=== PATIENT | female | born 1935 | race Caucasian/White ===

== ENCOUNTER → 2016-11-29 | Outpatient (CLI) | payer MEDICARE, OTHER ==
[~2016-11-29] MED LIST: AMLO10TA4 PO; AMLO10TA82 PO; AMLO5TAB2 PO; APIX5TAB2 PO; ATEN-158 PO; CALC-9 PO; CYAN500L PO; DGX.125T PO; DICL75TA2 PO; FLEC50TA18 PO; FOLI0.4T2 PO; FURO20TA PO; FURO20TA4 PO; GLUC-113 PO; HYDR-3714 PO; HYDR-3720 PO; IRON150C6 PO; LEVO75TA57 PO; LOVA10TA PO; LOVA20TA2 PO; MULT-963 PO; OMEG1CAP51 PO
--- OUTSIDE RECORDS SUMMARY | 2016-11-29 13:13 | XMS REPORT | Continuity of Care Document ---
Author Author [facility] Organization [facility] Address Unknown Phone Unavailable Care Team Providers Care Government Property Inspector Name Role Phone No Pcp, Na PCP Unavailable Source Comments Some departments are not documenting in the electronic medical record. If you do not see the information that you expected, contact Release of Information in the Health Information Management department at [phone] for further assistance in locating additional records.[facility] Active Allergies and Adverse Reactions No Known Allergies Current Medications Prescription Sig. Disp. Refills Start End Date Status Date apixaban(+) (ELIQUIS) 5 Take 5 mg by mouth twice Active mg Tab tablet daily. atenolol (TENORMIN) 50 mg Take 50 mg by mouth Active tablet daily. amLODIPine (NORVASC) 10 Take 10 mg by mouth Active mg tablet daily. diclofenac sodium DR Take 75 mg by mouth twice Active (VOLTAREN) 75 mg tablet daily. flecainide (TAMBOCOR) 50 Take 50 mg by mouth every Active mg tablet 8 hours. levothyroxine (SYNTHROID) Take 75 mcg by mouth Active 75 mcg tablet daily. lovastatin(+) (MEVACOR) Take 10 mg by mouth Active 10 mg tablet daily. Calcium-Cholecalciferol Take 1 Cap by mouth Active (D3) (CALCIUM 600 + D(3)) daily. 600 mg calcium- 200 unit cap fish oil /omega-3 fatty Take 1 Cap by mouth Active acids (SEA-OMEGA) daily. 340/1000 mg capsule cyanocobalamin(+) Take 500 mcg by mouth Active (VITAMIN B-12) 500 mcg daily. tablet MULTIVITAMIN PO Take 1 Cap by mouth Active daily. folic acid 400 mcg tablet Take 400 mcg by mouth Active daily. digoxin (LANOXIN) 125 mcg Take 0.125 mg by mouth Active tablet daily. Active Problems Problem Noted Date Atrial fibrillation (HCC) 08/16/2013 Hypothyroidism 08/16/2013 HTN (hypertension) 08/16/2013 Social History Tobacco Use Types Packs/Day Years Used Date Never Smoker Smokeless Tobacco: Never Used Alcohol Use Drinks/Week oz/Week Comments No Last Filed Vital Signs Vital Sign Reading Time Taken Blood Pressure 128/74 08/26/2013 9:50 AM CDT Pulse 59 08/26/2013 9:50 AM CDT Temperature - - Respiratory Rate - - Height 1.651 m (5' 5") 08/26/2013 9:50 AM CDT Weight 62.959 kg (138 lb 12.8 08/26/2013 9:50 AM CDT oz) Body Mass Index 23.1 08/26/2013 9:50 AM CDT Oxygen Saturation - - Plan of Care Health Maintenance Due Date Last Done Comments Physical (Comprehensive) 1944 Exam Pertussis Vaccine 1948 Tetanus Vaccine 1954 Breast Cancer Screening 1977 Shingles Vaccine 1997 Osteoporosis Screening 2002 Prevnar/Pneumovax (#1) 2002 Influenza Vaccine 07/21/2015 Results from Last 3 Months Not on file
--- NOTE | 2016-11-30 14:47 | Diagnostic Imaging Report ---
Bilateral screening mammogram The current study was also evaluated with a Computer Aided Detection (CAD) system. INDICATION: Screening. No current complaints stated on the questionnaire. COMPARISON: 11/27/2015. FINDINGS: The breasts are composed of scattered fibroglandular densities. There are scattered benign-appearing calcifications and vascular calcification seen. Allowing for technique and positional differences, no suspicious change is seen. IMPRESSION: No significant change. ACR BI-RADS Category 2: Benign findings. Result letter will be mailed to the patient. Note: At least 10% of breast cancer is not imaged by mammography. Dictated by: Dictated on workstation # [id number]
== END ==
LOC: RAD 13:09
PROVIDERS: ATTEND Internal Medicine
DX: Z12.31 Encounter for screening mammogram for malignant neoplasm of breast (principal)

== ENCOUNTER → 2017-02-09 | Outpatient (CLI) | payer MEDICARE, OTHER ==
--- NOTE | 2017-02-09 10:38 | Diagnostic Imaging Report ---
INDICATION: Pneumonia and cough. PA and lateral views of the chest are obtained. Comparison is made to the study of 03/28/2016. FINDINGS: Heart size and pulmonary vascularity are within normal limits, and the lungs are clear, bilaterally. IMPRESSION: Unremarkable chest. Dictated by: Dictated on workstation # [id number]
== END ==
LOC: RAD 09:58
PROVIDERS: ATTEND Internal Medicine
DX: R05 Cough (principal)
CPT/HCPCS: 71020

== ENCOUNTER → 2017-02-27 | Outpatient (CLI) | payer MEDICARE, OTHER ==
--- NOTE | 2017-02-28 08:10 | ECHOCARDIOGRAPHY REPORT ---
PROCEDURE PHYSICIAN: THERON BELLA DATE OF PROCEDURE: 02/27/2017 TWO DIMENSIONAL ECHOCARDIOGRAM REPORT PRIMARY PHYSICIAN: OTHER PHYSICIAN: REFERRING PHYSICIAN: Dr. Cheyenne Sanders ORDERING PHYSICIAN: INDICATION FOR THE PROCEDURE: Atrial fibrillation. MEASUREMENTS DERIVED VALUES LV DIAMETER (LAX) NORMALS NORMALS Diastolic 3.5 (3.6-5.2) Eject. Fract. 60% (60%+/-6%) Systolic (2.3-3.9) Diastolic Vol. % Shortening (0.22-0.42) Systolic Vol. Aortic Root IVS THICKNESS Diastolic 1.1 (0.6-1.1) LVPW THICKNESS Diastolic 1.1 (0.6-1.1) LA DIAMETER Systolic 3.3 (2.1-3.7) FINDINGS: 1. Technical quality is good. 2. The left ventricle is normal in size with normal contractility. Systolic function appeared to be normal. Estimated ejection fraction 60%. Diastolic dysfunction is suggested by Doppler. 3. The left atrium is normal in size. No clot or thrombus were seen within the left atrium. 4. The right atrium and right ventricle are normal in size. No clot or thrombus were seen within the right side. 5. Mitral valve is normal in morphology with mild mitral regurgitation noted by color Doppler flow. No mitral valve prolapse. No mitral valve stenosis. 6. Aortic valve is trileaflet with normal opening and closing pattern. No significant aortic stenosis or regurgitation was seen. 7. Tricuspid valve is normal in morphology with mild tricuspid regurgitation noted by color Doppler flow. Doppler across tricuspid valve estimated pulmonary artery pressure of 18+ right atrial pressure. 8. Pulmonic valve is functioning normally. 9. No pericardial effusion. IN CONCLUSION: 1. Normal left ventricular size and systolic function. Estimated ejection fraction 60%. Diastolic dysfunction is suggested by Doppler. 2. Mild mitral and tricuspid regurgitation. 3. Estimated pulmonary artery pressure of 25 mmHg. Job ID: [id number] Dictated Date: 02/27/2017 18:14:12 Psychic Reader Date: 02/28/2017 08:05:23 / ian
== END ==
LOC: CARD 12:54
PROVIDERS: ATTEND Physician Assistant
DX: I48.0 Paroxysmal atrial fibrillation (principal); I10 Essential (primary) hypertension; E78.2 Mixed hyperlipidemia; Z82.49 Family history of ischemic heart disease and other diseases of the circulatory system
CPT/HCPCS: 93306

== ENCOUNTER → 2017-03-01 | Outpatient (CLI) | payer MEDICARE, OTHER ==
[~2017-03-01] MED LIST changes: +CATHETER FLUSH 10 ML SYR IV PRN; +REGADENOSON 0.4 MG/5 ML SYR (LEXISCAN) IV ONE
--- NOTE | 2017-03-02 08:54 | STRESS TEST ---
PROCEDURE PHYSICIAN: THERON BELLA DATE OF PROCEDURE: 03/01/2017 LEXISCAN MYOVIEW STRESS TEST REPORT: REFERRING PHYSICIAN: Dr. Cheyenne Sanders. INDICATION FOR THE PROCEDURE: Atrial fibrillation. BASELINE HEART RATE: 61 BASELINE BLOOD PRESSURE: 140/74 BASELINE EKG: Sinus rhythm with no ischemic changes. IN SUMMARY: The patient was injected with 10.97 mCi of technetium 99 Myoview and the resting images were obtained. Then the patient received 0.4 mg of Lexiscan followed by 31.6 mCi of technetium 99 Myoview. Throughout the test, there were no EKG changes. The resting and stress images were reviewed and compared in the short axis, horizontal long axis, and vertical long axis views. Review of the images showed breast attenuation with reversible ischemia involving the whole anterior wall, anteroapical lateral wall and anterior septum. SSS is 10, SDS 8, TID value 0.9. On the gated images, the left ventricle appeared to be normal size with normal contractility. Calculated ejection fraction 71%. IN CONCLUSION: 1. The patient tolerated Lexiscan well. 2. Breast attenuation with reversible ischemia involving the whole anterior wall, anterolateral wall and anterior septum. 3. Normal left ventricular size with normal contractility. Calculated ejection fraction 71%. Job ID: [id number] Dictated Date: 03/01/2017 17:01:00 Intermediate Project Manager Date: 03/02/2017 08:48:58 / ian
== END ==
LOC: CARD 06:53
PROVIDERS: ATTEND Physician Assistant
DX: I48.0 Paroxysmal atrial fibrillation (principal); I10 Essential (primary) hypertension; E78.2 Mixed hyperlipidemia; Z82.49 Family history of ischemic heart disease and other diseases of the circulatory system
CPT/HCPCS: 78452; 93017

== ENCOUNTER 2017-03-22 06:47 | Day surgery (SDC) | payer MEDICARE, OTHER ==
[2017-03-22] VITALS (10 sets, daily range): BP systolic 96–139; BP diastolic 53–77
[~2017-03-22] VITALS: Ht 160 cm; Wt 64.9 kg
[~2017-03-22 06:47] MED LIST changes: -CATHETER FLUSH 10 ML SYR IV PRN; -REGADENOSON 0.4 MG/5 ML SYR (LEXISCAN) IV ONE
[2017-03-22] MEDS ORDERED: LIDOCAINE 1% INJ 20 ML (XYLOCAINE) VIAL ONE (06:52)
[2017-03-22] MEDS ORDERED: NS IV 1000 ML 1,000 ML ONE (06:52)
[2017-03-22] MEDS ORDERED: HEParin (CATH LAB) 2,000 ML IV ONE (06:53)
[2017-03-22 07:21] LABS: MEAN PLATELET VOLUME 10.1 FL (7.4-10.4); RED BLOOD COUNT 4.13 10^6/uL (4.35-5.85); RED CELL DISTRIBUTION WIDTH 13.3 % (10.0-14.5); WHITE BLOOD COUNT 5.9 10^3/uL (4.3-11.0)
[2017-03-22 07:29] LABS: INR 1.1 (0.8-1.4); PROTHROMBIN TIME PATIENT 13.6 SEC (12.2-14.7)
[2017-03-22] MEDS ORDERED: NS IV 1000 ML 1,000 ML IV SCH ×2 (07:30→09:38)
[2017-03-22 07:42] LABS: ALANINE AMINOTRANSFERASE 40 U/L (0-55); ALBUMIN 4.7 G/DL (3.2-4.5); ANION GAP 13 MMOL/L (5-14); ASPARTATE AMINO TRANSFERASE 37 U/L (5-34); BILIRUBIN,TOTAL 0.9 MG/DL (0.1-1.0); BLOOD UREA NITROGEN 12 MG/DL (7-18); BUN/CREATININE RATIO 13; CALCIUM 9.8 MG/DL (8.5-10.1); CARBON DIOXIDE 24 MMOL/L (21-32); CHLORIDE 102 MMOL/L (98-107); CHOLESTEROL 195 MG/DL (< 200); CREATININE SERUM 0.89 MG/DL (0.60-1.30); DIRECT LDL 103 MG/DL (1-129); GFR ESTIMATED > 60; GLUCOSE 101 MG/DL (70-105); POTASSIUM 3.6 MMOL/L (3.6-5.0); SODIUM 139 MMOL/L (135-145); TOTAL PROTEIN 7.5 G/DL (6.4-8.2); TRIGLYCERIDES 71 MG/DL (<150); VLDL CHOLESTEROL 14 MG/DL (5-40)
--- NOTE | 2017-03-22 08:10 | Diagnostic Imaging Report ---
INDICATION: Preoperative evaluation prior to coronary angioplasty. Portable upright view of the chest is obtained with comparison made to study of 02/09/2017. FINDINGS: Heart size and pulmonary vascularity are within normal limits, and the lungs are clear, bilaterally. IMPRESSION: Unremarkable chest. Dictated by: Dictated on workstation # [id number]
[2017-03-22] MEDS ORDERED: MIDAZOLAM 5 MG/5 ML (VERSED) VIAL ONE (08:49)
[2017-03-22] MEDS ORDERED: fentaNYL INJECTION 100 MCG/2 ML AMP ONE (08:49)
--- NOTE | 2017-03-22 08:54 | Cardiac Procedure Note-CS/ASA ---
Pre-Procedure Note Pre-Op Procedure Note H&P Reviewed The H&P was reviewed, patient examined and no changes noted. Date H&P Reviewed: March 22, 2017 Time H&P Reviewed: 08:54 Conscious Sedation Pre-Proced Time Reviewed: 08:54 ASA Class: 3 Airway Mallampati Classification: (blackfeet appropriate class) I. II. III, IV Lungs Heart ASA score ASA 1: a normal healthy patient ASA 2: a patient with a mild systemic disease (mid diabetes, controlled hypertension, obesity x ASA 3: a patient with a severe systemic disease that limits activity (angina , COPD, prior Myocardial infarction) ASA 4: a patient with an incapacitating disease that is a constant threat to life (CHF, renal failure) ASA 5: a moribund patient not expected to survive 24 hrs. (ruptured aneurysm) ASA 6: a declared brain patient whose organs are being harvested. For emergent operations, add the letter E after the classification Grade 3 Sedation Plan: Analgesia, Amnesia, Plan communicated to team members, Discussed options with patient/fam, Discussed risks with patient/fam Note The patient is an appropriate candidate to undergo the planned procedure, sedation, and anesthesia. The patient immediately re-assessed prior to indication. THERON BELAL MD March 22, 2017 08:54
--- NOTE | 2017-03-22 09:40 | Discharge Inst-Post CATH ---
Discharge Inst-CATH Post Cardiac Cath D/C Inst Follow Up/Plan Appointment with Dr Mcfarland's office in 2-4 weeks CARDIAC CATH DISCHARGE INSTRUCTIONS *Hold Metformin for 48 hours post heart cath. ACTIVITY * Go Home directly and rest. * Limit activity of the leg (or wrist if it was used) for 7 days including aerobics, swimming, jogging, bicycling, etc. * Restrict stair-climbing for 7 days if possible, if not, climb up with your non -cath leg, then bring together on the same step. * Avoid lifting, pushing, pulling or excessive movement of the affected extremity for 7 days. * Customary sexual activity may be resumed after 2 days-use caution not to use a position that strains or causes pain to the affected extremity. * No driving for 24 hours. * NO SMOKING. * Avoid straining for bowel movements for 7 days. * Gentle walking on level ground is allowed. * Returning to work will depend on the type of procedure and the results. Your doctor will discuss this with you. CALL YOUR DOCTOR FOR ANY OF THE FOLLOWING: *If bleeding from the puncture site occurs- Apply gentle pressure to site with clean cloth and call your doctor or EMS. * If a knot or lump forms under the skin, increases in size, or causes pain. * If bruising appears to be worsening or moving further down your leg instead of disappearing. * Temperature above 101 F. CARE OF YOUR GROIN INCISION; * Bruising or purple discoloration of the skin near the puncture site is common. * You may shower only, no bathtub bathing for 5 days. Be careful to avoid slipping as your leg may feel stiff. * If a closure device was used on your femoral artery, please see the attached guide regarding care of the device and your leg. * REMOVE the dressing from your groin the next day after your procedure in the shower. CARE OF YOUR WRIST INCISION; * Bruising or purple discoloration of the skin near the puncture site is common. * You may shower. * DO NOT submerge wrist. * Remove dressing in 24 hours. THERON MCFARLAND MD March 22, 2017 09:40
[2017-03-22] MEDS ORDERED: PATIENT MAY USE OWN MEDS, ALL PO SCH (09:45)
--- NOTE | 2017-03-22 18:25 | CARDIAC CATHETERIZATION ---
DATE OF SERVICE: 03/22/2017 CARDIAC CATHETERIZATION REFERRING PHYSICIAN: Dr. Cheyenne Sanders. BRIEF HISTORY: The patient is a 81-year-old lady with history of sick sinus syndrome, paroxysmal atrial fibrillation. The patient had an abnormal stress test with anterior wall ischemia. She was scheduled for left heart catheterization, possible PTCA. PROCEDURE NOTE: After explaining the procedure to the patient, all pros and cons were explained. All questions were answered. The patient signed the consent and then she was placed on the cardiac catheterization laboratory. Right groin was prepped in a sterile fashion. Local anesthesia applied to the right groin. A 6-[place] sheath was placed in the right femoral artery. Combination of right and left Elizabeth catheter were used to access the right and left coronary system. Multiple views were obtained. Pigtail catheter advanced to the left ventricular cavity. Pressure was done. No left ventriculogram was done. Pullback LV to aorta was done. Aortic arch angiogram was done. At the end of the procedure sheath was removed, Mynx device deployed, hemostasis achieved. TOTAL CONTRAST USED: 46 mL. TOTAL RADIATION DOSE: 15 mGy. FINDINGS: Hemodynamics: LV pressure 138/7, end-diastolic pressure of 7, aortic pressure 115/45, mean of 71. ANATOMY: 1. The left main coronary artery is bifurcating into left anterior descending and left circumflex artery with no obstructive disease. 2. Left anterior descending artery is moderate in size with mild disease, nonobstructive disease. 3. Left circumflex artery is moderate in size with mild disease, nonobstructive disease. 4. Right coronary artery is moderate in size, mild disease, no significant obstructive disease. 5. Left ventricle end diastolic pressure was normal. 6. Aortic arch angiogram was done in the left anterior oblique position, hypertensive changes in the aortic arch. No dissection or aneurysm was seen. Origin of the innominate artery, left subclavian artery and left carotid appeared normal. IN CONCLUSION: 1. Mild coronary artery disease, nonobstructive disease. 2. Normal left ventricular end diastolic pressure. 3. Hypertensive changes in the aortic arch. No dissection or aneurysm. DISCUSSION AND RECOMMENDATIONS: Medical therapy is recommended. No intervention is needed. It is noted that abnormal stress test is probably due to small vessel disease or extracardiac attenuation. FINAL DIAGNOSES: 1. Coronary artery disease. 2. Paroxysmal atrial fibrillation. 3. Sick sinus syndrome. 4. Hypertension. 5. Hyperlipidemia. Job ID: [id number] DocumentID: [id number] Dictated Date: 03/22/2017 09:43:05 Plan Coordinator Date: 03/22/2017 13:11:50 Dictated By: THERON BELLA MD
== END 2017-03-22 14:10 | disposition home or self-care (01) ==
LOC: CATH 06:47
PROVIDERS: ATTEND Internal Medicine Cardiovascular Disease
DX: R94.39 Abnormal result of other cardiovascular function study (principal); I48.0 Paroxysmal atrial fibrillation; I49.5 Sick sinus syndrome; I25.10 Atherosclerotic heart disease of native coronary artery without angina pectoris; I10 Essential (primary) hypertension; E78.5 Hyperlipidemia, unspecified; Z79.01 Long term (current) use of anticoagulants; Z79.899 Other long term (current) drug therapy
CPT/HCPCS: 36221; 36415; 71010; 80053; 80061; 85027; 85610; 85730; 87081; 93005; 93458

== ENCOUNTER → 2017-05-05 | Outpatient (CLI) | payer MEDICARE, OTHER | LOC: RT 12:52 | PROVIDERS: ATTEND Internal Medicine | DX: R06.02 Shortness of breath (principal) | CPT/HCPCS: 94060; 94726; 94729 ==

== ENCOUNTER → 2019-12-25 | Outpatient (CLI) | payer MEDICARE, OTHER ==
[~2019-12-25] VITALS: Ht 165 cm; Wt 68.0 kg
[~2019-12-25] MED LIST changes: +CATHETER FLUSH 10 ML SYR IV PRN; +REGADENOSON 0.4 MG/5 ML SYR (LEXISCAN) IV ONE
[2019-12-25 13:07] VITALS: BP 142/69
[2019-12-25 13:13] VITALS: BP 134/67
--- NOTE | 2019-12-25 18:03 | STRESS TEST ---
DATE OF SERVICE: 12/25/2019 LEXISCAN MYOVIEW STRESS TEST REFERRING PHYSICIAN: Cheyenne Sanders DO Baseline heart rate is 55. Baseline blood pressure is 142/69. Baseline EKG is sinus rhythm with no ischemic changes. In summary, the patient was injected with 9.97 mCi of technetium-99 Myoview and the resting images were obtained. Then, the patient received 0.4 mg of Lexiscan followed by 31.2 mCi of technetium-99 Myoview. Throughout the test, there were no EKG changes. The resting and stress images were reviewed and compared in the short axis, horizontal long axis, and vertical long axis views. Review of the images showed good radiotracer uptake with no significant ischemia or infarction. SSS is 4, SDS 2, TID value 1.01. On the gated images, the left ventricle appeared to be normal size with normal contractility. Calculated ejection fraction is 79%. CONCLUSION: 1. The patient tolerated Lexiscan well. 2. Breast attenuation with no significant ischemia or infarction on SPECT images. 3. Normal left ventricular size with normal contractility. Calculated ejection fraction is 79%. Job ID: [id number] DocumentID: [id number] Dictated Date: 12/25/2019 15:38:29 Pipe Stress Engineer Date: 12/25/2019 18:02:35 Dictated By: THERON BELLA MD
== END ==
LOC: CARD 12:01
PROVIDERS: ATTEND Internal Medicine Cardiovascular Disease
DX: I48.0 Paroxysmal atrial fibrillation (principal); R42 Dizziness and giddiness; I10 Essential (primary) hypertension; E78.5 Hyperlipidemia, unspecified
CPT/HCPCS: 78452; 93017

== ENCOUNTER → 2019-12-30 | Outpatient (CLI) | payer MEDICARE, OTHER ==
[~2019-12-30] MED LIST changes: -CATHETER FLUSH 10 ML SYR IV PRN; -REGADENOSON 0.4 MG/5 ML SYR (LEXISCAN) IV ONE
== END ==
LOC: CARD 14:06
PROVIDERS: ATTEND Internal Medicine Cardiovascular Disease
DX: I48.0 Paroxysmal atrial fibrillation (principal); R42 Dizziness and giddiness; I10 Essential (primary) hypertension; E78.5 Hyperlipidemia, unspecified; I08.0 Rheumatic disorders of both mitral and aortic valves
CPT/HCPCS: 93306

== ENCOUNTER → 2020-05-14 | Outpatient (CLI) | payer MEDICARE, OTHER ==
--- NOTE | 2020-05-14 17:27 | Diagnostic Imaging Report ---
EXAM: Bilateral breast ultrasound, complete. INDICATION: Bilateral breast lumps and breast pain. All 4 quadrants of each breast were examined as well as the retroareolar regions and the axillae. The diagnostic mammogram performed earlier today failed to show any sign of malignancy or of an acute abnormality to account for the patient's breast pain. On this study, there is no discrete solid or cystic mass evident within either breast. There is no sign of an abscess either. If clinical concern regarding an underlying mass persists, then biopsy should still be considered. IMPRESSION: 1. There is no evidence for a mass or for an acute abnormality involving either breast. Clinical follow-up is recommended. ACR category 1. ACR BI-RADS Category 1: Negative. Result letter will be mailed to the patient. Note: At least 10% of breast cancer is not imaged by mammography. Dictated by: Dictated on workstation # [id number]
--- NOTE | 2020-05-14 21:27 | Diagnostic Imaging Report ---
INDICATION: Bilateral breast masses and bilateral breast pain. EXAMINATION: Bilateral breast digital diagnostic mammogram with CAD. 3D tomographic images were obtained and reviewed. The current study was also evaluated with a Computer Aided Detection (CAD) system. FINDINGS: This study was compared to the prior exam of 11/29/2016, 11/27/2015 and 11/05/2014. Reportedly, the patient has bilateral breast masses. However, at the time of this study, the patient could not identify any specific mass. She did state that she had pain in the upper inner aspect of the left breast. A marker was placed over this area. This study is less than optimal due to mild motion artifact. There are scattered fibroglandular densities in both breasts which could obscure a lesion. Overall, there does not appear to have been any significant change since the prior exam. There is no evidence for malignancy and there is no abnormality to account for the patient's breast pain. IMPRESSION: 1. There is no evidence of malignancy or for an acute abnormality. 2. Ultrasound of both breasts is pending for further study. ACR BI-RADS Category 0: Incomplete. (Needs additional imaging evaluation). Result letter will be mailed to the patient. Note: At least 10% of breast cancer is not imaged by mammography. Dictated by: Dictated on workstation # [id number]
== END ==
LOC: RAD 13:44
PROVIDERS: ATTEND Internal Medicine
DX: N63.20 Unspecified lump in the left breast, unspecified quadrant (principal); N63.10 Unspecified lump in the right breast, unspecified quadrant
CPT/HCPCS: 76641; 77066; G0279; 77062

== ENCOUNTER → 2020-12-22 | Outpatient (CLI) | payer MEDICARE, OTHER ==
--- NOTE | 2020-12-22 17:45 | Diagnostic Imaging Report ---
CLINICAL HISTORY: Back pain. COMPARISON: None. TECHNIQUE: Single AP view of the pelvis was obtained. FINDINGS: There is no acute fracture or dislocation of the pelvis and bilateral hips. Alignment is anatomic. The imaged joint spaces are preserved. The surrounding soft tissues are unremarkable. IMPRESSION: 1. No acute fracture or dislocation in the pelvis and bilateral hips. Dictated by: Dictated on workstation # [id number]
--- NOTE | 2020-12-22 17:45 | Diagnostic Imaging Report ---
EXAMINATION: Lumbosacral spine 2 or 3 views. HISTORY: Back pain. COMPARISON: 11/15/2011. FINDINGS: No acute fracture or dislocation is seen in the lumbar spine. There is left convexity curvature of the lumbar spine centered at the L3 level. Grade 1 anterolisthesis of L4 on L5 and L5 on S1 is noted. Multilevel degenerative changes are seen in the lumbar spine with disc height loss, disc osteophyte complexes, and facet hypertrophy. These are most prominent at the L1-L2 and L2-L3 levels. There is calcified aortic atherosclerotic plaque. IMPRESSION: 1. No acute fracture or dislocation in the lumbar spine. 2. Multilevel degenerative changes in the lumbar spine, greatest at L1-L2 and L2-L3. 3. Left convexity curvature of the lumbar spine with grade 1 anterolisthesis of L4 on L5 and L5 on S1. Dictated by: Dictated on workstation # [id number]
--- NOTE | 2020-12-22 19:09 | Diagnostic Imaging Report ---
INDICATION: Back pain. TIME OF EXAM: 5:18 PM Multiple views of sacrum and coccyx were obtained. Sacrococcygeal alignment appears normal. No definite fracture is identified. SI joints are not widened. Arcuate lines are intact. IMPRESSION: No acute bony abnormality is detected. Dictated by: Dictated on workstation # [id number]
== END ==
LOC: RAD 17:04
PROVIDERS: ATTEND Internal Medicine
DX: M47.816 Spondylosis without myelopathy or radiculopathy, lumbar region (principal); M43.8X6 Other specified deforming dorsopathies, lumbar region; M43.17 Spondylolisthesis, lumbosacral region
CPT/HCPCS: 72100; 72170; 72220

== ENCOUNTER 2021-01-13 17:03 | Inpatient (IN) | payer MEDICARE, OTHER ==
[~2021-01-13] VITALS: Ht 155 cm; Wt 70.6 kg
--- NOTE | 2021-01-13 17:52 | ED General ---
General Chief Complaint: Dizziness/Syncope Stated Complaint: SOB / WEAKNESS Nursing Triage Note: PT STATES DIZZINESS THIS MORNING, STATES THIS HAS BEEN GOING ON FOR A WEEK. AT TRIAGE PT'S PULSE DROPPED TO 27 AFTER INITIALLY BEING 101 IN A-FIB,THEN SLOWLY CAME BACK UP INTO THE 50'S CONVERTING INTO SINUS ADALBERTO RHYTHM. Nursing Sepsis Screen: No Definite Risk Source of Information: Patient, Family Exam Limitations: No Limitations History of Present Illness Date Seen by Provider: Jan 13, 2021 Time Seen by Provider: 17:35 Initial Comments Patient is an 85-year-old female who presents to the emergency department today with a chief complaint of feeling dizzy, weak and intermittently short of breath. Patient has significant dementia and is unable to recall really any of the details of the day. She does recall that she was at home with her when she had this "spell". Patient denies feeling sick, no fevers no productive cough. She tells me that she recently had her second Covid vaccination. She denies any nausea, vomiting, diarrhea or problems with bladder function. She denies any pain to her chest abdomen or extremities. She cannot recall if she ate anything today or not. She is asking for her as he is able to provide more of a history is able to tell me that for the last week she has had these episodes where she becomes very dizzy and short of breath and so weak that she almost cannot stand. He was concerned that it was related to her second Covid vaccine but the symptoms have been going on longer than that. He is in charge of her medications and states that she has not missed any doses of her daily medications. All other review of systems reviewed and negative except as stated. Timing/Duration: 1-3 Hours Severity: Moderate Associated Systoms: Denies Symptoms Allergies and Home Medications Allergies Coded Allergies: No Known Drug Allergies (Verified , 11/21/07) Home Medications Amlodipine Besylate 10 Mg Tablet, 10 MG PO DAILY, (Reported) Apixaban 5 Mg Tablet, 5 MG PO BID, (Reported) Atenolol 50 Mg Tab, 50 MG PO DAILY, (Reported) Calcium Carbonate/Vitamin D3 1 Each Tablet, 600 MG PO DAILY, (Reported) Cyanocobalamin 500 Mcg Lozenge, 500 MCG PO DAILY, (Reported) Diclofenac Sodium 75 Mg Tablet.dr, 75 MG PO BID, (Reported) Flecainide Acetate 50 Mg Tablet, 50 MG PO 0600, 1400, 2200, (Reported) Folic Acid 0.4 Mg Tablet, 0.4 MG PO DAILY, (Reported) Gluc 2KCL/Chondr/Abner Hy/Hy Ac 1 Each Capsule, 1 CAP PO BID, (Reported) Levothyroxine Sodium 75 Mcg Tablet, 75 MCG PO DAILY, (Reported) Lovastatin 20 Mg Tablet, 20 MG PO DAILY, (Reported) Multivitamin 1 Each Tablet, 1 TAB PO DAILY, (Reported) [place]-3 Fatty Acids/Fish Oil 1 Each Capsule, 1,000 MG PO DAILY, (Reported) Patient Home Medication List Home Medication List Reviewed: Yes Review of Systems Review of Systems Constitutional: see HPI EENTM: no symptoms reported Respiratory: short of breath Gastrointestinal: no symptoms reported Genitourinary: no symptoms reported Musculoskeletal: no symptoms reported Skin: no symptoms reported Psychiatric/Neurological: Weakness (Dizziness) All Other Systems Reviewed Negative Unless Noted: Yes Past Uvbhtap-Uzlypy-Cwipjp Hx Patient Social History Recent Infectious Disease Expo: No Immunizations Up To Date Tetanus Booster (TDap): Less than 5yrs PED Vaccines UTD: No Date of Pneumonia Vaccine: Aug 20, 2014 Past Medical History Abdominal, Appendectomy, Eye Surgery, Hysterectomy, Oophorectomy, Orthopedic, Thyroidectomy Pneumonia Atrial Fibrillation, High Cholesterol, Hypertension Reproductive Disorders: No Female Reproductive Disorders: Denies Sexually Transmitted Disease: No HIV/AIDS: No Arthritis Hypothyroidsim Loss of Vision: Denies Skin Anxiety Adverse Reaction/Blood Tranf: No Family Medical History Patient reports no known family medical history. Physical Exam Vital Signs Vital Signs - First Documented 01/13/21 17:24 Temp 36.7 Pulse 101 Resp 18 B/P (MAP) 152/80 (104) O2 Delivery Room Air Capillary Refill : Less Than 3 Seconds Height, Weight, BMI Height: 5'5.00" Weight: 152lbs. 0.0oz. 68.600198tx; 28.00 BMI Method:Stated General Appearance: No Apparent Distress, WD/WN Eyes: Bilateral Eye Normal Inspection, Bilateral Eye PERRL, Bilateral Eye EOMI Respiratory: Lungs Clear, Normal Breath Sounds Cardiovascular: Irregularly Irregular, Tachycardia Gastrointestinal: Non Tender, Soft Extremity: Normal Inspection, Normal Range of Motion, Non Tender Neurologic/Psychiatric: Alert, Oriented x3, No Motor/Sensory Deficits, Normal Mood/Affect Skin: Normal Color, Warm/Dry Progress/Results/Core Measures Suspected Sepsis Recent Fever Within 48 Hours: No Infection Criteria Present: None New/Unexplained Altered Menta: No Sepsis Screen: No Definite Risk SIRS Temperature: Pulse: 101 Respiratory Rate: 18 Laboratory Tests 01/13/21 17:52: White Blood Count 5.6 Blood Pressure 152 /80 Mean: 104 Laboratory Tests 01/13/21 17:52: INR Comment 1.1, Platelet Count 254 Results/Orders Lab Results Laboratory Tests Test 01/13/21 17:52 Range/Units White Blood Count 5.6 4.3-11.0 10^3/uL Red Blood Count 4.09 3.80-5.11 10^6/uL Hemoglobin 14.1 11.5-16.0 g/dL Hematocrit 41 35-52 % Mean Corpuscular Volume 101 H 80-99 fL Mean Corpuscular Hemoglobin 35 H 25-34 pg Mean Corpuscular Hemoglobin Concent 34 32-36 g/dL Red Cell Distribution Width 13.5 10.0-14.5 % Platelet Count 254 130-400 10^3/uL Mean Platelet Volume 10.3 9.0-12.2 fL Immature Granulocyte % (Auto) 0 % Neutrophils (%) (Auto) 48 42-75 % Lymphocytes (%) (Auto) 32 12-44 % Monocytes (%) (Auto) 12 0-12 % Eosinophils (%) (Auto) 7 0-10 % Basophils (%) (Auto) 1 0-10 % Neutrophils # (Auto) 2.7 1.8-7.8 10^3/uL Lymphocytes # (Auto) 1.8 1.0-4.0 10^3/uL Monocytes # (Auto) 0.7 0.0-1.0 10^3/uL Eosinophils # (Auto) 0.4 H 0.0-0.3 10^3/uL Basophils # (Auto) 0.1 0.0-0.1 10^3/uL Immature Granulocyte # (Auto) 0.0 0.0-0.1 10^3/uL Prothrombin Time 14.8 H 12.2-14.7 SEC INR Comment 1.1 0.8-1.4 Activated Partial Thromboplast Time 32 24-35 SEC Sodium Level 139 135-145 MMOL/L Potassium Level 4.3 3.6-5.0 MMOL/L Chloride Level 102 98-107 MMOL/L Carbon Dioxide Level 25 21-32 MMOL/L Anion Gap 12 5-14 MMOL/L Glucose Level 89 70-105 MG/DL Calcium Level 10.3 H 8.5-10.1 MG/DL My Orders Orders - MARY ROMERO MD Cbc With Automated Diff (01/13/21 17:50) Basic Metabolic Panel (01/13/21 17:50) Chest 1 View, Ap/Pa Only (01/13/21 17:50) Ekg Tracing (01/13/21 17:50) Ed Iv/Invasive Line Start (01/13/21 17:50) Thyroid Stimulating Hormone (01/13/21 17:50) Partial Thromboplastin Time (01/13/21 17:57) Protime With Inr (01/13/21 17:57) Vital Signs/I&O 01/13/21 17:24 Temp 36.7 Pulse 101 Resp 18 B/P (MAP) 152/80 (104) O2 Delivery Room Air Capillary Refill : Less Than 3 Seconds Blood Pressure Mean: 104 Progress Note : Time: 18:05 Progress Note Case discussed with both Dr. Ruiz and Dr. Gross. Will admit the patient to the ICU overnight for sick sinus syndrome. Patient at this time has a very adequate blood pressure with a 150 systolic. She is asymptomatic currently. She is resting comfortably in the bed. I have communicated the plan of care to the and the patient and they are both comfortable with this. We will hold her atenolol and amlodipine and her Eliquis at this time. Patient will be started on Lovenox 1 mg/kg twice daily with pharmacy to dose. ECG Initial ECG Impression Date: Jan 13, 2021 Initial ECG Impression Time: 17:27 Initial ECG Rate: 101 Initial ECG Rhythm: A Fib/Flutter Initial ECG Impression: Atrial Fibrillation EKG : EKG Time: 17:34 Rate: 51 Rhythm: S.Adalberto Intervals: [place] (296) ECG Comparisson: Changed ECG Impression: 1st Degree AV Block Critical Care Note Critical Care Start Time: 17:35 Stop Time: 18:05 Total Time (minutes) 30 minutes critical care time in the evaluation and management of this patient with symptomatic bradycardia. Time includes review of the medical records, evaluation of the patient, discussion with cardiology and the patient's primary care physician. Departure Communication (Admissions) Time/Spoke to Admitting Phy: 18:[address] Gross who accepts the patient for admission Time/Spoke to Consulting Phy: 17:[address] Mcfarland, advises to stop the atenolol, amlodipine and Eliquis for now. Start Lovenox 1 mg/kg weight-based dose. Impression Primary Impression: Sick sinus syndrome Disposition: ADMITTED INPATIENT Condition: Stable Admissions Decision to Admit Reason: Admit from ER (General) Decision to Admit/Date: Jan 13, 2021 Time/Decision to Admit Time: 18:06 Departure-Patient Inst. Referrals: ERIC GROSS DO (PCP/Family) Primary Care Physician Copy Copies To 1: ERIC GROSS DO; THERON MCFARLAND MD, KATHRYN M MD Jan 13, 2021 17:52
[2021-01-13 18:01] LABS: BASOPHILS # (AUTO) 0.1 10^3/uL (0.0-0.1); BASOPHILS % (AUTO) 1 % (0-10); EOSINOPHILS # (AUTO) 0.4 10^3/uL (0.0-0.3); EOSINOPHILS % (AUTO) 7 % (0-10); HEMATOCRIT 41 % (35-52); HEMOGLOBIN 14.1 g/dL (11.5-16.0); LYMPHOCYTES # (AUTO) 1.8 10^3/uL (1.0-4.0); LYMPHOCYTES % (AUTO) 32 % (12-44); MEAN CORPUSCULAR HEMOGLOBIN 35 pg (25-34); MEAN CORPUSCULAR HGB CONC 34 g/dL (32-36); MEAN CORPUSCULAR VOLUME 101 fL (80-99); MEAN PLATELET VOLUME 10.3 fL (9.0-12.2); MONOCYTES # (AUTO) 0.7 10^3/uL (0.0-1.0); MONOCYTES % (AUTO) 12 % (0-12); NEUTROPHILS # (AUTO) 2.7 10^3/uL (1.8-7.8); NEUTROPHILS % (AUTO) 48 % (42-75); PLATELET COUNT 254 10^3/uL (130-400); WHITE BLOOD COUNT 5.6 10^3/uL (4.3-11.0)
[2021-01-13 18:10] LABS: CHLORIDE 102 MMOL/L (98-107); POTASSIUM 4.3 MMOL/L (3.6-5.0); SODIUM 139 MMOL/L (135-145)
[2021-01-13 18:11] LABS: INR 1.1 (0.8-1.4); PROTHROMBIN TIME PATIENT 14.8 SEC (12.2-14.7)
[2021-01-13 18:12] LABS: CALCIUM 10.3 MG/DL (8.5-10.1); GLUCOSE 89 MG/DL (70-105)
[2021-01-13 18:14] LABS: CARBON DIOXIDE 25 MMOL/L (21-32)
[2021-01-13 18:16] LABS: CREATININE SERUM 0.84 MG/DL (0.60-1.30); GFR ESTIMATED > 60
[2021-01-13 18:17] LABS: BUN/CREATININE RATIO 25
--- NOTE | 2021-01-13 18:41 | Diagnostic Imaging Report ---
INDICATION: Dizziness, shortness of breath COMPARISON: 03/22/2017 FINDINGS: Single view of the chest demonstrates clear lungs bilaterally. The heart is normal. There is no pneumothorax. The osseous structures normal. IMPRESSION: Negative chest Dictated by: Dictated on workstation # [id number]
[2021-01-13 19:30] VITALS: BP 157/83
[2021-01-13] MEDS ORDERED: NS IV 1000 ML 1,000 ML ONE (19:37)
[2021-01-13] MEDS: NS IV 1000 ML 1,000 ML IV SCH (19:52)
[2021-01-13] MEDS: ENOXAPARIN 80 MG/0.8 ML (LOVENOX) SYR SC SCH (20:00)
[2021-01-13] MEDS ORDERED: CATHETER FLUSH 10 ML SYR IV PRN (20:00)
[2021-01-13] MEDS ORDERED: LORazepam INJ 2 MG/ML (ATIVAN) VIAL IVP PRN (21:00)
[2021-01-13] MEDS ORDERED: LOPERAMIDE 2 MG (IMODIUM) TABLET PO PRN (21:00)
[2021-01-13] MEDS ORDERED: ONDANSETRON 4 MG/2 ML (SDV) Z0FRAN IVP PRN (21:00)
[2021-01-13] MEDS ORDERED: HALOPERIDOL 5 MG/ML (HALDOL) VIAL IM PRN (21:00)
[2021-01-13] MEDS ORDERED: DOCUSATE SODIUM 100 MG (COLACE) CAP PO PRN (21:00)
[2021-01-13] MEDS ORDERED: ACETAMINOPHEN 500 MG TAB (TYLENOL) PO PRN (21:00)
[2021-01-13] MEDS ORDERED: diphenhydrAMINE 25 MG TAB (BENADRYL) PO PRN (21:00)
[2021-01-13] MEDS ORDERED: ALPRAZolam 0.25 MG (XANAX) TAB PO PRN (21:00)
[2021-01-13] MEDS ORDERED: ZIPRASIDONE 20 MG INJ (GEODON) VIAL IM PRN (21:00)
[2021-01-13] MEDS ORDERED: CALCIUM CARBONATE 500 MG (TUMS) TAB.CHEW PO PRN (21:00)
[2021-01-13] MEDS ORDERED: MELATONIN 3 MG TABLET PO PRN (21:00)
[2021-01-13 21:27] LABS: ALBUMIN 4.7 GM/DL (3.2-4.5); BILIRUBIN,DIRECT 0.2 MG/DL (0.0-0.3); BILIRUBIN,INDIRECT 0.4 MG/DL; BILIRUBIN,TOTAL 0.6 MG/DL (0.1-1.0); TOTAL PROTEIN 8.2 GM/DL (6.4-8.2)
[2021-01-13] MEDS: DONEPEZIL 10 MG (ARICEPT) TAB PO SCH (22:15)
[2021-01-13] MEDS: SENNA W/DOCUSATE (SENOKOT S) TABLET PO SCH (22:15)
[2021-01-13] MEDS ORDERED: DONE10TA41 PO (22:34)
[2021-01-14 03:22] LABS: BASOPHILS % (AUTO) 1 % (0-10); EOSINOPHILS # (AUTO) 0.4 10^3/uL (0.0-0.3); EOSINOPHILS % (AUTO) 5 % (0-10); HEMATOCRIT 38 % (35-52); HEMOGLOBIN 13.2 g/dL (11.5-16.0); LYMPHOCYTES # (AUTO) 1.9 10^3/uL (1.0-4.0); LYMPHOCYTES % (AUTO) 26 % (12-44); MEAN CORPUSCULAR HEMOGLOBIN 34 pg (25-34); MEAN CORPUSCULAR HGB CONC 34 g/dL (32-36); MEAN CORPUSCULAR VOLUME 100 fL (80-99); MEAN PLATELET VOLUME 10.2 fL (9.0-12.2); MONOCYTES # (AUTO) 0.8 10^3/uL (0.0-1.0); MONOCYTES % (AUTO) 10 % (0-12); NEUTROPHILS # (AUTO) 4.4 10^3/uL (1.8-7.8); NEUTROPHILS % (AUTO) 58 % (42-75); PLATELET COUNT 254 10^3/uL (130-400); WHITE BLOOD COUNT 7.5 10^3/uL (4.3-11.0)
[2021-01-14 03:38] LABS: CHLORIDE 106 MMOL/L (98-107); POTASSIUM 3.6 MMOL/L (3.6-5.0); SODIUM 141 MMOL/L (135-145)
[2021-01-14 03:40] LABS: CALCIUM 9.7 MG/DL (8.5-10.1); GLUCOSE 95 MG/DL (70-105)
[2021-01-14 03:42] LABS: CARBON DIOXIDE 22 MMOL/L (21-32)
[2021-01-14 03:44] LABS: CREATININE SERUM 0.78 MG/DL (0.60-1.30); GFR ESTIMATED > 60; PHOSPHORUS 3.2 MG/DL (2.3-4.7)
[2021-01-14 03:45] LABS: BUN/CREATININE RATIO 21
[2021-01-14 03:46] LABS: MAGNESIUM 2.2 MG/DL (1.6-2.4)
[2021-01-14] MEDS: KCL 20 MEQ TAB (K-DUR) PO SCH (04:15)
[2021-01-14] MEDS: POTASSIUM CL 10MEQ/50ML IVPB 50 ML IV SCH ×3 (04:15→05:08)
[2021-01-14] MEDS: MAGNESIUM 1 GM/100 ML IVPB 100 ML IV SCH (04:15)
--- NOTE | 2021-01-14 04:18 | Diagnostic Imaging Report ---
Indication: Shortness of breath Portable chest 2:55 AM Heart size and pulmonary vascularity are normal. Lungs are clear. There are no effusions or pneumothoraces. IMPRESSION: Negative chest Dictated by: Dictated on workstation # [id number]
[2021-01-14] MEDS: LEVOTHYROXINE 75 MCG (LEVOTHROID) TABLET PO SCH (05:08)
--- NOTE | 2021-01-14 05:40 | Pulmonary Consultation ---
History of Present Illness History of Present Illness Date Seen by Provider: Jan 14, 2021 Time Seen by Provider: 05:38 Date of Admission Allergies and Home Medications Allergies Coded Allergies: No Known Drug Allergies (Verified , 11/21/07) Home Medications Amlodipine Besylate 10 Mg Tablet, 5 MG PO DAILY, (Reported) Apixaban 5 Mg Tablet, 5 MG PO BID, (Reported) Atenolol 50 Mg Tab, 50 MG PO DAILY, (Reported) Calcium Carbonate/Vitamin D3 1 Each Tablet, 600 MG PO DAILY, (Reported) Cyanocobalamin 500 Mcg Lozenge, 500 MCG PO DAILY, (Reported) Diclofenac Sodium 75 Mg Tablet.dr, 75 MG PO BID, (Reported) Donepezil HCl 10 Mg Tablet, 10 MG PO HS, (Reported) Flecainide Acetate 50 Mg Tablet, 50 MG PO 0600, 1400, 2200, (Reported) Folic Acid 0.4 Mg Tablet, 0.4 MG PO DAILY, (Reported) Gluc 2KCL/Chondr/Abner Hy/Hy Ac 1 Each Capsule, 1 CAP PO BID, (Reported) Levothyroxine Sodium 75 Mcg Tablet, 75 MCG PO DAILY, (Reported) Lovastatin 20 Mg Tablet, 20 MG PO DAILY, (Reported) Multivitamin 1 Each Tablet, 1 TAB PO DAILY, (Reported) [place]-3 Fatty Acids/Fish Oil 1 Each Capsule, 1,000 MG PO DAILY, (Reported) Past Xwgpwai-Jhdmjy-Qgtofo Hx Patient Social History Alcohol Use: Denies Use Smoking Status: Never a Smoker Recent Infectious Disease Expo: No Recent Hopitalizations: No Have you traveled recently?: No Alcohol Use?: No Immunizations Up To Date Tetanus Booster (TDap): Less than 5yrs PED Vaccines UTD: No Date of Pneumonia Vaccine: Aug 20, 2014 Date of Influenza Vaccine: Oct 20, 2020 Past Medical History Surgeries: Yes (BUNIONECTOMY RIGHT FOOT) Abdominal, Appendectomy, Eye Surgery, Hysterectomy, Oophorectomy, Orthopedic, Thyroidectomy Respiratory: Yes Pneumonia Cardiac: Yes (STRESS TEST 06/2013--MILD DISEASE, NO INTERVENTION. ) Atrial Fibrillation, High Cholesterol, Hypertension Neurological: No Reproductive Disorders: No Female Reproductive Disorders: Denies Sexually Transmitted Disease: No HIV/AIDS: No Gastrointestinal: No Musculoskeletal: Yes Arthritis Endocrine: Yes Hypothyroidsim Loss of Vision: Denies Cancer: Yes (squamous cell) Skin Psychosocial: Yes Anxiety Integumentary: No Blood Disorders: No Adverse Reaction/Blood Tranf: No Family Medical History Patient reports no known family medical history. Review of Systems Time Seen by Provider: 05:40 Sepsis Event Evaluation Height, Weight, BMI Height: 5'5.00" Weight: 152lbs. 0.0oz. [age]yo; 29.05 BMI Method:Stated Exam Exam Vital Signs Date Time Temp Pulse Resp B/P (MAP) Pulse Ox O2 Delivery O2 Flow Rate FiO2 01/14/21 04:00 98 Room Air 01/14/21 04:00 36.0 Room Air 01/14/21 03:00 48 28 166/75 (105) 97 Room Air 01/14/21 02:00 48 24 123/60 (81) 95 Room Air 01/14/21 01:00 48 23 119/69 (86) 96 Room Air 01/14/21 01:00 48 01/14/21 00:00 48 16 135/69 (91) 100 Room Air 01/13/21 23:50 36.5 47 14 99 Room Air 01/13/21 23:50 99 Room Air 01/13/21 23:00 96 24 118/60 (79) 97 Room Air 01/13/21 22:00 54 12 120/82 (95) 96 Room Air 01/13/21 21:00 45 15 123/111 (115) 97 Room Air 01/13/21 20:15 99 Room Air 01/13/21 20:00 58 20 133/70 (91) 99 Room Air 01/13/21 19:36 54 01/13/21 19:30 37.1 50 15 184/77 (112) 99 Room Air 01/13/21 19:30 37.1 50 16 157/83 (112) 99 Room Air 01/13/21 17:24 36.7 101 18 152/80 (104) Room Air I & O 01/14/21 07:00 Intake Total 225 ml Output Total 1050 ml Balance -825 ml Height & Weight Height: 5'5.00" Weight: 152lbs. 0.0oz. 68.401176fm; 29.05 BMI Method:Stated General Appearance: No Apparent Distress, WD/WN Respiratory: Lungs Clear, Normal Breath Sounds Cardiovascular: Irregularly Irregular, Tachycardia Capillary Refill: Less Than 3 Seconds Extremity: Normal Inspection, Normal Range of Motion, Non Tender Neurologic/Psychiatric: Alert, Oriented x3, No Motor/Sensory Deficits, Normal Mood/Affect Skin: Normal Color, Warm/Dry Results Lab Laboratory Tests 01/13/21 17:52 01/14/21 03:06 Assessment/Plan Assessment/Plan Sick sinus syndrome -Cardiology consulted Advanced dementia -Currently lives at home PAVEL CANO DO Jan 14, 2021 05:40
[2021-01-14] MEDS: HYDROcodone/APAP 5 MG/325 MG (LORTAB) TAB PO PRN ×2 (08:02→13:19)
[2021-01-14] MEDS: SENNA W/DOCUSATE (SENOKOT S) TABLET PO SCH ×2 (08:02→20:06)
[2021-01-14] MEDS: ENOXAPARIN 80 MG/0.8 ML (LOVENOX) SYR SC SCH (08:03)
--- NOTE | 2021-01-14 09:47 | Consultation-Cardiology ---
HPI-Cardiology Cardiology Consultation Date of Consultation 01/14/21 Date of Admission Time Seen by Provider: 08:00 Indication: dizziness, sinus node dysfunction HPI Patient is an 85 y/o female with history of CAD, HTN, HLP, dementia. Presented to the ER with complaints of increased dizziness and lightheadedness over the past 2 weeks. reports patient gets so dizzy and weak that she is unable to stand. Noted to have SSS/PAF and tachy-alla episodes and multiple pauses. Denies any syncope. Denies chest pain. Home Medications & Allergies Allergies: Coded Allergies: No Known Drug Allergies (Verified , 11/21/07) Home Medication List Reviewed: Yes ESR-Qgexnw-Qavmzt Hx Patient Social History Marital Status: Recreational Drug Use: No Smoking Status: Never a Smoker Recent Hopitalizations: No Have you traveled recently?: No Alcohol Use?: No Immunizations Up To Date Tetanus Booster (TDap): Less than 5yrs Date of Pneumonia Vaccine: Aug 20, 2014 Date of Influenza Vaccine: Oct 20, 2020 Past Medical History CAD, PAF, HTN, HLP Family Medical History Family History: Patient reports no known family medical history. Review of Systems-General Review of Systems Constitutional: see HPI, malaise, weakness EENTM: see HPI, no symptoms reported Respiratory: see HPI; No cough, No dyspnea on exertion, No hemoptysis, No orthopnea, No phlegm; short of breath; No stridor, No wheezing, No other Cardiovascular: see HPI, other (dizzy spells, lightheadedness, near syncope) Gastrointestinal: no symptoms reported, see HPI Genitourinary: no symptoms reported, see HPI Musculoskeletal: no symptoms reported, see HPI Skin: no symptoms reported, see HPI Psychiatric/Neurological: Weakness (Dizziness), Other (mild confusion) All Other Systems Reviewed Negative Unless Noted: Yes Reviewed Test Results Reviewed Test Results Lab Laboratory Tests 01/13/21 17:52: White Blood Count 5.6, Red Blood Count 4.09, Hemoglobin 14.1, Hematocrit 41, Mean Corpuscular Volume 101H, Mean Corpuscular Hemoglobin 35H, Mean Corpuscular Hemoglobin Concent 34, Red Cell Distribution Width 13.5, Platelet Count 254, Mean Platelet Volume 10.3, Immature Granulocyte % (Auto) 0, Neutrophils (%) (Auto) 48, Lymphocytes (%) (Auto) 32, Monocytes (%) (Auto) 12, Eosinophils (%) (Auto) 7, Basophils (%) (Auto) 1, Neutrophils # (Auto) 2.7, Lymphocytes # (Auto) 1.8, Monocytes # (Auto) 0.7, Eosinophils # (Auto) 0.4H, Basophils # (Auto) 0.1, Immature Granulocyte # (Auto) 0.0, Prothrombin Time 14.8H, INR Comment 1.1, Activated Partial Thromboplast Time 32, Sodium Level 139, Potassium Level 4.3, Chloride Level 102, Carbon Dioxide Level 25, Anion Gap 12, Blood Urea Nitrogen 21H, Creatinine 0.84, Estimat Glomerular Filtration Rate > 60, BUN/Creatinine Ratio 25, Glucose Level 89, Calcium Level 10.3H, Thyroid Stimulating Hormone (TSH) 1.39 01/13/21 19:55: Total Bilirubin 0.6, Direct Bilirubin 0.2, Indirect Bilirubin 0.4, Aspartate Amino Transf (AST/SGOT) 33, Alanine Aminotransferase (ALT/SGPT) 25, Alkaline Phosphatase 68, Total Protein 8.2, Albumin 4.7H 01/14/21 03:06: White Blood Count 7.5, Red Blood Count 3.84, Hemoglobin 13.2, Hematocrit 38, Mean Corpuscular Volume 100H, Mean Corpuscular Hemoglobin 34, Mean Corpuscular Hemoglobin Concent 34, Red Cell Distribution Width 13.5, Platelet Count 254, Mean Platelet Volume 10.2, Immature Granulocyte % (Auto) 0, Neutrophils (%) (Auto) 58, Lymphocytes (%) (Auto) 26, Monocytes (%) (Auto) 10, Eosinophils (%) (Auto) 5, Basophils (%) (Auto) 1, Neutrophils # (Auto) 4.4, Lymphocytes # (Auto) 1.9, Monocytes # (Auto) 0.8, Eosinophils # (Auto) 0.4H, Basophils # (Auto) 0.0, Immature Granulocyte # (Auto) 0.0, Sodium Level 141, Potassium Level 3.6, Chloride Level 106, Carbon Dioxide Level 22, Anion Gap 13, Blood Urea Nitrogen 16, Creatinine 0.78, Estimat Glomerular Filtration Rate > 60, BUN/Creatinine Ratio 21, Glucose Level 95, Calcium Level 9.7, Phosphorus Level 3.2, Magnesium Level 2.2 Physical Exam Physical Exam Vital Signs Vital Signs - First Documented 01/13/21 17:24 Temp 36.7 Pulse 101 Resp 18 B/P (MAP) 152/80 (104) O2 Delivery Room Air Capillary Refill : Less Than 3 Seconds Height, Weight, BMI Height: 5'5.00" Weight: 152lbs. 0.0oz. 68.771589nz; 29.05 BMI Method:Stated General Appearance: No Apparent Distress, WD/WN Eyes: Bilateral Eye Normal Inspection, Bilateral Eye PERRL, Bilateral Eye EOMI HEENT: PERRL/EOMI Neck: Full Range of Motion, Normal Inspection, Non Tender, Supple, Carotid Bruit Respiratory: Lungs Clear, Normal Breath Sounds Cardiovascular: Regular Rate, Rhythm, No JVD, Systolic Murmur Gastrointestinal: Non Tender, Soft Back: Normal Inspection, No CVA Tenderness, No Vertebral Tenderness Extremity: Normal Inspection, Normal Range of Motion, Non Tender Neurologic/Psychiatric: Alert, No Motor/Sensory Deficits, Normal Mood/Affect Skin: Normal Color, Warm/Dry Lymphatic: No Adenopathy A/P-Cardiology Admission Diagnosis SSS/PAF CAD HTN HLP Assessment/Plan SSS/Paroxysmal atrial fibrillation with history of rapid ventricular rate. Having tachybrady episodes with multiple pauses. Has been having significant dizziness and lightheadedness. Atenolol and Norvasc was discontinued. Maintained on flecainide. Discussed the management plan with patient and her , planning for dual chamber PPM tomorrow. Coronary artery disease, nonobstructive disease per cardiac catheterization done March 22, 2017, had a stress test done in December 2019 showing breast attenuation with no significant ischemia or infarction, EF 79 percent Echocardiogram done in December 2019 showing normal LV size, EF 55-65 percent, moderate mitral regurgitation, mild aortic valve stenosis, gradient at peak 60 mmHg, mean 7 mmHg valve area 1.65 cm, PA pressure 30-35 mmHg. Continue to monitor [id number] score is 3, yearly risk of stroke without oral anticoagulation is 3.2 percent, maintained on Eliquis 5 mg twice daily. Continue current medications and monitor. Peripheral edema, reporting improvement. Continue to monitor. Hypertension, continue to monitor blood pressure. Hyperlipidemia, lipid profile was done on July 08, 2020 showing total cholesterol 174, triglyceride 121, continue to monitor no changes are recommended Hypothyroidism, followed and managed by primary care physician. Osteoarthritis, currently asymptomatic. Anxiety, managed by primary care physician. Carotid artery stenosis-last carotid duplex done in August 2020. Dementia Thank you for allowing to participate in the management of Ms. Payne. This is Yuridia Cole PA-C, as a scribe for Dr. Mcfarland. this is Dr. Mcfarland, I have seen and evaluated the patient with Yuridia, examined the patient and interviewed her, discussed with Yuridia the management plan and the finding and agree with the current scribed note Patient had multiple episodes of atrial fibrillation alternating with sinus bradycardia and long pauses during the conversion, has been having episode of dizziness and near-syncope I am concerned that she will continue to have tachybradycardia episode, will need to be on beta blockers and have a dual-chamber pacemaker She has underlying dementia which is affecting her stability, discussed the management plan with the test Planning to proceed with the procedure tomorrow. YURIDIA SEGOVIA Jan 14, 2021 09:47 THERON MCFARLAND MD Jan 14, 2021 10:34
[2021-01-14] MEDS ORDERED: LOVA20TA2 PO (10:38)
[2021-01-14] MEDS ORDERED: ACHD5005 PO (10:38)
[2021-01-14] MEDS ORDERED: OMEG-160 PO (10:38)
[2021-01-14] MEDS ORDERED: FOLATE PO (10:38)
[2021-01-14] MEDS ORDERED: ATEN25TA PO (10:38)
[2021-01-14] MEDS ORDERED: APIX5TAB PO (10:38)
[2021-01-14] MEDS ORDERED: FLEC50TA PO (10:38)
[2021-01-14] MEDS ORDERED: LEVO75TA6 PO (10:38)
[2021-01-14] MEDS ORDERED: AMLO-251 PO (10:38)
[2021-01-14] MEDS ORDERED: DICL75TA2 PO (10:38)
--- NOTE | 2021-01-14 10:45 | History & Physical-Hospitalist ---
History of Present Illness HPI/Chief Complaint CC: Bradycardia HPI: This is an 85yo[facility] clinic patient of mine for 17 years who has a h/o chronic AF on OAC and mild dementia who presents to the ER with complaints of dizziness and found to have HR of 30. Cardiology recommended admit and close monitoring and may need pacemaker. She has a h/o difficult to control AF heart rate at time of dx many years ago. Severe back spasms noted during exam and she has follow up appointments at [facility] to manage this. Source: patient, RN/MD, old records Exam Limitations: no limitations Date Seen 01/14/21 Time Seen by a Provider: 10:00 Attending Physician Cheyenne Sanders DO PCP Cheyenne Sanders DO Referring Physician Date of Admission Jan 13, 2021 at 18:00 Home Medications & Allergies Home Medications Reviewed patient Home Medication Reconciliation performed by pharmacy medication reconciliations interactive video technician and/or nursing. Patients Allergies have been reviewed. Allergies Allergies Coded Allergies No Known Drug Allergies (Verified11/21/07) Past Wyeyhqu-Iltonk-Swuzcq Hx Past Med/Social Hx: Reviewed Nursing Past Med/Soc Hx, Reviewed and Corrections made Patient Social History Marrital Status: Employed/Student: retired Alcohol Use: Denies Use Recreational Drug Use: No Smoking Status: Never a Smoker Recent Foreign Travel: No Contact w/other who traveled: No Recent Hopitalizations: No Recent Infectious Disease Expo: No Immunizations Up To Date Tetanus Booster (TDap): Less than 5yrs Pediatric: No Date of Pneumonia Vaccine: Aug 20, 2014 Date of Influenza Vaccine: Oct 20, 2020 Past Medical History Surgeries: Abdominal, Appendectomy, Eye Surgery, Hysterectomy, Oophorectomy, Orthopedic, Thyroidectomy Cardiac: Atrial Fibrillation, High Cholesterol, Hypertension Reproductive: No Sexually Transmitted Disease: No HIV/AIDS: No Female Reproductive Disorders: Denies Musculoskeletal: Arthritis Endocrine: Hypothyroidsim Loss of Vision: Denies Cancer: Skin Psychosocial: Anxiety History of Blood Disorders: No Adverse Reaction to Blood Can: No Family History Patient reports no known family medical history. Review of Systems Constitutional: see HPI, dizziness, malaise, weakness Physical Exam Physical Exam Vital Signs Vital Signs - First Documented 01/13/21 17:24 Temp 36.7 Pulse 101 Resp 18 B/P (MAP) 152/80 (104) O2 Delivery Room Air Capillary Refill : Less Than 3 Seconds Height, Weight, BMI Height: 5'5.00" Weight: 152lbs. 0.0oz. [id number]; 29.05 BMI Method:Stated General Appearance: No Apparent Distress Eyes: Right Eye Normal Inspection, Right Eye PERRL HEENT: PERRL/EOMI, TMs Normal, Normal ENT Inspection, Pharynx Normal, Moist Mucous Membranes Neck: Full Range of Motion, Normal Inspection, Non Tender Respiratory: Chest Non Tender, Lungs Clear, Normal Breath Sounds, No Accessory Muscle Use, No Respiratory Distress Cardiovascular: No Edema, No Gallop, No JVD, No Murmur, Normal Peripheral Pulses, Bradycardia Gastrointestinal: Normal Bowel Sounds, No Organomegaly, No Pulsatile Mass, Non Tender, Soft Back: Normal Inspection, No CVA Tenderness, No Vertebral Tenderness Extremity: Normal Capillary Refill, Normal Inspection, Normal Range of Motion, Non Tender, No Calf Tenderness, No Pedal Edema Neurologic/Psychiatric: Alert, Oriented x3, No Motor/Sensory Deficits, Normal Mood/Affect Skin: Normal Color, Warm/Dry Lymphatic: No Adenopathy Results Results/Procedures Labs Laboratory Tests 01/13/21 17:52 01/14/21 03:06 01/15/21 03:35 Patient resulted labs reviewed. Assessment/Plan Admission Diagnosis Assessment: Symptomatic bradycardia may need pacemaker Chronic AF Hypothyroidism HTN Dementia OA Severe back pain managed by [facility] Plan: Cardiology consultation Appreciate expertise Admission Status: Inpatient Order (span 2 midnights) Reason for Inpatient Admission: severe bradycardia Diagnosis/Problems Diagnosis/Problems (1) Symptomatic bradycardia Status: Acute (2) Hypothyroidism (3) Hypertension (4) Dementia (5) Paroxysmal atrial fibrillation Status: Acute CHEYENNE SANDERS DO Jan 14, 2021 10:45
[2021-01-14] MEDS ORDERED: CYAN5000 SL (10:52)
[2021-01-14] MEDS ORDERED: ACETAMINOPHEN 325 MG TABLET PO PRN (11:45)
[2021-01-14] MEDS: NS IV 1000 ML 1,000 ML IV SCH ×2 (17:42→20:07)
[2021-01-14] MEDS: DONEPEZIL 10 MG (ARICEPT) TAB PO SCH (20:06)
[2021-01-15 03:59] LABS: BASOPHILS % (AUTO) 1 % (0-10); EOSINOPHILS % (AUTO) 0 % (0-10); HEMATOCRIT 36 % (35-52); HEMOGLOBIN 12.3 g/dL (11.5-16.0); LYMPHOCYTES # (AUTO) 1.4 10^3/uL (1.0-4.0); LYMPHOCYTES % (AUTO) 19 % (12-44); MEAN CORPUSCULAR HEMOGLOBIN 35 pg (25-34); MEAN CORPUSCULAR HGB CONC 35 g/dL (32-36); MEAN CORPUSCULAR VOLUME 100 fL (80-99); MEAN PLATELET VOLUME 10.7 fL (9.0-12.2); MONOCYTES # (AUTO) 0.6 10^3/uL (0.0-1.0); MONOCYTES % (AUTO) 7 % (0-12); NEUTROPHILS # (AUTO) 5.7 10^3/uL (1.8-7.8); NEUTROPHILS % (AUTO) 73 % (42-75); PLATELET COUNT 214 10^3/uL (130-400); WHITE BLOOD COUNT 7.7 10^3/uL (4.3-11.0)
[2021-01-15 04:17] LABS: CHLORIDE 105 MMOL/L (98-107); POTASSIUM 4.4 MMOL/L (3.6-5.0); SODIUM 136 MMOL/L (135-145)
[2021-01-15 04:19] LABS: GLUCOSE 92 MG/DL (70-105)
[2021-01-15 04:20] LABS: CARBON DIOXIDE 22 MMOL/L (21-32)
[2021-01-15 04:22] LABS: PHOSPHORUS 3.5 MG/DL (2.3-4.7)
[2021-01-15 04:23] LABS: BUN/CREATININE RATIO 23; CREATININE SERUM 0.71 MG/DL (0.60-1.30); GFR ESTIMATED > 60
[2021-01-15] MEDS: POTASSIUM CL 10MEQ/50ML IVPB 50 ML IV SCH (05:10)
[2021-01-15] MEDS: MAGNESIUM 1 GM/100 ML IVPB 100 ML IV SCH (05:10)
[2021-01-15] MEDS: KCL 20 MEQ TAB (K-DUR) PO SCH (05:11)
--- NOTE | 2021-01-15 05:55 | Pulmonary Progress Note ---
Subjective Time Seen by a Provider: 05:52 Subjective/Events-last exam No complications noted. Sepsis Event Evaluation Height, Weight, BMI Height: 5'5.00" Weight: 152lbs. 0.0oz. 68.086732fx; 29.05 BMI Method:Stated Exam Exam Vital Signs Date Time Temp Pulse Resp B/P (MAP) Pulse Ox O2 Delivery O2 Flow Rate FiO2 01/15/21 05:00 50 15 124/64 (84) 94 Room Air 01/15/21 04:35 94 Room Air 01/15/21 04:00 50 14 111/55 (73) 93 Room Air 01/15/21 03:00 36.0 12 94 Room Air 01/15/21 03:00 54 13 101/61 (74) 94 Room Air 01/15/21 02:00 59 18 103/57 (72) 90 Room Air 01/15/21 01:00 5 01/15/21 01:00 58 9 92/53 (66) 92 Room Air 01/15/21 00:33 94 Room Air 01/14/21 23:00 36.3 01/14/21 23:00 51 17 132/78 (96) 96 Room Air 01/14/21 22:00 17 94 Room Air 01/14/21 22:00 56 16 126/72 (90) 92 Room Air 01/14/21 21:00 54 18 121/62 (81) 90 Room Air 01/14/21 20:00 94 Room Air 01/14/21 20:00 35.9 56 19 127/61 (83) 97 Room Air 01/14/21 19:00 55 12 132/64 (86) 94 Room Air 01/14/21 19:00 65 01/14/21 19:00 35.9 13 96 Room Air 01/14/21 18:00 53 14 90 Room Air 01/14/21 17:00 51 28 176/87 (116) 86 Room Air 01/14/21 16:29 97 Room Air 01/14/21 16:00 49 11 123/63 (83) 99 Room Air 01/14/21 15:00 52 16 100 Room Air 01/14/21 14:00 55 20 144/67 (92) 97 Room Air 01/14/21 13:00 61 01/14/21 13:00 49 16 130/72 (91) 95 Room Air 01/14/21 12:46 97 Room Air 01/14/21 12:00 67 19 164/66 (98) 95 Room Air 01/14/21 11:19 36.5 01/14/21 11:00 54 9 149/75 (99) 97 Room Air 01/14/21 10:00 51 143/78 (99) 97 Room Air 01/14/21 09:00 62 11 111/71 (84) 98 Room Air 01/14/21 08:15 97 Room Air 01/14/21 08:07 36.1 01/14/21 08:00 57 24 145/82 (103) 99 Room Air 01/14/21 07:00 51 20 144/77 (99) 94 Room Air 01/14/21 07:00 54 01/14/21 06:00 52 15 128/62 (84) 95 Room Air I & O 01/15/21 07:00 Intake Total 1230 ml Output Total 1475 ml Balance -245 ml Height & Weight Height: 5'5.00" Weight: 152lbs. 0.0oz. 68.065492nr; 29.05 BMI Method:Stated General Appearance: No Apparent Distress HEENT: PERRL/EOMI, TMs Normal, Normal ENT Inspection, Pharynx Normal, Moist Mucous Membranes Neck: Full Range of Motion, Normal Inspection, Non Tender Respiratory: Chest Non Tender, Lungs Clear, Normal Breath Sounds, No Accessory Muscle Use, No Respiratory Distress Cardiovascular: No Edema, No Gallop, No JVD, No Murmur, Normal Peripheral Pulses, Bradycardia Capillary Refill: Less Than 3 Seconds Extremity: Normal Capillary Refill, Normal Inspection, Normal Range of Motion, Non Tender, No Calf Tenderness, No Pedal Edema Neurologic/Psychiatric: Alert, Oriented x3, No Motor/Sensory Deficits, Normal Mood/Affect Skin: Normal Color, Warm/Dry Lymphatic: No Adenopathy Results Lab Laboratory Tests 01/13/21 17:52 01/14/21 03:06 01/15/21 03:35 Assessment/Plan Assessment/Plan Sick sinus syndrome -Cardiology consulted -Plan for pacer today Advanced dementia with agitation -Start risperdal -PRN Haldol -Currently lives at home PAVEL CANO DO Jan 15, 2021 05:54
[2021-01-15] MEDS: LEVOTHYROXINE 75 MCG (LEVOTHROID) TABLET PO SCH ×2 (05:58→14:06)
[2021-01-15] MEDS ORDERED: ceFAZolin INJECTION 1,000 MG ONE (06:37)
[2021-01-15] MEDS ORDERED: LIDOCAINE 1% INJ 20 ML 20 ML VIAL ONE (06:37)
[2021-01-15] MEDS ORDERED: HEParin (CATH LAB) 1,000 ML IV ONE (06:37)
[2021-01-15] MEDS ORDERED: BACITRACIN INJECTION 50,000 UNIT, SODIUM CHLORIDE 0.9% IRRIGATIO 500 ML IR ONE ×2 (07:00)
[2021-01-15] MEDS ORDERED: ceFAZolin INJECTION 1,000 MG VIAL IV ONE (07:00)
[2021-01-15] MEDS ORDERED: MIDAZOLAM 5 MG/5 ML (VERSED) VIAL ONE (08:24)
[2021-01-15] MEDS ORDERED: fentaNYL INJECTION 100 MCG/2 ML AMP ONE (08:25)
[2021-01-15] MEDS ORDERED: NS (IVPB) 250 ML ONE (08:27)
[2021-01-15] MEDS ORDERED: risperiDONE 0.5 MG (RisperDAL) TABLET PO SCH (09:00)
--- NOTE | 2021-01-15 09:13 | Cardiology Progress Note ---
Subjective Date Seen by Provider: Jan 15, 2021 Time Seen by Provider: 09:12 Subjective/Events-last exam Patient was agitated last night, received Haldol, currently lethargic and sleepy but awake and arousable and agreed to have the procedure done today. Review of Systems General: No Chills, No Night Sweats, No Fatigue, No Malaise, No Appetite, No Other HEENT: No Head Aches, No Visual Changes, No Eye Pain, No Ear Pain, No Dysphasia, No Sinus Congestion, No Post Nasal Drip, No Sore Throat, No Other Pulmonary: No Dyspnea, No Cough, No Pleuritic Chest Pain, No Other Cardiovascular: No: Chest Pain, Palpitations, Orthopnea, Paroxysmal Noc. Dyspnea, Edema, Lt Headedness, Other Objective-Cardiology Exam Last Set of Vital Signs Vital Signs 01/15/21 01/15/21 07:32 07:35 Pulse 64 Resp 14 B/P (MAP) 159/78 (105) Pulse Ox 95 O2 Delivery Room Air Capillary Refill : Less Than 3 Seconds I&O Intake and Output 01/15/21 00:00 Intake Total 1235 ml Output Total 1950 ml Balance -715 ml Intake Oral 1135 ml IV Total 100 ml Output Urine Total 1950 ml General: Alert, Cooperative, Other (confused ) HEENT: Atraumatic, PERRLA Neck: Supple, No JVD, No Thyromegaly Lungs: Clear to Auscultation, Normal Air Movement Heart: Regular Rate, Normal S1, Normal S2, No Murmurs Abdomen: Normal Bowel Sounds, Soft, No Tenderness, No Hepatosplenomegaly, No Masses Extremities: No Clubbing, No Cyanosis, No Edema, Normal Pulses, No Tenderness/Swelling Skin: No Rashes, No Breakdown, No Significant Lesion Neuro: Normal Gait, Normal Speech, Strength at 5/5 X4 Ext, Normal Tone, Sensa tion Intact Psych/Mental Status: Mental Status NL, Mood NL Results Lab Laboratory Tests 01/15/21 03:35 A/P-Cardiology Admission Diagnosis SSS/PAF CAD HTN HLP Assessment/Plan SSS/Paroxysmal atrial fibrillation with history of rapid ventricular rate. Having tachybrady episodes with multiple pauses. Has been having significant dizziness and lightheadedness. Atenolol and Norvasc was discontinued. Maintained on flecainide. Planning for pacemaker implant today Coronary artery disease, nonobstructive disease per cardiac catheterization done March 22, 2017, had a stress test done in December 2019 showing breast attenuation with no significant ischemia or infarction, EF 79 percent Echocardiogram done in December 2019 showing normal LV size, EF 55-65 percent, moderate mitral regurgitation, mild aortic valve stenosis, gradient at peak 60 mmHg, mean 7 mmHg valve area 1.65 cm, PA pressure 30-35 mmHg. Continue to monitor [id number] score is 3, yearly risk of stroke without oral anticoagulation is 3.2 percent, maintained on Eliquis 5 mg twice daily. Continue current medications and monitor. Peripheral edema, reporting improvement. Continue to monitor. Hypertension, continue to monitor blood pressure. Hyperlipidemia, lipid profile was done on July 08, 2020 showing total cholesterol 174, triglyceride 121, continue to monitor no changes are recommended Hypothyroidism, followed and managed by primary care physician. Osteoarthritis, currently asymptomatic. Anxiety, managed by primary care physician. Carotid artery stenosis-last carotid duplex done in August 2020. Dementia THERON BELLA MD Jan 15, 2021 9:13 am
--- NOTE | 2021-01-15 09:14 | Cardiac Procedure Note-CS/ASA ---
Pre-Procedure Note Pre-Op Procedure Note H&P Reviewed The H&P was reviewed, patient examined and no changes noted. Date H&P Reviewed: Jan 15, 2021 Time H&P Reviewed: 09:13 Conscious Sedation Pre-Proced Time 09:13 ASA Score 3 For ASA 3 and 4: Consider anesthesia and medical clearance. Also, for patients with a history of failed moderate sedation consider anesthesia. Airway Lungs Heart ASA score ASA 1: a normal healthy patient ASA 2: a patient with a mild systemic disease (mid diabetes, controlled hypertension, obesity x ASA 3: a patient with a severe systemic disease that limits activity (angina, COPD, prior Myocardial infarction) ASA 4: a patient with an incapacitating disease that is a constant threat to life (CHF, renal failure) ASA 5: a moribund patient not expected to survive 24 hrs. (ruptured aneurysm) ASA 6: a declared brain- patient whose organs are being harvested. For emergent operations, add the letter E after the classification Mallampati Classification Grade 3 Sedation Plan Analgesia, Amnesia, Plan communicated to team members, Discussed options with patient/fam, Discussed risks with patient/fam The patient is an appropriate candidate to undergo the planned procedure, sedation, and anesthesia. The patient immediately re-assessed prior to indication. THERON BELLA MD Jan 15, 2021 9:14 am
[2021-01-15] MEDS ORDERED: NS IV 1000 ML 1,000 ML IV SCH (10:15)
[2021-01-15] MEDS ORDERED: PATIENT MAY USE OWN MEDS, ALL PO SCH (10:15)
--- NOTE | 2021-01-15 10:21 | Permanent Pacemaker Implant ---
Dual Chamber Pacemaker Implant PROCEDURE PHYSICIAN: Theron Mcfarland DUAL CHAMBER PACEMAKER IMPLANTATION: DATE OF PROCEDURE: 01/15/21 INDICATION: Symptomatic bradycardia, sinus node dysfunction PREOPERATIVE DIAGNOSIS: Sinus node dysfunction POSTOPERATIVE DIAGNOSIS: Sinus node dysfunction HISTORY: 85-year-old lady with paroxysmal atrial fibrillation, admitted with episode of dizziness and lightheadedness and episode of atrial fibrillation was rapid ventricular response followed by a long closed 4-5 seconds then sinus bradycardia, had multiple episodes of bradycardia, she will require beta b lockers for her tachycardia episode. Discussion with her and her especially with her underlying dementia, she is able to function at home and live with him independently, he is concerned about her feeling extremely tired and episode of near-syncope, Dual-chamber permanent pacemaker was recommended. PROCEDURE PERFORMED: 1. Dual-chamber permanent pacemaker implantation. 2. Fluoroscopy. 3. Central venous access. ANESTHESIA: Local anesthesia, conscious sedation. COMPLICATIONS: None. ESTIMATED BLOOD LOSS:20 mL. SPECIMENS: None. ORAL ANTICOAGULATION: None. FLUOROSCOPY TIME: FLUOROSCOPY DOSE: CONTRAST DOSE: PROCEDURE DETAILS: The patient is a 85 female and after all of the patients questions were answered, the patient was brought to the EP Lab. The patient's left chest was prepped and draped in sterile fashion. A 2 inch horizontal incision was made 1 cm below the clavicle and dissection carried down to the pectoralis fascia. Using the modified Seldinger technique and under fluoroscopy guidance, the anterior aspect of the left axillary vein was accessed 2 times. The J wires were secured to the drapes with a mosquito clamp. A 7-Yemeni sheath was introduced over one of the J-wires. The RV lead was then inserted. The RV lead was directed across the tricuspid valve to the apical septal portion of the right ventricle. The position was checked in SLOVAK and LAZO views. The screw was deployed and the lead connected to the programmer developer. Close sensing and pacing thresholds were obtained. Diaphragmatic pacing was ruled out. The lead was secured with 2-0 silk ties to the underlying muscle and fascia. Next, a 7-Yemeni sheath was introduced through the remaining J-wire. An atrial lead was then introduced and guided to the level of the right appendage. The screw was deployed and the lead was connected to the interrogator. Good sensing and pacing thresholds were obtained. Diaphragmatic pacing was ruled out. The leads were secured with 2-0 silk ties to the underlying muscle and fascia. The leads were connected to the device in a hermetic fashion. The device and leads were placed in the pocket. Aggressive irrigation with saline solution was done. The device was secured to the underlying muscle and fascia with a 2-0 silk tie. interrogation of the device revealed good integrity of all the leads and good connections. The wound was then closed using 2 layers. The first layer was interrupted 2-0 absorbable Vicryl suture. The last layer was a single subcuticular layer with 4- 0 Vicryl suture. Half inch Steri-Strips and a small dressing were then applied to the wound. The patient tolerated the procedure well and was returned to the recovery room in stable condition with stable vital signs. DEVICE INFORMATION: [id number] RA LEAD: [id number] RV LEAD: [id number] PER-OPERATIVE DEVICE INTERROGATION: Good sensing and capture IMMEDIATE POSTOPERATIVE DEVICE INTERROGATION: Atrial lead P-wave 1.1, pacing impedance 456, pacing threshold 1.25 . Ventricular lead R-wave 13.6, impedance 703, pacing threshold 0.75 at 0.4 PLAN: The patient transferred to the ICU. We will continue with two more doses of IV antibiotics. We will check a chest x-ray and interrogate the device in the morning. The patient will continue on oral antibiotics for 5 days. CONCLUSION: Successful implantation of dual-chamber pacemaker with no complication THERON MCFARLAND MD Jan 15, 2021 10:21 am
--- NOTE | 2021-01-15 10:57 | Diagnostic Imaging Report ---
INDICATION: Pacemaker placement. TIME OF EXAM: 10:27 AM Correlation is made with prior chest from one day earlier. FINDINGS: Cardiac pacemaker has been placed and has the lead tips in the region right atrium and right ventricle. No pneumothorax is identified. Lungs are clear. IMPRESSION: Pacemaker placement, as described. Dictated by: Dictated on workstation # [id number]
--- NOTE | 2021-01-15 11:51 | Progress Note - Hospitalist ---
Subjective HPI/CC On Admission Date Seen by Provider: Jan 15, 2021 Time Seen by Provider: 10:30 CC: Bradycardia HPI: This is an 85yoWF clinic patient of mine for 17 years who has a h/o chronic AF on OAC and mild dementia who presents to the ER with complaints of dizziness and found to have HR of 30. Cardiology recommended admit and close monitoring and may need pacemaker. She has a h/o difficult to control AF heart rate at time of dx many years ago. Severe back spasms noted during exam and she has follow up appointments at ortho [facility] to manage this. Subjective/Events-last exam Pacemaker placement Drowsy Haldol and Ativan given for last night Objective Exam Vital Signs Vital Signs Date Time Temp Pulse Resp B/P (MAP) Pulse Ox O2 Delivery O2 Flow Rate FiO2 01/16/21 06:00 61 12 123/62 (82) 92 Room Air 01/16/21 03:55 36.7 01/15/21 12:00 2.00 Capillary Refill : Less Than 3 Seconds General Appearance: No Apparent Distress, WD/WN, Chronically ill Respiratory: Chest Non Tender, Lungs Clear, Normal Breath Sounds, No Accessory Muscle Use, No Respiratory Distress Cardiovascular: Regular Rate, Rhythm, No Edema, No Gallop, No JVD, No Murmur, Normal Peripheral Pulses Results/Procedures Lab Laboratory Tests 01/16/21 02:18 Patient resulted labs reviewed. Assessment/Plan Assessment and Plan Assess & Plan/Chief Complaint Assessment: Symptomatic bradycardia s/p pacemaker 01/15/21 Chronic AF Hypothyroidism HTN Dementia OA Severe back pain managed by [facility] Plan: Cardiology consultation Appreciate expertise 01/15/21: s/p pacemaker [facility] Diagnosis/Problems Diagnosis/Problems (1) Symptomatic bradycardia Status: Acute (2) Hypothyroidism (3) Hypertension (4) Dementia (5) Paroxysmal atrial fibrillation Status: Acute ERIC GROSS DO Jan 15, 2021 11:51
[2021-01-15] MEDS: ceFAZolin INJECTION 1,000 MG in WATER (STERILE) FOR INJECTION 10 ML IV SCH ×2 (14:04→22:00)
[2021-01-15] MEDS: risperiDONE 1 MG (RisperDAL) TAB PO SCH ×2 (14:05→20:08)
[2021-01-15] MEDS: HYDROcodone/APAP 5 MG/325 MG (LORTAB) TAB PO PRN ×2 (14:05→19:32)
[2021-01-15] MEDS: SENNA W/DOCUSATE (SENOKOT S) TABLET PO SCH ×2 (14:05→20:08)
[2021-01-15] MEDS: HALOPERIDOL 5 MG/ML (HALDOL) VIAL IM PRN ×2 (18:00→22:43)
[2021-01-15] MEDS: DONEPEZIL 10 MG (ARICEPT) TAB PO SCH (20:08)
[2021-01-16 03:03] LABS: BASOPHILS % (AUTO) 1 % (0-10); EOSINOPHILS # (AUTO) 0.1 10^3/uL (0.0-0.3); EOSINOPHILS % (AUTO) 1 % (0-10); HEMATOCRIT 33 % (35-52); HEMOGLOBIN 11.4 g/dL (11.5-16.0); LYMPHOCYTES # (AUTO) 1.4 10^3/uL (1.0-4.0); LYMPHOCYTES % (AUTO) 20 % (12-44); MEAN CORPUSCULAR HEMOGLOBIN 34 pg (25-34); MEAN CORPUSCULAR HGB CONC 34 g/dL (32-36); MEAN CORPUSCULAR VOLUME 100 fL (80-99); MEAN PLATELET VOLUME 10.5 fL (9.0-12.2); MONOCYTES # (AUTO) 0.8 10^3/uL (0.0-1.0); MONOCYTES % (AUTO) 11 % (0-12); NEUTROPHILS # (AUTO) 4.9 10^3/uL (1.8-7.8); NEUTROPHILS % (AUTO) 68 % (42-75); PLATELET COUNT 208 10^3/uL (130-400); WHITE BLOOD COUNT 7.2 10^3/uL (4.3-11.0)
[2021-01-16 03:14] LABS: ALBUMIN 3.6 GM/DL (3.2-4.5); CHLORIDE 105 MMOL/L (98-107); POTASSIUM 3.4 MMOL/L (3.6-5.0); SODIUM 137 MMOL/L (135-145)
[2021-01-16 03:15] LABS: CALCIUM 8.6 MG/DL (8.5-10.1)
[2021-01-16 03:16] LABS: GLUCOSE 95 MG/DL (70-105); TOTAL PROTEIN 6.3 GM/DL (6.4-8.2)
[2021-01-16 03:17] LABS: CARBON DIOXIDE 20 MMOL/L (21-32)
[2021-01-16 03:18] LABS: BILIRUBIN,TOTAL 0.6 MG/DL (0.1-1.0)
[2021-01-16 03:20] LABS: ALKALINE PHOSPHATASE 51 U/L (40-136); CREATININE SERUM 0.68 MG/DL (0.60-1.30); GFR ESTIMATED > 60; PHOSPHORUS 3.2 MG/DL (2.3-4.7)
[2021-01-16 03:21] LABS: BUN/CREATININE RATIO 19
[2021-01-16 03:23] LABS: ALANINE AMINOTRANSFERASE 21 U/L (0-55); MAGNESIUM 1.9 MG/DL (1.6-2.4)
[2021-01-16] MEDS: MAGNESIUM 1 GM/100 ML IVPB 100 ML IV SCH (05:58)
[2021-01-16] MEDS: POTASSIUM CL 10MEQ/50ML IVPB 50 ML IV SCH (05:58)
[2021-01-16] MEDS: ceFAZolin INJECTION 1,000 MG in WATER (STERILE) FOR INJECTION 10 ML IV SCH (06:00)
[2021-01-16] MEDS: KCL 20 MEQ TAB (K-DUR) PO SCH (06:29)
[2021-01-16] MEDS ORDERED: KCL 20 MEQ TAB (K-DUR) PO ONE (06:30)
--- NOTE | 2021-01-16 07:08 | Discharge Inst-Post CATH ---
Discharge Inst-CATH/EP Problems Reviewed?: Yes Post Cardiac Cath/EP D/C Inst Follow Up/Plan Appointment with Dr Mcfarland in one week <b>CARDIAC CATH/EP PROCEDURE DISCHARGE INSTRUCTIONS</b> ACTIVITY * Go Home directly and rest. * Limit activity of the leg (or wrist if it was used) for 7 days including aerobics, swimming, jogging, bicycling, etc. * Restrict stair-climbing for 7 days if possible, if not, climb up with your non-cath leg, then bring together on the same step. * Avoid lifting, pushing, pulling or excessive movement of the affected extremity for 7 days. * Customary sexual activity may be resumed after 2 days-use caution not to use a position that strains or causes pain to the affected extremity. * No driving for 24 hours. * NO SMOKING. * Avoid straining for bowel movements for 7 days. * Gentle walking on level ground is allowed. * Returning to work will depend on the type of procedure and the results. Your doctor will discuss this with you. CALL YOUR DOCTOR FOR ANY OF THE FOLLOWING: *If bleeding from the puncture site occurs- Apply gentle pressure to site with clean cloth and call your doctor or EMS. * If a knot or lump forms under the skin, increases in size, or causes pain. * If bruising appears to be worsening or moving further down your leg instead of disappearing. * Temperature above 101 F. CARE OF YOUR GROIN INCISION; * Bruising or purple discoloration of the skin near the puncture site is common. * You may shower only, no bathtub bathing for 5 days. Be careful to avoid slipping as your leg may feel stiff. * If a closure device was used on your femoral artery, please see the attached guide regarding care of the device and your leg. * Leave dressing on FOR 24 hours. CARE OF YOUR WRIST INCISION; * Bruising or purple discoloration of the skin near the puncture site is common. * You may shower. * DO NOT submerge wrist. * Leave dressing on FOR 24 hours. THERON MCFARLAND MD Jan 16, 2021 07:08
[2021-01-16] MEDS ORDERED: CEFU500T63 PO (07:09)
[2021-01-16] MEDS: risperiDONE 1 MG (RisperDAL) TAB PO SCH (08:39)
[2021-01-16] MEDS: SENNA W/DOCUSATE (SENOKOT S) TABLET PO SCH (08:39)
--- NOTE | 2021-01-16 09:27 | Cardiology Progress Note ---
Subjective Date Seen by Provider: Jan 16, 2021 Time Seen by Provider: 09:26 Subjective/Events-last exam Patient was seen at bedside, sitting comfortably, denied any discomfort, site is healing well Review of Systems General: No Chills, No Night Sweats, No Fatigue, No Malaise, No Appetite, No Other HEENT: No Head Aches, No Visual Changes, No Eye Pain, No Ear Pain, No Dysphasia, No Sinus Congestion, No Post Nasal Drip, No Sore Throat, No Other Pulmonary: No Dyspnea, No Cough, No Pleuritic Chest Pain, No Other Cardiovascular: No: Chest Pain, Palpitations, Orthopnea, Paroxysmal Noc. Dyspnea, Edema, Lt Headedness, Other Objective-Cardiology Exam Last Set of Vital Signs Vital Signs 01/15/21 01/16/21 01/16/21 12:00 07:26 09:00 Temp 36.9 Pulse 72 Resp 17 B/P (MAP) 122/62 (82) Pulse Ox 95 O2 Delivery Room Air O2 Flow Rate 2.00 Capillary Refill : Less Than 3 Seconds I&O Intake and Output 01/16/21 00:00 Intake Total 920 ml Output Total 750 ml Balance 170 ml Intake Oral 920 ml Output Urine Total 750 ml # Voids 2 General: Alert, Cooperative, Other (confused ) HEENT: Atraumatic, PERRLA Neck: Supple, No JVD, No Thyromegaly Lungs: Clear to Auscultation, Normal Air Movement Heart: Regular Rate, Normal S1, Normal S2, No Murmurs Abdomen: Normal Bowel Sounds, Soft, No Tenderness, No Hepatosplenomegaly, No Masses Extremities: No Clubbing, No Cyanosis, No Edema, Normal Pulses, No Tendern ess/Swelling Skin: No Rashes, No Breakdown, No Significant Lesion Neuro: Normal Gait, Normal Speech, Strength at 5/5 X4 Ext, Normal Tone, Sensation Intact Psych/Mental Status: Mental Status NL, Mood NL Results Lab Laboratory Tests 01/16/21 02:18 A/P-Cardiology Admission Diagnosis SSS/PAF CAD HTN HLP Assessment/Plan SSS/Paroxysmal atrial fibrillation with history of rapid ventricular rate. Having tachybrady episodes with multiple pauses. Has been having significant dizziness and lightheadedness. Test post dual-chamber pacemaker implantation, maintained on flecainide, I restarted atenolol, discontinue amlodipine for now Coronary artery disease, nonobstructive disease per cardiac catheterization done March 22, 2017, had a stress test done in December 2019 showing breast attenuation with no significant ischemia or infarction, EF 79 percent Echocardiogram done in December 2019 showing normal LV size, EF 55-65 percent, moderate mitral regurgitation, mild aortic valve stenosis, gradient at peak 60 mmHg, mean 7 mmHg valve area 1.65 cm, PA pressure 30-35 mmHg. Continue to monitor [id number] score is 3, yearly risk of stroke without oral anticoagulation is 3.2 percent, maintained on Eliquis 5 mg twice daily. Continue current me dications and monitor. Peripheral edema, reporting improvement. Continue to monitor. Hypertension, continue to monitor blood pressure. Hyperlipidemia, lipid profile was done on July 08, 2020 showing total cholesterol 174, triglyceride 121, continue to monitor no changes are recommended Hypothyroidism, followed and managed by primary care physician. Osteoarthritis, currently asymptomatic. Anxiety, managed by primary care physician. Carotid artery stenosis-last carotid duplex done in August 2020. Dementia Opiate for discharge from cardiology standpoint and follow up with my office next week THERON BELLA MD Jan 16, 2021 9:27 am
--- NOTE | 2021-01-16 11:27 | Discharge Summary ---
Discharge Summary Hospital Course Was the Problem List Reviewed?: Yes Problems/Dx: (1) Symptomatic bradycardia Status: Acute (2) Hypothyroidism (3) Hypertension (4) Dementia (5) Paroxysmal atrial fibrillation Status: Acute Hospital Course Date of Admission: Jan 13, 2021 at 18:00 Admission Diagnosis : Family Physician/Provider: Cheyenne Sanders DO Date of Discharge: 01/16/21 Discharge Diagnosis: Severe and symptomatic bradycardia requiring pacemaker Hospital Course: Brief course after admitted for symptomatic bradycardia she was placed in ICU and monitored closely. Dr Mcfarland placed pacemaker and monitored closely. She had sundowning from dementia issues requiring antipsychotics for agitation. She was lucid and ready for DC with her . Labs and Pending Lab Test: Laboratory Tests 01/16/21 02:18: White Blood Count 7.2, Red Blood Count 3.32L, Hemoglobin 11.4L, Hematocrit 33L, Mean Corpuscular Volume 100H, Mean Corpuscular Hemoglobin 34, Mean Corpuscular Hemoglobin Concent 34, Red Cell Distribution Width 13.5, Platelet Count 208, Mean Platelet Volume 10.5, Immature Granulocyte % (Auto) 0, Neutrophils (%) (Auto) 68, Lymphocytes (%) (Auto) 20, Monocytes (%) (Auto) 11, Eosinophils (%) (Auto) 1, Basophils (%) (Auto) 1, Neutrophils # (Auto) 4.9, Lymphocytes # (Auto) 1.4, Monocytes # (Auto) 0.8, Eosinophils # (Auto) 0.1, Basophils # (Auto) 0.0, Immature Granulocyte # (Auto) 0.0, Sodium Level 137, Potassium Level 3.4L, Chloride Level 105, Carbon Dioxide Level 20L, Anion Gap 12, Blood Urea Nitrogen 13, Creatinine 0.68, Estimat Glomerular Filtration Rate > 60, BUN/Creatinine Ratio 19, Glucose Level 95, Calcium Level 8.6, Corrected Calcium 8.9, Phosphorus Level 3.2, Magnesium Level 1.9, Total Bilirubin 0.6, Aspartate Amino Transf (AST/SGOT) 29, Alanine Aminotransferase (ALT/SGPT) 21, Alkaline Phosphatase 51, Total Protein 6.3L, Albumin 3.6 Microbiology 01/13/21 MRSA Screen - Final, Complete MRSA not isolated Home Meds Active Cefuroxime (Cefuroxime Axetil) 500 Mg Tablet 500 Mg PO BID Reported Vitamin B-12 (Cyanocobalamin (Vitamin B-12)) 5,000 Mcg Tab.subl 5,000 Mcg SL DAILY Fish Oil 1,000 mg Softgel ([place]-3/Dha/Epa/Fish Oil) 1 Each Capsule 1 Each PO 0600,2200 [Folate] 13,33/,800 Tab 1 Tab PO HS FOLATE. 1333MCG DFE AND 800 MCG FOLIC ACID Amlodipine Besylate 10 Mg Tablet 5 Mg PO 0900 TAKES OF A 10MG TAB Levothyroxine Sodium 75 Mcg Tablet 75 Mcg PO 0600 Lovastatin 20 Mg Tablet 20 Mg PO 0900 Diclofenac Sodium 75 Mg Tablet.dr 75 Mg PO 0900,2100 Atenolol 25 Mg Tablet 50 Mg PO 0900 TAKES 2 (25MG) TABS Flecainide Acetate 50 Mg Tablet 50 Mg PO 0600,1400,2200 Eliquis (Apixaban) 5 Mg Tablet 5 Mg PO BID Hydrocodone-Acetamin 5-325 mg (Hydrocodone/Acetaminophen) 1 Each Tablet 1 Ea PO BID PRN Donepezil HCl 10 Mg Tablet 10 Mg PO 2200 Assessment/Pt Instructions Dr Sanders this week Discharge Planning: <30 minutes discharge planning Discharge Instructions Discharge Diet: No Restrictions Activity as Tolerated: Yes Discharge Physical Examination Vital Signs Vital Signs Date Time Temp Pulse Resp B/P (MAP) Pulse Ox O2 Delivery O2 Flow Rate FiO2 01/16/21 11:00 84 24 154/79 (104) 94 Room Air 01/16/21 07:26 36.9 01/15/21 12:00 2.00 General Appearance: No Apparent Distress, WD/WN Respiratory: Chest Non Tender, Lungs Clear, Normal Breath Sounds, No Accessory Muscle Use, No Respiratory Distress Cardiovascular: Regular Rate, Rhythm, No Edema, No Gallop, No JVD, No Murmur, Normal Peripheral Pulses Neurologic/Psychiatric: Alert, Oriented x3, No Motor/Sensory Deficits, Normal Mood/Affect Allergies: Coded Allergies: No Known Drug Allergies (Verified , 11/21/07) Discharge Summary Date of Admission Jan 13, 2021 at 18:00 Date of Discharge Discharge Date: Jan 16, 2021 Admission Diagnosis Assessment: Symptomatic bradycardia may need pacemaker Chronic AF Hypothyroidism HTN Dementia OA Severe back pain managed by Ortho 4 states Plan: Cardiology consultation Appreciate expertise Discharge Diagnosis Assessment: Symptomatic bradycardia s/p pacemaker 01/15/21 Chronic AF Hypothyroidism HTN Dementia OA Severe back pain managed by Ortho 4 states Plan: Cardiology consultation Appreciate expertise 01/15/21: s/p pacemaker Sundowning meds (1) Symptomatic bradycardia Status: Acute (2) Hypothyroidism (3) Hypertension (4) Dementia (5) Paroxysmal atrial fibrillation Status: Acute CHEYENNE SANDERS DO Jan 16, 2021 11:27
== END 2021-01-16 12:47 | disposition home or self-care (01) | DRG 243 ==
LOC: EDUNIT# 17:03 → ER 17:05 → ICU 18:00
PROVIDERS: ADMIT Internal Medicine; ATTEND Internal Medicine
PROC: 0JH606Z Insertion of Pacemaker, Dual Chamber into Chest Subcutaneous Tissue and Fascia, Open Approach (ICD-10-PCS; principal; 2021-01-15)
PROC: 02H63JZ Insertion of Pacemaker Lead into Right Atrium, Percutaneous Approach (ICD-10-PCS; 2021-01-15)
PROC: 02HK3JZ Insertion of Pacemaker Lead into Right Ventricle, Percutaneous Approach (ICD-10-PCS; 2021-01-15)
DX: I49.5 Sick sinus syndrome (principal); I48.20 Chronic atrial fibrillation, unspecified; J81.1 Chronic pulmonary edema; F03.90 Unspecified dementia, unspecified severity, without behavioral disturbance, psychotic disturbance, mood disturbance, and anxiety; E78.00 Pure hypercholesterolemia, unspecified; I10 Essential (primary) hypertension; Z20.822 Contact with and (suspected) exposure to COVID-19; M19.90 Unspecified osteoarthritis, unspecified site; E03.9 Hypothyroidism, unspecified; F41.9 Anxiety disorder, unspecified; M54.9 Dorsalgia, unspecified; I25.10 Atherosclerotic heart disease of native coronary artery without angina pectoris; Z90.49 Acquired absence of other specified parts of digestive tract
CPT/HCPCS: 33208; 36415; 71045; 80048; 80053; 80076; 83735; 84100; 84443; 85025; 85610; 85730; 87081; 87635; 93005; 93306

== ENCOUNTER 2021-01-21 16:19 | Observation (INO) | payer MEDICARE, OTHER ==
[~2021-01-21] VITALS: Ht 165.1 cm; Wt 70.6 kg
[~2021-01-21 16:19] MED LIST changes: +ACHD5005 PO; +AMLO-251 PO; +APIX5TAB PO; +ATEN25TA PO; +CEFU500T63 PO; +CYAN5000 SL; +DONE10TA41 PO; +FLEC50TA PO; +FOLATE PO; +LEVO75TA6 PO; +OMEG-160 PO
[2021-01-21] MEDS: NS IV 1000 ML 1,000 ML IV SCH (16:57)
[2021-01-21 17:16] LABS: BASOPHILS % (AUTO) 1 % (0-10); EOSINOPHILS # (AUTO) 0.5 10^3/uL (0.0-0.3); EOSINOPHILS % (AUTO) 6 % (0-10); HEMATOCRIT 34 % (35-52); HEMOGLOBIN 11.5 g/dL (11.5-16.0); LYMPHOCYTES # (AUTO) 1.6 10^3/uL (1.0-4.0); LYMPHOCYTES % (AUTO) 23 % (12-44); MEAN CORPUSCULAR HEMOGLOBIN 34 pg (25-34); MEAN CORPUSCULAR HGB CONC 34 g/dL (32-36); MEAN CORPUSCULAR VOLUME 100 fL (80-99); MEAN PLATELET VOLUME 9.9 fL (9.0-12.2); MONOCYTES # (AUTO) 0.9 10^3/uL (0.0-1.0); MONOCYTES % (AUTO) 13 % (0-12); NEUTROPHILS # (AUTO) 3.9 10^3/uL (1.8-7.8); NEUTROPHILS % (AUTO) 56 % (42-75); PLATELET COUNT 276 10^3/uL (130-400)
[2021-01-21 17:17] VITALS: BP 154/75
[2021-01-21 17:30] LABS: ALBUMIN 3.9 GM/DL (3.2-4.5)
[2021-01-21 17:31] LABS: CHLORIDE 102 MMOL/L (98-107); POTASSIUM 3.4 MMOL/L (3.6-5.0); SODIUM 139 MMOL/L (135-145)
[2021-01-21 17:32] LABS: CALCIUM 9.7 MG/DL (8.5-10.1)
[2021-01-21 17:33] LABS: GLUCOSE 102 MG/DL (70-105); TOTAL PROTEIN 6.9 GM/DL (6.4-8.2)
[2021-01-21 17:34] LABS: CARBON DIOXIDE 27 MMOL/L (21-32)
[2021-01-21 17:35] LABS: BILIRUBIN,TOTAL 0.8 MG/DL (0.1-1.0)
[2021-01-21 17:36] LABS: ALKALINE PHOSPHATASE 62 U/L (40-136)
[2021-01-21 17:37] LABS: CREATININE SERUM 0.73 MG/DL (0.60-1.30); GFR ESTIMATED > 60
[2021-01-21 17:38] LABS: BUN/CREATININE RATIO 15
[2021-01-21 17:40] LABS: ALANINE AMINOTRANSFERASE 20 U/L (0-55)
--- NOTE | 2021-01-21 17:41 | Diagnostic Imaging Report ---
PROCEDURE: CT head without contrast. TECHNIQUE: Multiple contiguous axial images were obtained through the brain without the use of intravenous contrast. Auto Exposure Controls were utilized during the CT exam to meet ALARA standards for radiation dose reduction. INDICATION: Confusion, altered mental status COMPARISON: None FINDINGS: The ventricles and cortical sulci are prominent. There is no midline shift or mass effect identified. No acute intracranial hemorrhage is seen. Areas of decreased attenuation are seen in the subcortical and periventricular white matter. These likely represent chronic microvascular disease. No CT evidence of acute territorial ischemia is seen. The calvarium is intact. There is hyperostosis frontalis. The paranasal sinuses appear clear. IMPRESSION: 1. No acute intracranial hemorrhage. No CT evidence of acute territorial ischemia. 2. Generalized parenchymal volume loss and findings of chronic microvascular disease. Dictated by: Dictated on workstation # [id number]
--- NOTE | 2021-01-21 17:42 | Diagnostic Imaging Report ---
Indication: Confusion, cardiac pacemaker Comparison: 01/15/2021 Findings: Single view of the chest demonstrates cardiac enlargement with resolved interstitial infiltrates. There is a new and/or increasing small effusion of the left lung base with dependent atelectasis. There is no pneumothorax. Pacemaker stable. Osseous structures are age-appropriate. Impression: 1. Increasing and/or new left-sided effusion with dependent atelectasis, 2. Stable cardiac enlargement with resolved interstitial infiltrates. Dictated by: Dictated on workstation # [id number]
[2021-01-21] MEDS ORDERED: PATIENT MAY USE OWN MEDS, ALL MC SCH (18:45)
[2021-01-21] MEDS ORDERED: HYDROcodone/APAP 5 MG/325 MG (LORTAB) TAB PO PRN (19:00)
[2021-01-21 19:13] VITALS: BP 147/73
[2021-01-21] MEDS ORDERED: HALOPERIDOL 5 MG/ML (HALDOL) VIAL IM PRN (19:15)
[2021-01-21] MEDS ORDERED: LORazepam INJ 2 MG/ML (ATIVAN) VIAL IVP PRN (19:15)
[2021-01-21] MEDS ORDERED: ZIPRASIDONE 20 MG INJ (GEODON) VIAL IM PRN (19:15)
[2021-01-21 19:18] LABS: BILIRUBIN,URINE NEGATIVE (NEGATIVE); CLARITY,URINE SL CLOUDY; COLOR,URINE YELLOW; GLUCOSE, URINE (UA) NEGATIVE (NEGATIVE); KETONES,URINE NEGATIVE (NEGATIVE); LEUKOCYTE ESTERASE ,URINE TRACE (NEGATIVE); NITRITE,URINE NEGATIVE (NEGATIVE); PROTEIN,URINE NEGATIVE (NEGATIVE)
[2021-01-21] MEDS ORDERED: KCL 10 MEQ TAB (MICRO K) PO NR (19:30)
[2021-01-21 19:40] LABS: BACTERIA,URINE TRACE /HPF; WBC,URINE 0-2 /HPF
[2021-01-21] MEDS: APIXABAN 5 MG (ELIQUIS) TABLET PO SCH (20:02)
[2021-01-21] MEDS: FLECAINIDE 50 MG TAB PO SCH (20:03)
[2021-01-21] MEDS: HYDROcodone/APAP 5 MG/325 MG (LORTAB) TAB PO PRN (20:06)
[2021-01-21] MEDS: OLANZapine 5 MG (ZyPREXA) TAB PO SCH (21:23)
[2021-01-21] MEDS ORDERED: DONEPEZIL 10 MG (ARICEPT) TAB PO SCH (22:00)
[2021-01-21] MEDS ORDERED: NON-FORMULARY MEDICATION 1 EA EA (Flecainide Acetate 50 MG) PO SCH (22:00)
[2021-01-21] MEDS ORDERED: FLECAINIDE 100 MG (TAMBOCOR) TAB PO SCH ×2 (22:00)
[2021-01-21 23:48] VITALS: BP 173/75
[2021-01-22 04:00] VITALS: BP 167/77
[2021-01-22] MEDS: LEVOTHYROXINE 75 MCG (LEVOTHROID) TABLET PO SCH (05:12)
[2021-01-22] MEDS: FLECAINIDE 50 MG TAB PO SCH ×3 (05:12→20:23)
[2021-01-22] MEDS: CYANOCOBALAMIN 1,000 MCG (VITAMIN B-12) TABLET PO SCH (05:12)
[2021-01-22 05:36] LABS: BASOPHILS # (AUTO) 0.1 10^3/uL (0.0-0.1); BASOPHILS % (AUTO) 1 % (0-10); EOSINOPHILS # (AUTO) 0.6 10^3/uL (0.0-0.3); EOSINOPHILS % (AUTO) 10 % (0-10); HEMATOCRIT 31 % (35-52); HEMOGLOBIN 10.4 g/dL (11.5-16.0); LYMPHOCYTES % (AUTO) 32 % (12-44); MEAN CORPUSCULAR HEMOGLOBIN 34 pg (25-34); MEAN CORPUSCULAR HGB CONC 34 g/dL (32-36); MEAN CORPUSCULAR VOLUME 100 fL (80-99); MEAN PLATELET VOLUME 9.6 fL (9.0-12.2); MONOCYTES # (AUTO) 0.8 10^3/uL (0.0-1.0); MONOCYTES % (AUTO) 13 % (0-12); NEUTROPHILS # (AUTO) 2.8 10^3/uL (1.8-7.8); NEUTROPHILS % (AUTO) 44 % (42-75); PLATELET COUNT 273 10^3/uL (130-400); WHITE BLOOD COUNT 6.3 10^3/uL (4.3-11.0)
[2021-01-22 05:41] LABS: ALBUMIN 3.4 GM/DL (3.2-4.5)
[2021-01-22 05:42] LABS: CHLORIDE 105 MMOL/L (98-107); POTASSIUM 3.3 MMOL/L (3.6-5.0); SODIUM 142 MMOL/L (135-145)
[2021-01-22 05:43] LABS: CALCIUM 8.8 MG/DL (8.5-10.1)
[2021-01-22 05:44] LABS: GLUCOSE 90 MG/DL (70-105)
[2021-01-22 05:45] LABS: CARBON DIOXIDE 28 MMOL/L (21-32)
[2021-01-22 05:46] LABS: BILIRUBIN,TOTAL 0.7 MG/DL (0.1-1.0)
[2021-01-22 05:47] LABS: ALKALINE PHOSPHATASE 53 U/L (40-136)
[2021-01-22 05:48] LABS: CREATININE SERUM 0.66 MG/DL (0.60-1.30); GFR ESTIMATED > 60
[2021-01-22 05:49] LABS: BUN/CREATININE RATIO 14
[2021-01-22 05:51] LABS: ALANINE AMINOTRANSFERASE 17 U/L (0-55)
[2021-01-22] MEDS: NS IV 1000 ML 1,000 ML IV SCH ×2 (06:35→21:28)
[2021-01-22] MEDS: KCL 10 MEQ TAB (MICRO K) PO SCH (06:39)
[2021-01-22 08:00] VITALS: BP 155/76
[2021-01-22] MEDS: DICLOFENAC SOD 75 MG (VOLTAREN) TAB NON-FORMULARY PO SCH ×2 (08:21→18:21)
[2021-01-22] MEDS: APIXABAN 5 MG (ELIQUIS) TABLET PO SCH ×2 (08:22→20:24)
[2021-01-22] MEDS: LOVASTATIN 20 MG TAB PO SCH (08:23)
[2021-01-22] MEDS: amLODIPine 5 MG (NORVASC) TAB PO SCH (08:43)
[2021-01-22] MEDS: OLANZapine 5 MG (ZyPREXA) TAB PO SCH (08:43)
[2021-01-22] MEDS: ATENOLOL 25 MG (TENORMIN) TAB PO SCH (08:43)
[2021-01-22] MEDS: HYDROcodone/APAP 5 MG/325 MG (LORTAB) TAB PO PRN (08:45)
[2021-01-22] MEDS ORDERED: NON-FORMULARY MEDICATION 1 EA EA (Lovastatin 20 MG) PO SCH (09:00)
[2021-01-22] MEDS ORDERED: NON-FORMULARY MEDICATION 1 EA EA (Cyanocobalamin (Vitamin B-12) (Vitamin B-12) 5,000 MCG) SL SCH (09:00)
[2021-01-22] MEDS ORDERED: SIMvastatin 10 MG (ZOCOR) TAB PO SCH (09:00)
[2021-01-22] MEDS ORDERED: amLODIPine 10 MG (NORVASC) TAB PO SCH (09:00)
[2021-01-22] MEDS ORDERED: CEFU500T63 PO (10:41)
[2021-01-22 12:00] VITALS: BP 148/75
--- NOTE | 2021-01-22 12:14 | Short Stay Summary ---
ERIC,Y[facility] 01/22/21 1214: History of Present Illness History of Present Illness Reason for visit/HPI Janny Pyane is a 85 y/o female that was admitted directly from [facility]. After receiving her pacemaker a little over a week ago the patient has had increased confusion, forgetfulness and need for assistance while at home. Since her discharge on 01/16/21 her elderly has been taking care of her. He is exhausted and feels he can no longer provide the level of care she needs. She denies pain at this time. She is having BM and urinating. Poor nutritional intake. Moving around with assistance. She is alert and pleasant. She denies the following: chest pain, SOB, Abdominal pain, N/V or the feeling of F/C. Date of Admission Jan 21, 2021 at 16:33 Date of Discharge today or tomorrow to [facility] unit. Time Seen by Provider: 10:00 Attending Physician Cheyenne Gross DO Admitting Physician Cheyenne Gross DO Consult Cardiology hx of pacemaker placement Allergies and Home Medications Allergies Coded Allergies: No Known Drug Allergies (Verified , 01/21/21) Home Medications Amlodipine Besylate 10 Mg Tablet, 5 MG PO 0900, (Reported) TAKES OF A 10MG TAB Apixaban 5 Mg Tablet, 5 MG PO BID, (Reported) Atenolol 25 Mg Tablet, 50 MG PO 0900, (Reported) TAKES 2 (25MG) TABS Cefuroxime Axetil 500 Mg Tablet, 500 MG PO BID, (Reported) FILLED 01-16-2021 #10/5 DAY SUPPLY Cyanocobalamin (Vitamin B-12) 5,000 Mcg Tab.subl, 5,000 MCG SL DAILY, (Reported) Diclofenac Sodium 75 Mg Tablet.dr, 75 MG PO 0900,2100, (Reported) Donepezil HCl 10 Mg Tablet, 5 MG PO 2200, (Reported) TAKES OF A 10MG TAB Flecainide Acetate 50 Mg Tablet, 50 MG PO 0600,1400,2200, (Reported) Hydrocodone/Acetaminophen 1 Each Tablet, 1 EA PO BID PRN for PAIN-MODERATE (5- 7), (Reported) Levothyroxine Sodium 75 Mcg Tablet, 75 MCG PO 0600, (Reported) Lovastatin 20 Mg Tablet, 20 MG PO 0900, (Reported) Bunch-3/Dha/Epa/Fish Oil 1 Each Capsule, 1 EACH PO 0600,2200, (Reported) [Folate] 13,33/,800 TAB, 1 TAB PO HS, (Reported) FOLATE. 1333MCG DFE AND 800 MCG FOLIC ACID Past Jxtohrr-Ysvzii-Vggzgn Hx Patient Social History Smoking Status: Never a Smoker Recent Hopitalizations: No Have you traveled recently?: No Alcohol Use?: No Pt feels they are or have been: No Immunizations Up To Date Tetanus Booster (TDap): Less than 5yrs Pediatric: No Date of Pneumonia Vaccine: Aug 20, 2014 Date of Influenza Vaccine: Oct 20, 2020 Surgeries Yes (BUNIONECTOMY RIGHT FOOT) Abdominal, Appendectomy, Eye Surgery, Hysterectomy, Oophorectomy, Orthopedic, Thyroidectomy Respiratory Yes Cardiovascular Yes (STRESS TEST 06/2013--MILD DISEASE, NO INTERVENTION. ) Atrial Fibrillation, High Cholesterol, Hypertension Neurological No Reproductive System Hx Reproductive Disorders: No Sexually Transmitted Disease: No HIV/AIDS: No Female Reproductive Disorders: Denies Gastrointestinal No Musculoskeletal Yes Arthritis Endocrine History of Endocrine Disorders: Yes Endocrine Disorders: Hypothyroidsim HEENT Loss of Vision: Denies Cancer Yes (squamous cell) Skin Psychosocial History of Psychiatric Problem: Yes Behavioral Health Disorders: Anxiety Integumentary History of Skin or Integumenta: No Blood Transfusions History of Blood Disorders: No Adverse Reaction to a Blood Tr: No Family Medical History Family Hx: Patient reports no known family medical history. Review of Systems Constitutional: no symptoms reported EENTM: no symptoms reported Respiratory: no symptoms reported Cardiovascular: no symptoms reported Gastrointestinal: no symptoms reported Genitourinary: no symptoms reported Musculoskeletal: back pain Skin: no symptoms reported Psychiatric/Neurological: No Symptoms Reported Physical Exam Vital Signs Vital Signs - First Documented 01/21/21 17:17 Temp 36.6 Pulse 62 Resp 18 B/P (MAP) 154/75 (101) Pulse Ox 98 O2 Delivery Room Air Capillary Refill : Height, Weight, BMI Height: 5'5.00" Weight: 152lbs. 0.0oz. 68.820561mm; 25.90 BMI Method:Stated General Appearance: No Apparent Distress, Chronically ill HEENT: PERRL/EOMI Neck: Full Range of Motion, Non Tender Respiratory: Chest Non Tender, Normal Breath Sounds, No Accessory Muscle Use, No Respiratory Distress Cardiovascular: Regular Rate, Rhythm, No Edema, Normal Peripheral Pulses Gastrointestinal: Non Tender, Soft Back: No CVA Tenderness Extremity: No Calf Tenderness Neurologic/Psychiatric: Alert (oriented to person and place), snaker II-XII Norm as Tested Skin: Normal Color Lymphatic: No Adenopathy Short Stay Diagnosis Conclusion Labs Laboratory Tests 01/21/21 17:07: White Blood Count 7.0, Red Blood Count 3.35L, Hemoglobin 11.5, Hematocrit 34L, Mean Corpuscular Volume 100H, Mean Corpuscular Hemoglobin 34, Mean Corpuscular Hemoglobin Concent 34, Red Cell Distribution Width 13.2, Platelet Count 276, Mean Platelet Volume 9.9, Immature Granulocyte % (Auto) 1, Neutrophils (%) (Auto) 56, Lymphocytes (%) (Auto) 23, Monocytes (%) (Auto) 13H, Eosinophils (%) (Auto) 6, Basophils (%) (Auto) 1, Neutrophils # (Auto) 3.9, Lymphocytes # (Auto) 1.6, Monocytes # (Auto) 0.9, Eosinophils # (Auto) 0.5H, Basophils # (Auto) 0.0, Immature Granulocyte # (Auto) 0.1, Sodium Level 139, Potassium Level 3.4L, Chloride Level 102, Carbon Dioxide Level 27, Anion Gap 10, Blood Urea Nitrogen 11, Creatinine 0.73, Estimat Glomerular Filtration Rate > 60, BUN/Creatinine Ratio 15, Glucose Level 102, Calcium Level 9.7, Corrected Calcium 9.8, Magnesium Level 2.0, Total Bilirubin 0.8, Aspartate Amino Transf (AST/SGOT) 27, Alanine Aminotransferase (ALT/SGPT) 20, Alkaline Phosphatase 62, Troponin I < 0.028, B- Type Natriuretic Peptide 184.8H, Total Protein 6.9, Albumin 3.9, Thyroid Stimulating Hormone (TSH) 0.96 01/21/21 17:55: Urine Color YELLOW, Urine Clarity SL CLOUDY, Urine pH 7.0, Urine Specific [place] <=1.005, Urine Protein NEGATIVE, Urine Glucose (UA) NEGATIVE, Urine Ketones NEGATIVE, Urine Nitrite NEGATIVE, Urine Bilirubin NEGATIVE, Urine Urobilinogen 0.2, Urine Leukocyte Esterase TRACEH, Urine RBC (Auto) 1+H, Urine RBC 2-5H, Urine WBC 0-2, Urine Crystals NONE, Urine Bacteria TRACE, Urine Casts NONE, Urine Mucus NEGATIVE, Urine Culture Indicated NO 01/21/21 19:27: Lactic Acid Level 0.84, Procalcitonin 0.02 01/22/21 05:14: White Blood Count 6.3, Red Blood Count 3.09L, Hemoglobin 10.4L, Hematocrit 31L, Mean Corpuscular Volume 100H, Mean Corpuscular Hemoglobin 34, Mean Corpuscular Hemoglobin Concent 34, Red Cell Distribution Width 13.3, Platelet Count 273, Mean Platelet Volume 9.6, Immature Granulocyte % (Auto) 1, Neutrophils (%) (Auto) 44, Lymphocytes (%) (Auto) 32, Monocytes (%) (Auto) 13H, Eosinophils (%) (Auto) 10, Basophils (%) (Auto) 1, Neutrophils # (Auto) 2.8, Lymphocytes # (Auto) 2.0, Monocytes # (Auto) 0.8, Eosinophils # (Auto) 0.6H, Basophils # (Auto) 0.1, Immature Granulocyte # (Auto) 0.0, Sodium Level 142, Potassium Level 3.3L, Chloride Level 105, Carbon Dioxide Level 28, Anion Gap 9, Blood Urea Nitrogen 9, Creatinine 0.66, Estimat Glomerular Filtration Rate > 60, BUN/Creatinine Ratio 14, Glucose Level 90, Calcium Level 8.8, Corrected Calcium 9.3, Total Bilirubin 0.7, Aspartate Amino Transf (AST/SGOT) 22, Alanine Aminotransferase (ALT/SGPT) 17, Alkaline Phosphatase 53, Total Protein 6.0L, Albumin 3.4 CHEYENNE GROSS DO 01/23/21 0639: History of Present Illness History of Present Illness Reason for visit/HPI CC: Weakness and confusion HPI: See medical student HPI Date of Admission 01/21/21 Date of Discharge 01/22/21 Time Seen by Provider: 10:00 Allergies and Home Medications Allergies Coded Allergies: No Known Drug Allergies (Verified , 01/21/21) Home Medications Amlodipine Besylate 10 Mg Tablet, 5 MG PO 0900, (Reported) TAKES OF A 10MG TAB Apixaban 5 Mg Tablet, 5 MG PO BID, (Reported) Atenolol 25 Mg Tablet, 50 MG PO 0900, (Reported) TAKES 2 (25MG) TABS Cefuroxime Axetil 500 Mg Tablet, 500 MG PO BID, (Reported) FILLED 01-16-2021 #10/ DAY SUPPLY Cyanocobalamin (Vitamin B-12) 5,000 Mcg Tab.subl, 5,000 MCG SL DAILY, (Reported) Diclofenac Sodium 75 Mg Tablet.dr, 75 MG PO 0900,2100, (Reported) Donepezil HCl 10 Mg Tablet, 5 MG PO 2200, (Reported) TAKES OF A 10MG TAB Flecainide Acetate 50 Mg Tablet, 50 MG PO 0600,1400,2200, (Reported) Hydrocodone/Acetaminophen 1 Each Tablet, 1 EA PO BID PRN for PAIN-MODERATE (5- 7), (Reported) Levothyroxine Sodium 75 Mcg Tablet, 75 MCG PO 0600, (Reported) Lovastatin 20 Mg Tablet, 20 MG PO 0900, (Reported) Bunch-3/Dha/Epa/Fish Oil 1 Each Capsule, 1 EACH PO 0600,2200, (Reported) [Folate] 13,33/,800 TAB, 1 TAB PO HS, (Reported) FOLATE. 1333MCG DFE AND 800 MCG FOLIC ACID Patient Home Medication List Home Medication List Reviewed: Yes Past Irebcqk-Mhnyuq-Yrheqp Hx Patient Social History Marrital Status: Employed/Student: retired Smoking Status: Never a Smoker Surgeries Orthopedic, Pacemaker Cardiovascular High Cholesterol, Hypertension Neurological Dementia Family Medical History Family Hx: Patient reports no known family medical history. Review of Systems Constitutional: see HPI Physical Exam General Appearance: No Apparent Distress, WD/WN, Chronically ill Respiratory: Chest Non Tender, Lungs Clear, Normal Breath Sounds, No Accessory Muscle Use, No Respiratory Distress Cardiovascular: Regular Rate, Rhythm, No Edema, No Gallop, No JVD, No Murmur, Normal Peripheral Pulses Neurologic/Psychiatric: Alert, No Motor/Sensory Deficits, Normal Mood/Affect, Disoriented Short Stay Diagnosis Discharge Diagnosis-Short Stay Admission Diagnosis: Confusion Weakness Final Discharge Diagnosis: Confusion Weakness Dementia Conclusion Conclusion/Plan Await placement Supervisory-Addendum Brief Verification & Attestation Participated in pt care: history, MDM, physical Personally performed: exam, history, MDM, supervision of care Care discussed with: Medical Student Procedures: n/a Results interpretation: Verified all documentation Verification and Attestation of Medical Student E/M Service A medical student performed and documented this service in my presence. I reviewed and verified all information documented by the medical student and made modifications to such information, when appropriate. I personally performed the physical exam and medical decision making. Cheryl Mcpherson 6, 2021,06:39 [facility] Jan 22, 2021 12:14 CHEYENNE GROSS DO Jan 23, 2021 06:39
[2021-01-22 15:46] VITALS: BP 135/61
[2021-01-22 19:19] VITALS: BP 130/61
--- NOTE | 2021-01-22 19:44 | Cardiology Progress Note ---
Cardiology SOAP Progress Note Subjective: no cardiac complaints Objective: I&O/Vital Signs 01/23/21 01/23/21 01/23/21 01/23/21 04:45 07:00 07:09 08:00 Temp 36.2 36.7 Pulse 54 49 57 Resp 18 20 B/P (MAP) 128/60 (82) 137/64 (88) Pulse Ox 95 95 95 O2 Delivery Room Air Room Air Room Air 01/23/21 01/23/21 11:48 13:00 Pulse 53 60 Resp 18 B/P (MAP) 119/68 (85) Pulse Ox 97 O2 Delivery Room Air 01/23/21 00:00 Intake Total 1100 ml Balance 1100 ml Weight (Pounds): 152 Weight (Ounces): 0.0 Weight (Calculated Kilograms): 68.969940 Constitutional: AAO x 3 Respiratory: chest is bilaterally symmetric, lungs clear to auscultation Cardiovascular: regular rate-rhythm, S1 and S2 Gastrointestional: soft, audible bowel sounds Extremities: normal range of motion, non-tender, normal inspection, no lower extremity edema bilateral Neurologic/Psychiatric: no motor/sensory deficits, alert, normal mood/affect, oriented x 3 Skin: normal color Results/Procedures: Labs A/P: Assessment/Dx: SSS/PAF CAD HTN HLP Plan: SSS/Paroxysmal atrial fibrillation with controlled ventricular rate. Coronary artery disease, nonobstructive disease per cardiac catheterization done March 22, 2017, had a stress test done in December 2019 showing breast attenuation with no significant ischemia or infarction, EF 79 percent Echocardiogram done in December 2019 showing normal LV size, EF 55-65 percent, moderate mitral regurgitation, mild aortic valve stenosis, gradient at peak 60 mmHg, mean 7 mmHg valve area 1.65 cm, PA pressure 30-35 mmHg. Continue to monitor [id number] score is 3, yearly risk of stroke without oral anticoagulation is 3.2 percent, maintained on Eliquis 5 mg twice daily. Continue current medications and monitor. Peripheral edema, reporting improvement. Continue to monitor. Hypertension, continue to monitor blood pressure. Hyperlipidemia, lipid profile was done on July 08, 2020 showing total cholesterol 174, triglyceride 121, continue to monitor no changes are recommended Hypothyroidism, followed and managed by primary care physician. Osteoarthritis, currently asymptomatic. Anxiety, managed by primary care physician. Carotid artery stenosis-last carotid duplex done in August 2020. Dementia Thank you for your consultation. Please call me if you have any questions. Traci Riddle MD, FACP, FACC, FSCAI, FHRS, CCDS Interventional Cardiology Cardiac Electrophysiology Vascular Medicine and Endovascular Interventions Focused Exam Lactate Level 01/21/21 19:27: Lactic Acid Level 0.84 Vera RIDDLE MD Jan 22, 2021 19:44
[2021-01-22] MEDS: DONEPEZIL 5 MG (ARICEPT) TAB PO SCH (20:23)
[2021-01-22 23:08] VITALS: BP 148/68
[2021-01-23 04:45] VITALS: BP 128/60
[2021-01-23] MEDS: LEVOTHYROXINE 75 MCG (LEVOTHROID) TABLET PO SCH (06:27)
[2021-01-23] MEDS: KCL 10 MEQ TAB (MICRO K) PO SCH (06:27)
[2021-01-23] MEDS: CYANOCOBALAMIN 1,000 MCG (VITAMIN B-12) TABLET PO SCH (06:27)
[2021-01-23] MEDS: FLECAINIDE 50 MG TAB PO SCH ×3 (06:27→20:34)
[2021-01-23 07:09] VITALS: BP 137/64
--- NOTE | 2021-01-23 07:30 | Progress Note ---
Subjective Date Seen by a Provider: Jan 23, 2021 Time Seen by a Provider: 09:30 Subjective/Events-last exam Patient doing well Confusion is apparent I tried to reassure her Conferred with RN Awaiting placement BP remains stable has not arrived today yet Review of Systems General: Fatigue Neurological: Confusion Focused Exam Lactate Level 01/21/21 19:27: Lactic Acid Level 0.84 Objective Exam Last Set of Vital Signs Vital Signs Date Time Temp Pulse Resp B/P (MAP) Pulse Ox O2 Delivery O2 Flow Rate FiO2 01/23/21 07:09 36.7 57 20 137/64 (88) 95 Room Air Capillary Refill : I&O Intake and Output 01/23/21 00:00 Intake Total 1400 ml Output Total 300 ml Balance 1100 ml Intake Oral 1400 ml Output Urine Total 300 ml # Voids 7 # Bowel Movements 1 General: Alert, Oriented X3 (confused at times, easily redirected), Cooperat danni, No Acute Distress Lungs: Clear to Auscultation Heart: Regular Rate Neuro: Normal Gait Assessment/Plan Assessment/Plan Assess & Plan/Chief Complaint Assessment: Dementia with increased confusion [facility] Recent pacemaker placement last week HTN HLP Hypothyroidism OA Severe back pain Hypokalemia Plan: Replace potassium PT OT ERIC GROSS DO Jan 23, 2021 07:30
[2021-01-23] MEDS: DICLOFENAC SOD 75 MG (VOLTAREN) TAB NON-FORMULARY PO SCH ×2 (09:35→17:58)
[2021-01-23] MEDS: amLODIPine 5 MG (NORVASC) TAB PO SCH (09:36)
[2021-01-23] MEDS: APIXABAN 5 MG (ELIQUIS) TABLET PO SCH ×2 (09:36→20:34)
[2021-01-23] MEDS: LOVASTATIN 20 MG TAB PO SCH (09:37)
[2021-01-23] MEDS: OLANZapine 5 MG (ZyPREXA) TAB PO SCH (09:37)
[2021-01-23] MEDS: ATENOLOL 25 MG (TENORMIN) TAB PO SCH (09:39)
[2021-01-23] MEDS: NS IV 1000 ML 1,000 ML IV SCH (11:39)
[2021-01-23 11:48] VITALS: BP 119/68
[2021-01-23] MEDS: HYDROcodone/APAP 5 MG/325 MG (LORTAB) TAB PO PRN (11:54)
--- NOTE | 2021-01-23 14:53 | Cardiology Progress Note ---
Cardiology SOAP Progress Note Subjective: no cardiac complaints Objective: I&O/Vital Signs 01/23/21 01/23/21 01/23/21 01/23/21 04:45 07:00 07:09 08:00 Temp 36.2 36.7 Pulse 54 49 57 Resp 18 20 B/P (MAP) 128/60 (82) 137/64 (88) Pulse Ox 95 95 95 O2 Delivery Room Air Room Air Room Air 01/23/21 01/23/21 11:48 13:00 Pulse 53 60 Resp 18 B/P (MAP) 119/68 (85) Pulse Ox 97 O2 Delivery Room Air 01/23/21 00:00 Intake Total 1100 ml Balance 1100 ml Weight (Pounds): 152 Weight (Ounces): 0.0 Weight (Calculated Kilograms): 68.987884 Constitutional: AAO x 3 Respiratory: chest is bilaterally symmetric, lungs clear to auscultation Cardiovascular: regular rate-rhythm, S1 and S2 Gastrointestional: soft, audible bowel sounds Extremities: normal range of motion, non-tender, normal inspection, no lower extremity edema bilateral Neurologic/Psychiatric: no motor/sensory deficits, alert, normal mood/affect, oriented x 3 Skin: normal color A/P: Assessment/Dx: SSS/PAF CAD HTN HLP Plan: SSS/Paroxysmal atrial fibrillation with controlled ventricular rate. Coronary artery disease, nonobstructive disease per cardiac catheterization done March 22, 2017, had a stress test done in December 2019 showing breast attenuation with no significant ischemia or infarction, EF 79 percent Echocardiogram done in December 2019 showing normal LV size, EF 55-65 percent, moderate mitral regurgitation, mild aortic valve stenosis, gradient at peak 60 mmHg, mean 7 mmHg valve area 1.65 cm, PA pressure 30-35 mmHg. Continue to monitor [id number] score is 3, yearly risk of stroke without oral anticoagulation is 3.2 percent, maintained on Eliquis 5 mg twice daily. Continue current medications and monitor. Peripheral edema, reporting improvement. Continue to monitor. Hypertension, continue to monitor blood pressure. Hyperlipidemia, lipid profile was done on July 08, 2020 showing total cholesterol 174, triglyceride 121, continue to monitor no changes are recommended Hypothyroidism, followed and managed by primary care physician. Osteoarthritis, currently asymptomatic. Anxiety, managed by primary care physician. Carotid artery stenosis-last carotid duplex done in August 2020. Dementia Thank you for your consultation. Please call me if you have any questions. Traci Riddle MD, FACP, FACC, FSCAI, FHRS, CCDS Interventional Cardiology Cardiac Electrophysiology Vascular Medicine and Endovascular Interventions Focused Exam Lactate Level 01/21/21 19:27: Lactic Acid Level 0.84 Vera RIDDLE MD Jan 23, 2021 14:53
[2021-01-23 16:22] VITALS: BP 131/74
[2021-01-23 20:27] VITALS: BP 120/71
[2021-01-23] MEDS: DONEPEZIL 5 MG (ARICEPT) TAB PO SCH (20:34)
[2021-01-24] VITALS: BP 114/73
[2021-01-24] MEDS: NS IV 1000 ML 1,000 ML IV SCH ×2 (02:10→16:07)
[2021-01-24 04:03] VITALS: BP 109/68
[2021-01-24] MEDS: CYANOCOBALAMIN 1,000 MCG (VITAMIN B-12) TABLET PO SCH (05:29)
[2021-01-24] MEDS: LEVOTHYROXINE 75 MCG (LEVOTHROID) TABLET PO SCH (05:29)
[2021-01-24] MEDS: FLECAINIDE 50 MG TAB PO SCH ×3 (05:30→20:08)
[2021-01-24] MEDS: KCL 10 MEQ TAB (MICRO K) PO SCH (05:30)
[2021-01-24 07:07] VITALS: BP 138/73
[2021-01-24 07:20] LABS: MEAN PLATELET VOLUME 9.7 fL (9.0-12.2); WHITE BLOOD COUNT 7.2 10^3/uL (4.3-11.0)
[2021-01-24 07:39] LABS: ALANINE AMINOTRANSFERASE 21 U/L (0-55); ALBUMIN 3.5 GM/DL (3.2-4.5); ALKALINE PHOSPHATASE 56 U/L (40-136); BILIRUBIN,TOTAL 0.5 MG/DL (0.1-1.0); BUN/CREATININE RATIO 22; CALCIUM 9.2 MG/DL (8.5-10.1); CARBON DIOXIDE 24 MMOL/L (21-32); CHLORIDE 105 MMOL/L (98-107); CREATININE SERUM 0.74 MG/DL (0.60-1.30); GFR ESTIMATED > 60; GLUCOSE 95 MG/DL (70-105); POTASSIUM 3.7 MMOL/L (3.6-5.0); SODIUM 141 MMOL/L (135-145); TOTAL PROTEIN 6.1 GM/DL (6.4-8.2)
[2021-01-24] MEDS: APIXABAN 5 MG (ELIQUIS) TABLET PO SCH ×2 (08:35→20:08)
[2021-01-24] MEDS: ATENOLOL 25 MG (TENORMIN) TAB PO SCH (08:36)
[2021-01-24] MEDS: amLODIPine 5 MG (NORVASC) TAB PO SCH (08:36)
[2021-01-24] MEDS: OLANZapine 5 MG (ZyPREXA) TAB PO SCH (08:36)
[2021-01-24] MEDS: LOVASTATIN 20 MG TAB PO SCH (08:38)
--- NOTE | 2021-01-24 09:30 | Progress Note ---
Subjective Date Seen by a Provider: Jan 24, 2021 Time Seen by a Provider: 10:30 Subjective/Events-last exam Patient doing well Confused at times Awaiting placement at [facility] alf No pain reported PT OT BM+ Eating well Review of Systems General: Fatigue, Malaise Neurological: Weakness, Confusion Focused Exam Lactate Level 01/21/21 19:27: Lactic Acid Level 0.84 Objective Exam Last Set of Vital Signs Vital Signs Date Time Temp Pulse Resp B/P (MAP) Pulse Ox O2 Delivery O2 Flow Rate FiO2 01/24/21 07:07 37.2 60 16 138/73 (94) 94 Room Air Capillary Refill : I&O Intake and Output 01/24/21 00:00 Intake Total 1040 ml Output Total 200 ml Balance 840 ml Intake Oral 1040 ml Output Urine Total 200 ml # Voids 6 General: Alert, Oriented X3, Cooperative, No Acute Distress Lungs: Clear to Auscultation, Normal Air Movement Heart: Regular Rate, Normal S1, Normal S2, No Murmurs Neuro: Normal Gait, Normal Speech, Strength at 5/5 X4 Ext, Normal Tone Psych/Mental Status: Other (poor recall) Results Lab Laboratory Tests 01/24/21 07:04: White Blood Count 7.2, Red Blood Count 3.26L, Hemoglobin 11.0L, Hematocrit 33L, Mean Corpuscular Volume 101H, Mean Corpuscular Hemoglobin 34, Mean Corpuscular Hemoglobin Concent 33, Red Cell Distribution Width 13.5, Platelet Count 310, Mean Platelet Volume 9.7, Sodium Level 141, Potassium Level 3.7, Chloride Level 105, Carbon Dioxide Level 24, Anion Gap 12, Blood Urea Nitrogen 16, Creatinine 0.74, Estimat Glomerular Filtration Rate > 60, BUN/Creatinine Ratio 22, Glucose Level 95, Calcium Level 9.2, Corrected Calcium 9.6, Total Bilirubin 0.5, Aspartate Amino Transf (AST/SGOT) 23, Alanine Aminotransferase (ALT/SGPT) 21, Alkaline Phosphatase 56, Total Protein 6.1L, Albumin 3.5 Assessment/Plan Assessment/Plan Assess & Plan/Chief Complaint Assessment: Dementia with increased confusion awaiting placement at [facility] Monday Recent pacemaker placement last week HTN HLP Hypothyroidism OA Severe back pain Hypokalemia Plan: Replace potassium PT OT 01/24/21: Monitor BP Potassium good DC tomorrow to [facility] ERIC GROSS DO Jan 24, 2021 09:30
[2021-01-24] MEDS: DICLOFENAC SOD 75 MG (VOLTAREN) TAB NON-FORMULARY PO SCH ×2 (09:34→17:26)
[2021-01-24 11:52] VITALS: BP 144/77
--- NOTE | 2021-01-24 15:13 | Cardiology Progress Note ---
Cardiology SOAP Progress Note Subjective: no cardiac complaints Objective: I&O/Vital Signs 01/24/21 01/24/21 01/24/21 01/24/21 04:03 07:00 07:07 08:00 Temp 36.2 37.2 Pulse 56 59 60 Resp 16 16 B/P (MAP) 109/68 (82) 138/73 (94) Pulse Ox 94 94 94 O2 Delivery Room Air Room Air Room Air 01/24/21 01/24/21 11:52 12:22 Temp 37.2 Pulse 65 68 Resp 18 B/P (MAP) 144/77 (99) Pulse Ox 94 O2 Delivery Room Air 01/23/21 23:59 Intake Total 940 ml Output Total 200 ml Balance 740 ml Weight (Pounds): 152 Weight (Ounces): 0.0 Weight (Calculated Kilograms): 68.844751 Constitutional: AAO x 3 Respiratory: chest is bilaterally symmetric, lungs clear to auscultation Cardiovascular: regular rate-rhythm, S1 and S2 Gastrointestional: soft, audible bowel sounds Extremities: normal range of motion, non-tender, normal inspection, no lower extremity edema bilateral Neurologic/Psychiatric: no motor/sensory deficits, alert, normal mood/affect, oriented x 3 Skin: normal color Results/Procedures: Labs Laboratory Tests 01/24/21 07:04: White Blood Count 7.2, Red Blood Count 3.26L, Hemoglobin 11.0L, Hematocrit 33L, Mean Corpuscular Volume 101H, Mean Corpuscular Hemoglobin 34, Mean Corpuscular Hemoglobin Concent 33, Red Cell Distribution Width 13.5, Platelet Count 310, Mean Platelet Volume 9.7, Sodium Level 141, Potassium Level 3.7, Chloride Level 105, Carbon Dioxide Level 24, Anion Gap 12, Blood Urea Nitrogen 16, Creatinine 0.74, Estimat Glomerular Filtration Rate > 60, BUN/Creatinine Ratio 22, Glucose Level 95, Calcium Level 9.2, Corrected Calcium 9.6, Total Bilirubin 0.5, Aspartate Amino Transf (AST/SGOT) 23, Alanine Aminotransferase (ALT/SGPT) 21, Alkaline Phosphatase 56, Total Protein 6.1L, Albumin 3.5 A/P: Assessment/Dx: SSS/PAF CAD HTN HLP Plan: SSS/Paroxysmal atrial fibrillation with controlled ventricular rate. Coronary artery disease, nonobstructive disease per cardiac catheterization done March 22, 2017, had a stress test done in December 2019 showing breast attenuation with no significant ischemia or infarction, EF 79 percent Echocardiogram done in December 2019 showing normal LV size, EF 55-65 percent, moderate mitral regurgitation, mild aortic valve stenosis, gradient at peak 60 mmHg, mean 7 mmHg valve area 1.65 cm, PA pressure 30-35 mmHg. Continue to monitor [id number] score is 3, yearly risk of stroke without oral anticoagulation is 3.2 percent, maintained on Eliquis 5 mg twice daily. Continue current medications and monitor. Peripheral edema, reporting improvement. Continue to monitor. Hypertension, continue to monitor blood pressure. Hyperlipidemia, lipid profile was done on July 08, 2020 showing total cholesterol 174, triglyceride 121, continue to monitor no changes are recommended Hypothyroidism, followed and managed by primary care physician. Osteoarthritis, currently asymptomatic. Anxiety, managed by primary care physician. Carotid artery stenosis-last carotid duplex done in August 2020. Dementia Thank you for your consultation. Please call me if you have any questions. Traci Riddle MD, FACP, FACC, FSCAI, FHRS, CCDS Interventional Cardiology Cardiac Electrophysiology Vascular Medicine and Endovascular Interventions Focused Exam Lactate Level 01/21/21 19:27: Lactic Acid Level 0.84 Vera RIDDLE MD Jan 24, 2021 15:13
[2021-01-24 15:21] VITALS: BP 112/73
[2021-01-24 19:12] VITALS: BP 128/74
[2021-01-24] MEDS: DONEPEZIL 5 MG (ARICEPT) TAB PO SCH (20:07)
[2021-01-25 00:25] VITALS: BP 163/74
[2021-01-25 04:43] VITALS: BP 129/74
[2021-01-25] MEDS: NS IV 1000 ML 1,000 ML IV SCH (05:40)
[2021-01-25] MEDS: FLECAINIDE 50 MG TAB PO SCH ×2 (05:40→13:13)
[2021-01-25] MEDS: CYANOCOBALAMIN 1,000 MCG (VITAMIN B-12) TABLET PO SCH (05:40)
[2021-01-25] MEDS: KCL 10 MEQ TAB (MICRO K) PO SCH (05:40)
[2021-01-25] MEDS: LEVOTHYROXINE 75 MCG (LEVOTHROID) TABLET PO SCH (05:40)
[2021-01-25] MEDS ORDERED: ACHD5005 PO (05:53)
--- NOTE | 2021-01-25 05:54 | Discharge Inst-Skilled Nursing ---
Discharge Inst-Skilled NF Reconcile Patient Problems Problems Reviewed?: Yes Patient Instructions Patient Problems: Debility Dementia Recent pacemaker Consult/Follow Up/Orders Follow Up Appt.: Dr Sanders/Aubree Yates [place] rounds Skilled NF Admit to: Via [facility] ([facility]) I certify that SNF services are required to be given on an inpatient basis because of the above named patient's need for long term care on a continuing basis for the conditions(s) for which he/she was receiving inpatient hospital services prior to his/her transfer to the [facility]. Long Term Facility Order: Nursing Services, Ext Js Developer-Evaluate & Treat, Physical Therapy-Evaluate & Treat, Speech Language-Evaluate & Treat Oxygen Delivery Method: Room Air Discharge Diet: No Restrictions Daily Activity as Tolerated: Yes Resuscitation Status: Full Code New & Resume Previous Orders Continued Medications: Amlodipine Besylate (Amlodipine Besylate) 10 Mg Tablet 5 MG PO 0900, TAB TAKES OF A 10MG TAB Apixaban (Eliquis) 5 Mg Tablet 5 MG PO BID, TAB Atenolol (Atenolol) 25 Mg Tablet 50 MG PO 0900, TAB TAKES 2 (25MG) TABS Cyanocobalamin (Vitamin B-12) (Vitamin B-12) 5,000 Mcg Tab.subl 5000 MCG SL DAILY, TAB Diclofenac Sodium (Diclofenac Sodium) 75 Mg Tablet.dr 75 MG PO 0900,2100, TAB Donepezil HCl (Donepezil HCl) 10 Mg Tablet 5 MG PO 2200, TAB TAKES OF A 10MG TAB Flecainide Acetate (Flecainide Acetate) 50 Mg Tablet 50 MG PO 0600,1400,2200, TAB [Folate] () 13,33/,800 TAB 1 TAB PO HS, TAB FOLATE. 1333MCG DFE AND 800 MCG FOLIC ACID Hydrocodone/Acetaminophen (Hydrocodone-Acetamin 5-325 mg) 1 Each Tablet 1 EA PO BID PRN for PAIN-MODERATE (5-7), #40 TAB (This prescription has been renewed) Levothyroxine Sodium (Levothyroxine Sodium) 75 Mcg Tablet 75 MCG PO 0600, TAB Lovastatin (Lovastatin) 20 Mg Tablet 20 MG PO 0900, TAB [place]-3/Dha/Epa/Fish Oil (Fish Oil 1,000 mg Softgel) 1 Each Capsule 1 EACH PO 0600,2200, CAP Discontinued Medications: Cefuroxime Axetil (Cefuroxime) 500 Mg Tablet 500 MG PO BID, TAB FILLED 01-16-2021 #10/5 DAY SUPPLY Cheyenne Sanders Jan 25, 2021 05:54 CHEYENNE SANDERS DO Jan 25, 2021 05:54
--- NOTE | 2021-01-25 05:55 | Discharge Summary ---
Diagnosis/Chief Complaint Date of Admission Jan 21, 2021 at 16:33 Date of Discharge Discharge Date: Jan 25, 2021 Discharge Diagnosis Weakness Dementia Recent pacemaker Reason Hospital Visit CC: Weakness and confusion HPI: See medical student HPI Discharge Summary Discharge Physical Examination Allergies: Coded Allergies: No Known Drug Allergies (Verified , 01/21/21) Vitals & I&Os Vital Signs Date Time Temp Pulse Resp B/P (MAP) Pulse Ox O2 Delivery O2 Flow Rate FiO2 01/25/21 14:15 36.6 69 18 160/72 94 Room Air General Appearance: Alert, Cooperative Respiratory: Clear to Auscultation Cardiovascular: Regular Rate Neuro: Normal Gait Hospital Course Was the Problem List Reviewed?: Yes Hospital Course: Pt had a lengthy observation hospital course. Her could no longer take care of her due to significant dementia that worsened after pacemaker placed. He bowel function returned back to normal. She was able to participate in PT and OT and overall did very well. Cardiology monitored the paced rhythm with telemetry and overall she felt good enough and stable enough to go to care home for correction care. Labs (last 24 hrs) Laboratory Tests 01/21/21 17:07: White Blood Count 7.0, Red Blood Count 3.35L, Hemoglobin 11.5, Hematocrit 34L, Mean Corpuscular Volume 100H, Mean Corpuscular Hemoglobin 34, Mean Corpuscular Hemoglobin Concent 34, Red Cell Distribution Width 13.2, Platelet Count 276, Mean Platelet Volume 9.9, Immature Granulocyte % (Auto) 1, Neutrophils (%) (Auto) 56, Lymphocytes (%) (Auto) 23, Monocytes (%) (Auto) 13H, Eosinophils (%) (Auto) 6, Basophils (%) (Auto) 1, Neutrophils # (Auto) 3.9, Lymphocytes # (Auto) 1.6, Monocytes # (Auto) 0.9, Eosinophils # (Auto) 0.5H, Basophils # (Auto) 0.0, Immature Granulocyte # (Auto) 0.1, Sodium Level 139, Potassium Level 3.4L, Chloride Level 102, Carbon Dioxide Level 27, Anion Gap 10, Blood Urea Nitrogen 11, Creatinine 0.73, Estimat Glomerular Filtration Rate > 60, BUN/Creatinine Ratio 15, Glucose Level 102, Calcium Level 9.7, Corrected Calcium 9.8, Magnesium Level 2.0, Total Bilirubin 0.8, Aspartate Amino Transf (AST/SGOT) 27, Alanine Aminotransferase (ALT/SGPT) 20, Alkaline Phosphatase 62, Troponin I < 0.028, B- Type Natriuretic Peptide 184.8H, Total Protein 6.9, Albumin 3.9, Thyroid Stimulating Hormone (TSH) 0.96 01/21/21 17:55: Urine Color YELLOW, Urine Clarity SL CLOUDY, Urine pH 7.0, Urine Specific [place] <=1.005, Urine Protein NEGATIVE, Urine Glucose (UA) NEGATIVE, Urine Ketones NEGATIVE, Urine Nitrite NEGATIVE, Urine Bilirubin NEGATIVE, Urine Urobilinogen 0.2, Urine Leukocyte Esterase TRACEH, Urine RBC (Auto) 1+H, Urine RBC 2-5H, Urine WBC 0-2, Urine Crystals NONE, Urine Bacteria TRACE, Urine Casts NONE, Urine Mucus NEGATIVE, Urine Culture Indicated NO 01/21/21 19:27: Lactic Acid Level 0.84, Procalcitonin 0.02 01/22/21 05:14: White Blood Count 6.3, Red Blood Count 3.09L, Hemoglobin 10.4L, Hematocrit 31L, Mean Corpuscular Volume 100H, Mean Corpuscular Hemoglobin 34, Mean Corpuscular Hemoglobin Concent 34, Red Cell Distribution Width 13.3, Platelet Count 273, Mean Platelet Volume 9.6, Immature Granulocyte % (Auto) 1, Neutrophils (%) (Auto) 44, Lymphocytes (%) (Auto) 32, Monocytes (%) (Auto) 13H, Eosinophils (%) (Auto) 10, Basophils (%) (Auto) 1, Neutrophils # (Auto) 2.8, Lymphocytes # (Auto) 2.0, Monocytes # (Auto) 0.8, Eosinophils # (Auto) 0.6H, Basophils # (Auto) 0.1, Immature Granulocyte # (Auto) 0.0, Sodium Level 142, Potassium Level 3.3L, Chloride Level 105, Carbon Dioxide Level 28, Anion Gap 9, Blood Urea Nitrogen 9, Creatinine 0.66, Estimat Glomerular Filtration Rate > 60, BUN/Creatinine Ratio 14, Glucose Level 90, Calcium Level 8.8, Corrected Calcium 9.3, Total Bilirubin 0.7, Aspartate Amino Transf (AST/SGOT) 22, Alanine Aminotransferase (ALT/SGPT) 17, Alkaline Phosphatase 53, Total Protein 6.0L, Albumin 3.4 01/24/21 07:04: White Blood Count 7.2, Red Blood Count 3.26L, Hemoglobin 11.0L, Hematocrit 33L, Mean Corpuscular Volume 101H, Mean Corpuscular Hemoglobin 34, Mean Corpuscular Hemoglobin Concent 33, Red Cell Distribution Width 13.5, Platelet Count 310, Mean Platelet Volume 9.7, Sodium Level 141, Potassium Level 3.7, Chloride Level 105, Carbon Dioxide Level 24, Anion Gap 12, Blood Urea Nitrogen 16, Creatinine 0.74, Estimat Glomerular Filtration Rate > 60, BUN/Creatinine Ratio 22, Glucose Level 95, Calcium Level 9.2, Corrected Calcium 9.6, Total Bilirubin 0.5, Aspartate Amino Transf (AST/SGOT) 23, Alanine Aminotransferase (ALT/SGPT) 21, Alkaline Phosphatase 56, Total Protein 6.1L, Albumin 3.5 Pending Labs Laboratory Tests 01/21/21 17:07: White Blood Count 7.0, Red Blood Count 3.35, Hemoglobin 11.5, Hematocrit 34, Mean Corpuscular Volume 100, Mean Corpuscular Hemoglobin 34, Mean Corpuscular Hemoglobin Concent 34, Red Cell Distribution Width 13.2, Platelet Count 276, Mean Platelet Volume 9.9, Immature Granulocyte % (Auto) 1, Neutrophils (%) (Auto) 56, Lymphocytes (%) (Auto) 23, Monocytes (%) (Auto) 13, Eosinophils (%) (Auto) 6, Basophils (%) (Auto) 1, Neutrophils # (Auto) 3.9, Lymphocytes # (Auto) 1.6, Monocytes # (Auto) 0.9, Eosinophils # (Auto) 0.5, Basophils # (Auto) 0.0, Immature Granulocyte # (Auto) 0.1, Sodium Level 139, Potassium Level 3.4, Chloride Level 102, Carbon Dioxide Level 27, Anion Gap 10, Blood Urea Nitrogen 11, Creatinine 0.73, Estimat Glomerular Filtration Rate > 60, BUN/Creatinine Ratio 15, Glucose Level 102, Calcium Level 9.7, Corrected Calcium 9.8, Magnesium Level 2.0, Total Bilirubin 0.8, Aspartate Amino Transf (AST/SGOT) 27, Alanine Aminotransferase (ALT/SGPT) 20, Alkaline Phosphatase 62, Troponin I < 0.028, B- Type Natriuretic Peptide 184.8, Total Protein 6.9, Albumin 3.9, Thyroid Stimulating Hormone (TSH) 0.96 01/21/21 17:55: Urine Color YELLOW, Urine Clarity SL CLOUDY, Urine pH 7.0, Urine Specific [place] <=1.005, Urine Protein NEGATIVE, Urine Glucose (UA) NEGATIVE, Urine Ketones NEGATIVE, Urine Nitrite NEGATIVE, Urine Bilirubin NEGATIVE, Urine Urobilinogen 0.2, Urine Leukocyte Esterase TRACE, Urine RBC (Auto) 1+, Urine RBC 2-5, Urine WBC 0-2, Urine Crystals NONE, Urine Bacteria TRACE, Urine Casts NONE, Urine Mucus NEGATIVE, Urine Culture Indicated NO 01/21/21 19:27: Lactic Acid Level 0.84, Procalcitonin 0.02 01/22/21 05:14: White Blood Count 6.3, Red Blood Count 3.09, Hemoglobin 10.4, Hematocrit 31, Mean Corpuscular Volume 100, Mean Corpuscular Hemoglobin 34, Mean Corpuscular Hemoglobin Concent 34, Red Cell Distribution Width 13.3, Platelet Count 273, Mean Platelet Volume 9.6, Immature Granulocyte % (Auto) 1, Neutrophils (%) (Auto ) 44, Lymphocytes (%) (Auto) 32, Monocytes (%) (Auto) 13, Eosinophils (%) (Auto) 10, Basophils (%) (Auto) 1, Neutrophils # (Auto) 2.8, Lymphocytes # (Auto) 2.0, Monocytes # (Auto) 0.8, Eosinophils # (Auto) 0.6, Basophils # (Auto) 0.1, Immature Granulocyte # (Auto) 0.0, Sodium Level 142, Potassium Level 3.3, Chloride Level 105, Carbon Dioxide Level 28, Anion Gap 9, Blood Urea Nitrogen 9, Creatinine 0.66, Estimat Glomerular Filtration Rate > 60, BUN/Creatinine Ratio 14, Glucose Level 90, Calcium Level 8.8, Corrected Calcium 9.3, Total Bilirubin 0.7, Aspartate Amino Transf (AST/SGOT) 22, Alanine Aminotransferase (ALT/SGPT) 17, Alkaline Phosphatase 53, Total Protein 6.0, Albumin 3.4 01/24/21 07:04: White Blood Count 7.2, Red Blood Count 3.26, Hemoglobin 11.0, Hematocrit 33, Mean Corpuscular Volume 101, Mean Corpuscular Hemoglobin 34, Mean Corpuscular Hemoglobin Concent 33, Red Cell Distribution Width 13.5, Platelet Count 310, Mean Platelet Volume 9.7, Sodium Level 141, Potassium Level 3.7, Chloride Level 105, Carbon Dioxide Level 24, Anion Gap 12, Blood Urea Nitrogen 16, Creatinine 0.74, Estimat Glomerular Filtration Rate > 60, BUN/Creatinine Ratio 22, Glucose Level 95, Calcium Level 9.2, Corrected Calcium 9.6, Total Bilirubin 0.5, Aspartate Amino Transf (AST/SGOT) 23, Alanine Aminotransferase (ALT/SGPT) 21, Alkaline Phosphatase 56, Total Protein 6.1, Albumin 3.5 Discharge Home Medications: Active Scripts Active Hydrocodone-Acetamin 5-325 mg (Hydrocodone/Acetaminophen) 1 Each Tablet 1 Ea PO BID PRN Reported Vitamin B-12 (Cyanocobalamin (Vitamin B-12)) 5,000 Mcg Tab.subl 5,000 Mcg SL DAILY Fish Oil 1,000 mg Softgel ([place]-3/Dha/Epa/Fish Oil) 1 Each Capsule 1 Each PO 0600,2200 [Folate] 13,33/,800 Tab 1 Tab PO HS FOLATE. 1333MCG DFE AND 800 MCG FOLIC ACID Amlodipine Besylate 10 Mg Tablet 5 Mg PO 0900 TAKES OF A 10MG TAB Levothyroxine Sodium 75 Mcg Tablet 75 Mcg PO 0600 Lovastatin 20 Mg Tablet 20 Mg PO 0900 Diclofenac Sodium 75 Mg Tablet.dr 75 Mg PO 0900,2100 Atenolol 25 Mg Tablet 50 Mg PO 0900 TAKES 2 (25MG) TABS Flecainide Acetate 50 Mg Tablet 50 Mg PO 0600,1400,2200 Eliquis (Apixaban) 5 Mg Tablet 5 Mg PO BID Donepezil HCl 10 Mg Tablet 5 Mg PO 2200 TAKES OF A 10MG TAB Instructions to patient/family Please see electronic discharge instructions given to patient. ERIC GROSS DO Jan 25, 2021 05:55
[2021-01-25 08:00] VITALS: BP 160/72
[2021-01-25] MEDS: LOVASTATIN 20 MG TAB PO SCH (08:23)
[2021-01-25] MEDS: amLODIPine 5 MG (NORVASC) TAB PO SCH (08:23)
[2021-01-25] MEDS: APIXABAN 5 MG (ELIQUIS) TABLET PO SCH (08:23)
[2021-01-25] MEDS: DICLOFENAC SOD 75 MG (VOLTAREN) TAB NON-FORMULARY PO SCH (08:24)
[2021-01-25] MEDS: ATENOLOL 25 MG (TENORMIN) TAB PO SCH (08:25)
[2021-01-25] MEDS: OLANZapine 5 MG (ZyPREXA) TAB PO SCH (08:28)
--- NOTE | 2021-01-25 11:06 | Physical Therapy Evaluation ---
PT Evaluation-General Medical Diagnosis Admission Date Jan 21, 2021 at 16:33 Medical Diagnosis: confusion Onset Date: Jan 21, 2021 Therapy Diagnosis Therapy Diagnosis: debility/weakness Height/Weight Height (Feet): 5 Height (Inches): 5.00 Weight (Pounds): 152 Weight (Ounces): 0.0 Precautions Precautions/Isolations: Fall Prevention, Standard Precautions Referral Physician: Marilyn Reason for Referral: Evaluation/Treatment Medical History Pertinent Medical History: Atrial Fib, Dementia, HTN, Hypothroidism, OA Current History Direct admit from physician's office Reviewed History: Yes Social History Current Living Status: Spouse Prior Prior Level of Function SCALE: Activities may be completed with or without assistive devices. 4-Rtwolheojj-rnqztkz completes the activity by him/herself with no assistance from a helper. 5-Set-up or Clean-up Assistance-helper sets up or cleans up; patient completes activity. [place] assists only prior to or following the activity. 4-Supervision or Touching Assistance-helper provides verbal cues and/or touching/steadying and/or contact guard assistance as patient completes activity. Assistance may be provided throughout the activity or intermittently. 3-Partial/Moderate Assistance-helper does LESS THAN HALF the effort. [place] lifts, holds or supports trunk or limbs, but provides less than half the effort. 2-Substantial/Maximal Assistance-helper does MORE THAN HALF the effort. [place] lifts or holds trunk or limbs and provides more than half the effort. 0-Urkhnksaq-snrdms does ALL the effort. Patient does none of the effort to complete the activity. Or, the assistance of 2 or more helpers is required for the patient to complete the activity. If activity was not attempted, code reason: 7-Patient Refused. 9-Not Applicable-not attempted and the patient did not perform the activity before the current illness, exacerbation or injury. 10-Not Attempted due to Environmental Limitations-(lack of equipment, weather restraints, etc.). 88-Not Attempted due to Medical Conditions or Safety Concerns. Bed Mobility: 5 Transfers (B,C,W/C): 5 Gait: 5 Indoor Mobility (Ambulation): Needed Some Help Stairs: Needed Some Help Prior Devices Use: Walker PT Evaluation-Current Subjective Patient is in bed and very confused. States, "It's about time to get my hair done. Will you go wait on them please." Objective Patient Orientation: Confused Attachments: IV ROM/Strength ROM Lower Extremities bilateral LE WFL Strength Lower Extremities 3/5 grossly bilateral LE (no formal MMT due to inability to follow simple direction.) Integumentary/Posture Integumentary refer to nursing notes Bladder Incontinence: Yes Posture WFL Neuromuscular (Tone, Coordination, Reflexes) grossly intact Sensory Vision: Functional Hearing: Functional Transfers Roll Left to Right (QC): 4 Sit to Lying (QC): 3 Lying to Sitting/Side of Bed(Q: 3 Sit to Stand (QC): 3 Chair/Sft-zu-Blbar Xfer(QC): 3 Gait Does the Patient Walk?: Yes Mode of Locomotion: Walk Anticipated Mode of Locomotion: Walk Walk 10 feet (QC): 3 Walk 50 ft with 2 Turns(QC): 3 Walk 150 ft (QC): 3 Distance: 275' Gait Assistive Device: FWW Comments/Gait Description functional gait sequence (fatigues quickly) Balance Sitting Static: Normal Sitting Dynamic: Normal Standing Static: Fair Standing Dynamic: Fair Treatment chair alarm activated for patient safety Assessment/Needs 85 y.o. female, will benefit from skilled PT to address functional strength and mobility to improve current LOF. Per report, spouse is unable to care for patient safely. Rehab Potential: Fair PT Remote Sensing Research Scientist Goals [facility] Goals PT Remote Sensing Research Scientist Goals Time Frame: Feb 05, 2021 Roll Left & Right (QC): 4 Sit to Lying (QC): 4 Lying-Sitting on Side/Bed(QC): 4 Sit to Stand (QC): 4 Chair/Gnh-xb-Aqfcy Xfer(QC): 4 Toilet Transfer (QC): 4 Does the Patient Walk: Yes Walk 10 feet (QC): 4 Walk 50ft with 2 Turns (QC): 4 Walk 150 ft (QC): 4 PT Plan Problem List Problem List: Activity Tolerance, Functional Strength, Safety, Balance, Gait, Transfer, Bed Mobility Treatment/Plan Treatment Plan: Continue Plan of Care Treatment Plan: Bed Mobility, Education, Functional Activity Roel, Functional Strength, Gait, Safety, Therapeutic Exercise, Transfers Treatment Duration: Feb 05, 2021 Frequency: 6 times per week Estimated Hrs Per Day: .25 hour per day Time/GCodes Time In: 901 Time Out: 912 Total Billed Treatment Time: 11 Total Billed Treatment 1 visit EVMod 11 min GABY TOLEDO PT Jan 25, 2021 11:06
--- NOTE | 2021-01-25 11:10 | Progress Note - Cardiology ---
Cardiology SOAP Progress Note Subjective: Lying in bed Oriented to self only Denies any c/o Objective: I&O/Vital Signs 01/25/21 01/25/21 01/25/21 01/25/21 00:25 01:00 04:43 06:40 Temp 37.0 36.6 Pulse 72 61 59 61 Resp 18 18 B/P (MAP) 163/74 (103) 129/74 (92) Pulse Ox 95 94 O2 Delivery Room Air Room Air 01/25/21 01/25/21 08:00 08:00 Pulse 69 B/P (MAP) 160/72 (101) Pulse Ox 94 O2 Delivery Room Air 01/25/21 00:00 Intake Total 1170 ml Output Total 850 ml Balance 320 ml Weight (Pounds): 152 Weight (Ounces): 0.0 Weight (Calculated Kilograms): 68.155997 Constitutional: appears stated age; No apparent distress; well-developed, well- nourished Respiratory: chest is bilaterally symmetric, lungs clear to auscultation Cardiovascular: regular rate-rhythm, S1 and S2 Gastrointestional: soft, audible bowel sounds Extremities: no lower extremity edema bilateral Neurologic/Psychiatric: grossly intact (moves all extremities) Skin: normal color; No rash on exposed areas, No ulcerations on exposed areas; other (LACW with dressing in place; device implant site with steri-strips, no redness, no swelling, no drainage) A/P: Assessment: SSS/Paroxysmal atrial fibrillation S/P dual chamber PPM implant on 01-15-[address] Mcfarland Coronary artery disease, nonobstructive disease per cardiac catheterization done March 22, 2017, had a stress test done in December 2019 showing breast attenuation with no significant ischemia or infarction, EF [address] Mcfarland Echocardiogram done 01-14-[address] Mcfarland showing LVEF 55-65%. AoV sclerosis. LA mildly dilated [id number] score is 3, yearly risk of stroke without oral anticoagulation is 3.2 percent, maintained on Eliquis 5 mg twice daily Hypertension Hyperlipidemia Hypothyroidism Osteoarthritis Anxiety Carotid artery stenosis-last carotid duplex done in August [address] Mcfarland Dementia Plan: Continue current medication regimen Records from Dr. Riddle from the weekend and Dr. Mcfarland from last week reviewed CADENCE CRAWLEY Jan 25, 2021 11:10
--- NOTE | 2021-01-25 13:58 | Occupational Therapy Eval ---
OT Evaluation-General/PLF Medical Diagnosis Admission Date Jan 21, 2021 at 16:33 Medical Diagnosis: confusion Onset Date: Jan 21, 2021 Therapy Diagnosis Therapy Diagnosis: weakness, decreased ADL Status Height/Weight Height (Feet): 5 Height (Inches): 5.00 Weight (Pounds): 152 Weight (Ounces): 0.0 Precautions Precautions/Isolations: Fall Prevention, Standard Precautions Referral Physician: Marilyn Referral Reason: Evaluation/Treatment Medical History Pertinent Medical History: Atrial Fib, Dementia, HTN, Hypothroidism, OA Current History Pt directly admitted from physician's office Social History Current Living Status: Spouse ADL-Prior Level of Function SCALE: Activities may be completed with or without assistive devices. 7-Rzejoczpyt-mnxbizp completes the activity by him/herself with no assistance from a helper. 5-Set-up or Clean-up Assistance-helper sets up or cleans up; patient completes activity. [place] assists only prior to or following the activity. 4-Supervision or Touching Assistance-helper provides verbal cues and/or touching/steadying and/or contact guard assistance as patient completes activity. Assistance may be provided throughout the activity or intermittently. 3-Partial/Moderate Assistance-helper does LESS THAN HALF the effort. [place] lifts, holds or supports trunk or limbs, but provides less than half the effort. 2-Substantial/Maximal Assistance-helper does MORE THAN HALF the effort. [place] lifts or holds trunk or limbs and provides more than half the effort. 1-Sdjxhihsf-tejkss does ALL the effort. Patient does none of the effort to complete the activity. Or, the assistance of 2 or more helpers is required for the patient to complete the activity. If activity was not attempted, code reason: 7-Patient Refused. 9-Not Applicable-not attempted and the patient did not perform the activity before the current illness, exacerbation or injury. 10-Not Attempted due to Environmental Limitations-(lack of equipment, weather restraints, etc.). 88-Not Attempted due to Medical Conditions or Safety Concerns. ADL PLOF Comments Pt indicates IND with ADLs at PLOF. Pt's present and states this is not the case, he helps her with all ADLS, including, bathing, dressing and toilet ing. Self Care: Needed Some Help Functional Cognition: Needed Some Help OT Current Status Subjective Pt laying in bed, present. Pt agreeable to OT evaluation and tx. Mental Status/Objective Patient Orientation: Confused ADL-Treatment Oral Hygiene (QC): 7 Other Treatments Pt laying in bed, OT educated pt on purpose and benefit of OT, she verbalized understanding. Pt's provided information about PLOF and home set up, stating he helps with all ADLS at home. He manages her clothing when she goes to the bathroom, and assist with showering/dressing. OT offered oral are to pt, but pt indicates she already completed this morning. Pt cold, so OT provided pt with warm blanket. OT educated pt on UE exercises in order to increase BUE strength and endurance. Post tx, pt laying in bed, call light in reach and all needs met, present. Education OT Patient Education: Correct positioning, Exercise program, Progress toward Goal/Update tx plan, Purpose of tx/functional activities Teaching Recipient: Patient, Significant Other Teaching Methods: Discussion Response to Teaching: Verbalize Understanding OT Care Home Goals Premises Technician Goals Time Frame: Feb 01, 2021 Eating (QC): 5 Oral Hygiene (QC): 5 Toileting Hygiene (QC): 3 Shower/Bathe Self (QC): 3 Upper Body Dressing (QC): 4 Lower Body Dressing (QC): 3 On/Off Footwear (QC): 3 1=Demonstrate adherence to instructed precautions during ADL tasks. 2=Patient will verbalize/demonstrate understanding of assistive devices/modifications for ADL. 3=Patient will improve strength/tolerance for activity to enable patient to perform ADL's. OT Education/Plan Problem List/Assessment Assessment: Decreased Activ Tolerance, Decreased UE Strength, Impaired I ADL's, Impaired Self-Care Skills Discharge Recommendations Plan/Recommendations: Continue POC Treatment Plan/Plan of Care Treatment,Training & Education: Yes Patient would benefit from OT for education, treatment and training to promote independence in ADL's, mobility, safety and/or upper extremity function for ADL's. Plan of Care: ADL Retraining, Functional Mobility, UE Funct Exercise/Act Treatment Duration: Feb 01, 2021 Frequency: 5 times per week Estimated Hrs Per Day: .25 hour per day Rehab Potential: Fair Time/GCodes Start Time: 13:15 Stop Time: 13:30 Total Time Billed (hr/min): 15 Billed Treatment Time 1, JUANIS BROWN OT Jan 25, 2021 13:58
[2021-01-25 14:15] VITALS: BP 160/72
--- NOTE | 2021-01-25 16:37 | Progress Note - Cardiology ---
Cardiology SOAP Progress Note Subjective: No cp or palp or syncope or shortness of breath No discomfort No n/v/d Objective: I&O/Vital Signs 01/25/21 01/25/21 01/25/21 01/25/21 04:43 06:40 08:00 08:00 Temp 36.6 Pulse 59 61 69 Resp 18 B/P (MAP) 129/74 (92) 160/72 (101) Pulse Ox 94 94 O2 Delivery Room Air Room Air 01/25/21 14:15 Temp 36.6 Pulse 69 Resp 18 B/P (MAP) 160/72 Pulse Ox 94 O2 Delivery Room Air 01/24/21 23:59 Intake Total 1170 ml Output Total 850 ml Balance 320 ml Weight (Pounds): 152 Weight (Ounces): 0.0 Weight (Calculated Kilograms): 68.005568 Device Insertion Site: without hematoma Bruising: mild bruising Constitutional: appears stated age; No apparent distress; well-developed, well- nourished, other (appropriately responsive but mildly confused at times) Respiratory: chest is bilaterally symmetric, lungs clear to auscultation Cardiovascular: regular rate-rhythm, S1 and S2 Gastrointestional: soft, audible bowel sounds Extremities: no lower extremity edema bilateral Neurologic/Psychiatric: grossly intact (moves all extremities) Skin: normal color; No rash on exposed areas, No ulcerations on exposed areas; other (LACW with dressing in place; device implant site with steri-strips, no redness, no swelling, no drainage) A/P: Assessment: SSS/Paroxysmal atrial fibrillation S/P dual chamber PPM implant on 01-15-[address] Mcfarland Coronary artery disease, nonobstructive disease per cardiac catheterization done March 22, 2017, had a stress test done in December 2019 showing breast attenuation with no significant ischemia or infarction, EF [address] Mcfarland Echocardiogram done 01-14-[address] Mcfarland showing LVEF 55-65%. AoV sclerosis. LA mildly dilated SMB4PP1-ARKl score is 3, yearly risk of stroke without oral anticoagulation is 3.2 percent, maintained on Eliquis 5 mg twice daily Hypertension Hyperlipidemia Hypothyroidism Osteoarthritis Anxiety Carotid artery stenosis-last carotid duplex done in August [address] Mcfarland Dementia Plan: Continue current medication regimen Records from Dr. Riddle from the weekend and Dr. Mcfarland from last week reviewed GBAI HAYES MD FACP FACC CCDS Jan 25, 2021 16:37
== END 2021-01-25 12:29 ==
LOC: UNDOADMOB 16:33 → 4TH 16:33 → UNDODISOB 01-25 14:15
PROVIDERS: ADMIT Internal Medicine; ATTEND Internal Medicine
DX: R53.1 Weakness (principal); F03.90 Unspecified dementia, unspecified severity, without behavioral disturbance, psychotic disturbance, mood disturbance, and anxiety; R41.0 Disorientation, unspecified; E03.9 Hypothyroidism, unspecified; F41.9 Anxiety disorder, unspecified; I10 Essential (primary) hypertension; E78.00 Pure hypercholesterolemia, unspecified; Z79.01 Long term (current) use of anticoagulants; Z79.899 Other long term (current) drug therapy; Z95.0 Presence of cardiac pacemaker; Z90.710 Acquired absence of both cervix and uterus
CPT/HCPCS: 70450; 71045; 80053 ×3; 81000; 83605; 83735; 83880; 84145; 84443; 84484; 85025 ×2; 85027; 97162; 97166; G0378; G0379; 36415; 99211

== ENCOUNTER → 2021-05-21 | Outpatient (CLI) | payer MEDICARE, OTHER ==
[~2021-05-21] MED LIST changes: +TRAM-42 PO
--- NOTE | 2021-05-21 11:25 | Diagnostic Imaging Report ---
EXAMINATION: CT head without contrast. TECHNIQUE: Multiple contiguous axial images were obtained through the brain without the use of intravenous contrast. All CT scans use one or more of the following dose optimizing techniques: automated exposure control, MA and/or KvP adjustment based on patient size and exam type or iterative reconstruction. HISTORY: Headache, memory loss. COMPARISON: 01/21/2021. FINDINGS: The hong-white matter differentiation is normal. No mass effect or midline shift. There is age related cerebral atrophy with ex vacuo dilation of the ventricles. Periventricular white matter hypoattenuation is in keeping with chronic small vessel ischemic changes. Basilar cisterns are patent. There are no intra- or extra-axial fluid collections. There is no intracranial hemorrhage. The orbits are normal. Paranasal sinuses are normal. Mastoid air cells are clear. No soft tissue abnormality is seen. No osseous lesions or fractures are seen. IMPRESSION: 1. No acute intracranial abnormality. Dictated by: Dictated on workstation # [id number]
== END ==
LOC: RAD 11:00
PROVIDERS: ATTEND Internal Medicine
DX: R41.0 Disorientation, unspecified (principal); R41.3 Other amnesia; R51.9 Headache, unspecified
CPT/HCPCS: 70450

== ENCOUNTER 2021-05-24 11:57 | Emergency (ER) | payer MEDICARE, OTHER ==
[~2021-05-24] VITALS: Ht 162 cm; Wt 70.6 kg
[~2021-05-24 11:57] MED LIST changes: -TRAM-42 PO
--- NOTE | 2021-05-24 13:19 | ED Lower Extremity ---
General Chief Complaint: Lower Extremity Stated Complaint: L KNEE PAIN Source: patient Exam Limitations: no limitations (ABEBE SMALL APRN) History of Present Illness Date Seen by Provider: May 24, 2021 Time Seen by Provider: 13:18 Initial Comments To ER with left knee pain and swelling since this morning. Was walking on it fine when they got up and went to breakfast, then she went and laid down and upon getting back up was unable to bear weight on it. No fevers or chills or injury. Does not recall any injury. Resides at [facility]. Onset: just prior to arrival Severity: moderate Pain/Injury Location: left knee Method of Injury: fell Modifying Factors: Worse With Movement (ABEBE SMALL APRN) Allergies and Home Medications Allergies Coded Allergies: No Known Drug Allergies (Verified , 01/21/21) Home Medications Amlodipine Besylate 10 Mg Tablet, 5 MG PO 0900, (Reported) TAKES OF A 10MG TAB Apixaban 5 Mg Tablet, 5 MG PO BID, (Reported) Atenolol 25 Mg Tablet, 50 MG PO 0900, (Reported) TAKES 2 (25MG) TABS Cyanocobalamin (Vitamin B-12) 5,000 Mcg Tab.subl, 5,000 MCG SL DAILY, (Reported) Diclofenac Sodium 75 Mg Tablet.dr, 75 MG PO 0900,2100, (Reported) Donepezil HCl 10 Mg Tablet, 5 MG PO 2200, (Reported) TAKES OF A 10MG TAB Flecainide Acetate 50 Mg Tablet, 50 MG PO 0600,1400,2200, (Reported) Hydrocodone/Acetaminophen 1 Each Tablet, 1 EA PO BID PRN for PAIN-MODERATE (5-7) Prescribed by: ERIC GROSS on 01/25/21 0553 Levothyroxine Sodium 75 Mcg Tablet, 75 MCG PO 0600, (Reported) Lovastatin 20 Mg Tablet, 20 MG PO 0900, (Reported) Cuero-3/Dha/Epa/Fish Oil 1 Each Capsule, 1 EACH PO 0600,2200, (Reported) Tramadol HCl 50 Mg Tablet, 50 MG PO Q6H PRN for PAIN-MODERATE (5-7) Prescribed by: ABEBE SMALL on 05/24/21 1539 [Folate] 13,33/,800 TAB, 1 TAB PO HS, (Reported) FOLATE. 1333MCG DFE AND 800 MCG FOLIC ACID Patient Home Medication List Home Medication List Reviewed: Yes (ABEBE SMALL APRN) Review of Systems Constitutional: see HPI EENTM: see HPI Respiratory: no symptoms reported Cardiovascular: no symptoms reported Genitourinary: no symptoms reported Musculoskeletal: no symptoms reported Skin: no symptoms reported Psychiatric/Neurological: No Symptoms Reported (ABEBE SMALL APRN) Past Inzdkto-Vrlzcn-Ntnhtb Hx Patient Social History Tobacco Use?: No Substance use?: No Alcohol Use?: No Pt feels they are or have been: No (ABEBE SMALL APRN) Immunizations Up To Date Tetanus Booster (TDap): Less than 5yrs PED Vaccines UTD: No (ABEBE SMALL APRN) Past Medical History Surgeries: Yes (BUNIONECTOMY RIGHT FOOT) Orthopedic, Pacemaker Respiratory: Yes Pneumonia Cardiac: Yes (STRESS TEST 06/2013--MILD DISEASE, NO INTERVENTION. ) High Cholesterol, Hypertension Neurological: No Dementia Reproductive Disorders: No Female Reproductive Disorders: Denies Sexually Transmitted Disease: No HIV/AIDS: No Gastrointestinal: No Musculoskeletal: Yes Arthritis Endocrine: Yes Hypothyroidsim Loss of Vision: Denies Cancer: Yes (squamous cell) Skin Psychosocial: Yes Anxiety Integumentary: No Blood Disorders: No Adverse Reaction/Blood Tranf: No (ABEBE SMALL APRN) Family Medical History Patient reports no known family medical history. Physical Exam Vital Signs Vital Signs - First Documented 05/24/21 12:56 Temp 36.4 Pulse 65 Resp 20 B/P (MAP) 98/65 (76) Pulse Ox 98 O2 Delivery Room Air (HENNA PEÑA MD) Vital Signs Capillary Refill : (ABEBE SMALL APRN) Height, Weight, BMI Height: 5'5.00" Weight: 152lbs. 0.0oz. 68.398309ye; 25.90 BMI Method:Stated General Appearance: WD/WN, no apparent distress HEENT: PERRL/EOMI, normal ENT inspection Respiratory: no respiratory distress, no accessory muscle use Hips: bilateral hip non-tender, bilateral hip normal inspection, bilateral hip normal range of motion Legs: bilateral leg non-tender, bilateral leg normal inspection, bilateral leg normal range of motion Knees: bilateral knee non-tender, bilateral knee normal inspection, bilateral knee normal range of motion; left knee swelling Ankles: bilateral ankle non-tender, bilateral ankle normal inspection, b ilateral ankle normal range of motion Feet: bilateral foot non-tender, bilateral foot normal inspection, bilateral foot normal range of motion Neurologic/Psychiatric: alert, normal mood/affect, oriented x 3 Skin: normal color (ABEBE SMALL APRN) Procedures/Interventions Additional Procedures: Arthrocentesis Aspirating Progress Area superior and lateral to the superior lateral border of the patella was identified with some fluctuance. This was anesthetized using sterile technique with 2 mL of 1% lidocaine without epinephrine. A larger 18-gauge 1/2 in needle was then inserted and I was able to aspirate 40 mL of sanguineous effusion. Needle was withdrawn, bandage was applied. (ABEBE SMALL APRN) Progress/Results/Core Measures Results/Orders Lab Results Laboratory Tests Test 05/24/21 14:44 Range/Units Body Fluid Source SYNOVIAL Body Fluid Color RED Body Fluid Appearance MKD BLDY Body Fluid WBC 2000 /uL Body Fluid RBC [id number] /uL Body Fluid Polynuclear WBCs 70 % Body Fluid Mononuclear WBCs 2 % Body Fluid Lymphocytes 28 % Body Fluid Eosinophils 0 % Body Fluid Other Cells 0 % Body Fluid Crystals NOT SEEN (HENNA PEÑA MD) Medications Given in ED Current Medications Medications Dose Ordered Sig/Sheela Route Start Time Stop Time Status Last Admin Dose Admin Lidocaine HCl 20 ml ONCE ONCE INJ 05/24/21 14:00 05/24/21 14:01 DC 05/24/21 14:40 20 ML Tramadol HCl 50 mg ONCE ONCE PO 05/24/21 14:45 05/24/21 14:46 DC 05/24/21 14:49 50 MG (HENNA PEÑA MD) Vital Signs/I&O 05/24/21 12:56 Temp 36.4 Pulse 65 Resp 20 B/P (MAP) 98/65 (76) Pulse Ox 98 O2 Delivery Room Air (HENNA PEÑA MD) Diagnostic Imaging Diagonstic Imaging: Xray Comments NAME: JOY PILLAI MED REC#: [id number] PT STATUS: REG ER : 1935 PHYSICIAN: ABEBE SMALL APRN ADMIT DATE: 05/24/21/ER Draft Date of Exam:05/24/21 CT EXTREMITY LOWER LEFT WO EXAMINATION: CT of the left lower extremity from 05/24/2021. TECHNIQUE: Multiple contiguous axial images were obtained through the left lower extremity without the use of intravenous contrast. Sagittal and coronal reformations were then performed. Auto Exposure Controls were utilized during the CT exam to meet ALARA standards for radiation dose reduction. INDICATION: Joint effusion on recent radiographs. Injury. COMPARISON: Correlation to radiographs from 05/24/2021. FINDINGS: There is a nonspecific osseous protuberance along the anterior medial border of the distal femoral metadiaphysis, best seen on the coronal reconstructed imaging which appears benign on the axial thin-section imaging. No acute fractures appreciated. No dislocations. There is severe patellofemoral degenerative disease with narrowing and spurring as well as subchondral cystic change. Moderate medial joint space narrowing and spurring is noted with mild spurring laterally. Chondrocalcinosis is seen in the medial and lateral joint spaces, suggesting CPPD arthropathy. Multiple small loose bodies are seen throughout the joint. There is a small focus of air within the joint space, likely due to vacuum phenomenon. There is a hemarthrosis of uncertain etiology given a fracture is not identified. If symptoms persist, follow-up with MRI could provide further characterization. IMPRESSION: 1. No nondisplaced fractures appreciated, however a hemarthrosis is seen. If there is persistent pain, a follow-up MRI could better evaluate for an occult nondisplaced fracture. Diffuse tricompartmental degenerative disease is noted as well as chondrocalcinosis, suggesting CPPD arthropathy. Other findings, as above. Dictated on workstation # [id number] Dict: 05/24/21 1529 Trans: 05/24/21 1547 [id number] Interpreted by: RACHEL FAY MD Electronically signed by: (ABEBE SMALL APRN) Departure Communication (Admissions) She is on Eliquis for atrial fibrillation (ABEBE SMALL APRN) Impression Primary Impression: Hemarthrosis of knee, right Disposition: 01 HOME, SELF-CARE Condition: Stable Departure-Patient Inst. Decision time for Depature: 15:35 (ABEBE SMALL APRN) Referrals: ERIC GROSS DO (PCP/Family) Primary Care Physician FADUMO PALAFOX MD, MICHAEL P MD Patient Instructions: Hemarthrosis (DC) Add. Discharge Instructions: 1. Follow-up with Dr. Gross. Return to ER for any concerns. Ice pack to the knee 1 hour at a time several times a day. Pain medication as needed. Oz wrap to the knee. Follow-up with orthopedics. Call one of your choosing tomorrow to make an appointment to be seen. All discharge instructions reviewed with patient and/or family. Voiced understanding. Scripts Tramadol HCl (Ultram) 50 Mg Tablet 50 MG PO Q6H PRN for PAIN-MODERATE (5-7), #14 TAB Prov: ABEBE SMALL APRN 05/24/21 ATTENDING PHYSICIAN NOTE: I was physically present as attending physician in the emergency department during the care of this patient, but I was not directly involved in the decision making or delivery of care for this patient. (HENNA PEÑA MD) Copy Copies To 1: ERIC GROSS PETER J APRN May 24, 2021 13:19 HENNA PEÑA MD May 24, 2021 20:35
--- NOTE | 2021-05-24 13:53 | Diagnostic Imaging Report ---
CLINICAL INDICATION: Patient with left knee swelling and pain. Patient has no history of trauma or remember when the swelling started. EXAM: X-ray of the left knee, 3 views. COMPARISON: None. FINDINGS: There is no acute fracture or dislocation. There are moderately hypertrophic spurs in the tricompartmental region. There is moderate to severe medial compartment narrowing. There is chondrocalcinosis involving the medial and lateral compartments. There is a moderate-sized left knee effusion. IMPRESSION: 1: There is no acute fracture or dislocation. 2: There is a moderate left knee effusion of unknown etiology. 3: There is chondrocalcinosis involving the left knee which may be seen with CPPD. 4: There is moderate to severe tricompartmental osteoarthritis of the left knee. Dictated by: Dictated on workstation # [id number]
[2021-05-24] MEDS ORDERED: TRIAMCINOLONE ACET (KENALOG-40) 40 MG/ML 1 ML VIAL IA ONE (14:00)
[2021-05-24] MEDS ORDERED: LIDOCAINE 1% INJ 20 ML 20 ML VIAL INJ ONE (14:00)
[2021-05-24 15:26] LABS: BODY FLUID APPEARENCE MKD BLDY; BODY FLUID COLOR RED; BODY FLUID SOURCE SYNOVIAL
[2021-05-24] MEDS ORDERED: TRAM-42 PO (15:39)
--- NOTE | 2021-05-24 15:47 | Diagnostic Imaging Report ---
EXAMINATION: CT of the left lower extremity from 05/24/2021. TECHNIQUE: Multiple contiguous axial images were obtained through the left lower extremity without the use of intravenous contrast. Sagittal and coronal reformations were then performed. Auto Exposure Controls were utilized during the CT exam to meet ALARA standards for radiation dose reduction. INDICATION: Joint effusion on recent radiographs. Injury. COMPARISON: Correlation to radiographs from 05/24/2021. FINDINGS: There is a nonspecific osseous protuberance along the anterior medial border of the distal femoral metadiaphysis, best seen on the coronal reconstructed imaging which appears benign on the axial thin-section imaging. No acute fractures appreciated. No dislocations. There is severe patellofemoral degenerative disease with narrowing and spurring as well as subchondral cystic change. Moderate medial joint space narrowing and spurring is noted with mild spurring laterally. Chondrocalcinosis is seen in the medial and lateral joint spaces, suggesting CPPD arthropathy. Multiple small loose bodies are seen throughout the joint. There is a small focus of air within the joint space, likely due to vacuum phenomenon. There is a hemarthrosis of uncertain etiology given a fracture is not identified. If symptoms persist, follow-up with MRI could provide further characterization. IMPRESSION: 1. No nondisplaced fractures appreciated, however a hemarthrosis is seen. If there is persistent pain, a follow-up MRI could better evaluate for an occult nondisplaced fracture. Diffuse tricompartmental degenerative disease is noted as well as chondrocalcinosis, suggesting CPPD arthropathy. Other findings, as above. Dictated by: Dictated on workstation # [id number]
[2021-05-24 16:06] VITALS: BP 98/65
[2021-05-24 16:11] LABS: BODY FLUID RBC COUNT 1920000 /uL; BODY FLUID WBC TOTAL COUNT 2000 /uL
[2021-05-24 16:30] LABS: BF OTHER CELLS 0 %; LYMPHOCYTES,BODY FLUID 28 %
== END 2021-05-24 16:06 | disposition home or self-care (01) ==
LOC: EDUNIT# 11:57 → ER 11:58
DX: M25.061 Hemarthrosis, right knee (principal); I10 Essential (primary) hypertension; E03.9 Hypothyroidism, unspecified; E78.00 Pure hypercholesterolemia, unspecified; F03.90 Unspecified dementia, unspecified severity, without behavioral disturbance, psychotic disturbance, mood disturbance, and anxiety; Z79.01 Long term (current) use of anticoagulants; Z79.890 Hormone replacement therapy; Z79.899 Other long term (current) drug therapy
CPT/HCPCS: 73562; 73700; 87070; 87205; 89051; 89060

== ENCOUNTER → 2021-06-30 | Outpatient (CLI) | payer MEDICARE, OTHER ==
[~2021-06-30] MED LIST changes: +TRAM-42 PO
--- NOTE | 2021-06-30 14:49 | Diagnostic Imaging Report ---
INDICATION: Arrhythmia. EXAMINATION: Portable chest at 2:48 PM. FINDINGS: There is a dual-chamber pacemaker with leads projecting over the right atrium and right ventricle. There are no abandoned leads or fractured leads seen. The heart size and pulmonary vascularity are normal. The lungs are clear. There are no effusions or pneumothoraces. The patient appears to have had previous tendon repair in the right shoulder. IMPRESSION: No acute abnormalities in the chest. Dictated by: Dictated on workstation # [id number]
--- NOTE | 2021-06-30 15:39 | Diagnostic Imaging Report ---
PROCEDURE: CT cervical spine without contrast. TECHNIQUE: Multiple contiguous axial images were obtained through the cervical spine without the use of intravenous contrast. Sagittal and coronal reformations were then performed. Auto Exposure Controls were utilized during the CT exam to meet ALARA standards for radiation dose reduction. INDICATION: Neck pain. COMPARISON: No priors. FINDINGS: The neck is held in flexion. There is reversal of normal lordosis centered about the C4-C5 level. There is anterolisthesis of C3 on C4. The posterior cortices are off about 5 mm. Remaining levels are aligned within normal limits. There are degenerative changes to the discs, endplates, facets, and uncovertebral joints throughout the cervical spine. Craniocervical relationship is unremarkable. C1-C2 degenerative narrowing of the predental space present without significant stenosis. The C2-C3 level showed no significant canal or foraminal stenosis. C3-C4: Grade 1 degenerative listhesis noted. There is a moderate severity of central canal stenosis and moderate right and oszk-xk-vqpegaft left foraminal narrowing. C4-C5: Osteophyte disc material results in a moderate degree of canal stenosis, and there is moderate bony biforaminal narrowing. C5-C6: Osteophyte disc material flattens the ventral thecal sac and results in severe chronic bony canal stenosis. There is severe bony biforaminal narrowing. C6-C7: There is a moderate magnitude of central canal stenosis with brsjxpkt-ja-zyjoth right and gysf-jj-psqfbwkv left foraminal narrowing. C7-T1: No substantial stenosis. IMPRESSION: 1. Advanced brandon-cervical spondylosis, reversal of lordosis, and grade 1 degenerative listhesis of C3 on C4. 2. Multilevel mid to lower substantial degrees of canal and bony foraminal stenoses, detailed level by level above. Dictated by: Dictated on workstation # [id number]
--- NOTE | 2021-06-30 15:52 | Diagnostic Imaging Report ---
PROCEDURE: MR imaging cervical spine without contrast. TECHNIQUE: Multiplanar, multisequence MR imaging of the cervical spine was performed without contrast. INDICATION: Neck pain. COMPARISON: CT cervical spine without contrast also performed today. FINDINGS: Grade 1 anterolisthesis of C3 on C4 and retrolisthesis of C4 on C5, C5 on C6 and C6 on C7. This results in marked reversal of the normal cervical lordosis. Vertebral body heights are preserved. Mild edema in the superior anterior T2 endplate where there is also less than 10% height loss. Mild edema in the anterior superior endplates of C7, T1, T2, T3 and T4 appears to be associated with chronic height loss and is likely due to Modic type I degenerative changes. No abnormal signal in the cervical spinal cord. Indeterminate T2 hyperintense nodule in the left thyroid measuring up 1.8 cm. Visualized paravertebral soft tissues are otherwise unremarkable. C2-C3: No spinal canal or neural foraminal narrowing. C3-C4: The anterolisthesis, ligamentous hypertrophy and osteophytic ridging result in severe right and mild left neural foraminal narrowing. Mild spinal canal narrowing. C4-C5: The retrolisthesis and osteophytic ridging results in severe bilateral neural foraminal narrowing. Mild spinal canal narrowing. C5-C6: Retrolisthesis, ligamentous hypertrophy and osteophytic ridging results in severe spinal canal stenosis. There is also severe bilateral neural foraminal narrowing. C6-C7: Disc osteophyte complex results in severe right and moderate left neural foraminal narrowing. Mild spinal canal narrowing. C7-T1: No substantial spinal canal or neural foraminal narrowing. IMPRESSION: 1. Spondylotic changes result in severe spinal canal stenosis at C5-C6. 2. Multilevel high-grade neural foraminal narrowing detailed above level by level. 3. Very mild edema in the superior anterior endplates of C7-T4 is associated with likely chronic less than 10% height loss at each level. These findings are likely due to degenerative change. Multiple acute compression deformities would be unlikely, particularly when compared to the sclerosis seen on the comparison CT also performed today. Dictated by: Dictated on workstation # [id number]
== END ==
LOC: RAD 14:15
PROVIDERS: ATTEND Pain Medicine Interventional Pain Medicine
DX: M48.02 Spinal stenosis, cervical region (principal); M47.812 Spondylosis without myelopathy or radiculopathy, cervical region; M43.12 Spondylolisthesis, cervical region; M43.8X2 Other specified deforming dorsopathies, cervical region; E04.1 Nontoxic single thyroid nodule; I49.9 Cardiac arrhythmia, unspecified; Z95.0 Presence of cardiac pacemaker
CPT/HCPCS: 71045; 72125; 72141

== ENCOUNTER → 2022-02-08 | Outpatient (CLI) | payer MEDICARE, OTHER ==
--- NOTE | 2022-02-08 14:00 | Diagnostic Imaging Report ---
INDICATION: Left knee pain. TIME OF EXAM: 1:16 PM 4 views left knee were obtained. FINDINGS: There is generalized demineralization. There is significant medial and patellofemoral compartmental degenerative change with joint space narrowing and marginal spurring. There is chondrocalcinosis of the lateral compartment. No fractures are seen. There is no joint effusion. 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 No acute bony abnormality is detected. Dictated by: Dictated on workstation # [id number]
== END ==
LOC: ORTHO 12:59
PROVIDERS: ATTEND Orthopaedic Surgery
DX: M17.12 Unilateral primary osteoarthritis, left knee (principal)
CPT/HCPCS: 20610; 73564; G0463

== ENCOUNTER 2022-08-17 14:58 | Emergency (ER) | payer MEDICARE, OTHER ==
[~2022-08-17] VITALS: Ht 165 cm; Wt 63.0 kg
[2022-08-17 15:21] LABS: BASOPHILS % (AUTO) 0 % (0-10); EOSINOPHILS % (AUTO) 1 % (0-10); HEMATOCRIT 44 % (35-52); HEMOGLOBIN 15.2 g/dL (11.5-16.0); LYMPHOCYTES # (AUTO) 2.3 10^3/uL (1.0-4.0); LYMPHOCYTES % (AUTO) 33 % (12-44); MEAN CORPUSCULAR HEMOGLOBIN 35 pg (25-34); MEAN CORPUSCULAR HGB CONC 35 g/dL (32-36); MEAN CORPUSCULAR VOLUME 100 fL (80-99); MEAN PLATELET VOLUME 10.2 fL (9.0-12.2); MONOCYTES # (AUTO) 0.8 10^3/uL (0.0-1.0); MONOCYTES % (AUTO) 11 % (0-12); NEUTROPHILS # (AUTO) 3.8 10^3/uL (1.8-7.8); NEUTROPHILS % (AUTO) 54 % (42-75); PLATELET COUNT 235 10^3/uL (130-400); WHITE BLOOD COUNT 6.9 10^3/uL (4.3-11.0)
--- NOTE | 2022-08-17 15:28 | ED Chest Pain ---
General Chief Complaint: Chest Pain Stated Complaint: CHEST PAIN Nursing Triage Note: ARRIVED VIA AMB TO ROOM 05 WITH COMPLAINTS OF CHEST PAIN AND SOA THAT STARTED THIS AM. Source: patient, family Exam Limitations: clinical condition (Dementia) History of Present Illness Date Seen by Provider: Aug 17, 2022 Time Seen by Provider: 15:11 Initial Comments This 86-year-old woman is brought to the emergency room by her with concerns about episodes of paroxysmal atrial fibrillation. She manifests atrial fibrillation with shortness of breath and a sensation that her "chest is going to explode". She has history of paroxysmal atrial fibrillation and is treated by Dr. Mcfarland with flecainide, atenolol, and Eliquis. On EKG during this visit she demonstrates atrial fibrillation with RVR with a heart rate of 130. During interview in the exam room she alternates between a paced rhythm in the 80s and sinus rhythm. Patient does not exhibit any chest pain or shortness of breath at present. She has significant dementia and is a poor historian. provides almost all of the history. She is a resident of [facility]. 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 Gross is her primary care provider. Allergies and Home Medications Allergies Coded Allergies: No Known Drug Allergies (Verified , 01/21/21) Patient Home Medication List Home Medication List Reviewed: Yes Amlodipine Besylate (Amlodipine Besylate) 10 Mg Tablet, 5 MG PO 0900, (Reported) Entered as Reported by: ALBER VÁSQUEZ on 01/14/21 1038 Apixaban (Eliquis) 5 Mg Tablet, 5 MG PO BID, (Reported) Entered as Reported by: ALBER VÁSQUEZ on 01/14/21 1038 Atenolol (Atenolol) 25 Mg Tablet, 50 MG PO 0900, (Reported) Entered as Reported by: ALBER VÁSQUEZ on 01/14/21 1038 Cyanocobalamin (Vitamin B-12) (Vitamin B-12) 5,000 Mcg Tab.subl, 5,000 MCG SL DAILY, (Reported) Entered as Reported by: ALBER VÁSQUEZ on 01/14/21 1052 Diclofenac Sodium (Diclofenac Sodium) 75 Mg Tablet.dr 75 MG PO 0900,2100, (Re ported) Entered as Reported by: ALBER VÁSQUEZ on 01/14/21 1038 Donepezil HCl (Donepezil HCl) 10 Mg Tablet, 5 MG PO 2200, (Reported) Entered as Reported by: DAJA GRIFFITHS on 01/13/21 2234 Flecainide Acetate (Flecainide Acetate) 50 Mg Tablet, 50 MG PO 0600,1400,2200, (Reported) Entered as Reported by: ALBER VÁSQUEZ on 01/14/21 1038 Flecainide Acetate (Flecainide Acetate) 50 Mg Tablet, 50 MG PO BID Prescribed by: HENNA VOGEL on 08/17/22 1719 Hydrocodone/Acetaminophen (Hydrocodone-Acetamin 5-325 mg) 1 Each Tablet, 1 EA PO BID PRN for PAIN-MODERATE (5-7) Prescribed by: ERIC GROSS on 01/25/21 0553 Levothyroxine Sodium (Levothyroxine Sodium) 75 Mcg Tablet, 75 MCG PO 0600, (Reported) Entered as Reported by: ALBER VÁSQUEZ on 01/14/21 1038 Lovastatin (Lovastatin) 20 Mg Tablet, 20 MG PO 0900, (Reported) Entered as Reported by: ALBER VÁSQUEZ on 01/14/21 1038 [place]-3/Dha/Epa/Fish Oil (Fish Oil 1,000 mg Softgel) 1 Each Capsule, 1 EACH PO 0600,2200, (Reported) Entered as Reported by: ALBER VÁSQUEZ on 01/14/21 1038 Tramadol HCl (Ultram) 50 Mg Tablet, 50 MG PO Q6H PRN for PAIN-MODERATE (5-7) Prescribed by: ABEBE SMALL on 05/24/21 1539 [Folate] 13,33/,800 TAB, 1 TAB PO HS, (Reported) Entered as Reported by: ALBER VÁSQUEZ on 01/14/21 1038 Review of Systems Review of Systems Constitutional: no symptoms reported EENTM: No Symptoms Reported Respiratory: See HPI Cardiovascular: See HPI Gastrointestinal: No Symptoms Reported Genitourinary: No Symptoms Reported Musculoskeletal: no symptoms reported Skin: no symptoms reported Psychiatric/Neurological: See HPI Endocrine: No Symptoms Reported Hematologic/Lymphatic: No Symptoms Reported Past Baotjap-Tjfnvc-Ysifou Hx Patient Social History Tobacco Use?: No Use of E-Cig and/or Vaping dev: No Substance use?: No Alcohol Use?: No Immunizations Up To Date Tetanus Booster (TDap): Less than 5yrs PED Vaccines UTD: No First/Initial COVID19 Vaccinat: UNKNOWN COVID19 Vaccine Hollock Maker: KATJA Past Medical History Surgeries: Yes (BUNIONECTOMY RIGHT FOOT) Appendectomy, Hysterectomy, Orthopedic, Pacemaker Respiratory: Yes Pneumonia Cardiac: Yes (STRESS TEST 06/2013--MILD DISEASE, NO INTERVENTION. ) Atrial Fibrillation (Paroxysmal), High Cholesterol, Hypertension Neurological: Yes Dementia Reproductive Disorders: No Female Reproductive Disorders: Denies Sexually Transmitted Disease: No HIV/AIDS: No Gastrointestinal: No Musculoskeletal: Yes Arthritis Endocrine: Yes Hypothyroidsim Loss of Vision: Denies Cancer: Yes (squamous cell) Skin Psychosocial: Yes Anxiety Integumentary: No Blood Disorders: No Adverse Reaction/Blood Tranf: No Family Medical History Patient reports no known family medical history. Physical Exam Vital Signs Vital Signs - First Documented 08/17/22 08/17/22 15:03 17:38 Temp 36.6 Pulse 86 Resp 14 B/P (MAP) 122/89 (100) Pulse Ox 97 O2 Delivery Room Air Capillary Refill : Less Than 3 Seconds Height, Weight, BMI Height: 5'5.00" Weight: 152lbs. 0.0oz. 68.519052uo; 23.00 BMI Method:Stated General Appearance: No Apparent Distress, WD/WN HEENT: PERRL/EOMI, Normal ENT Inspection Neck: Normal Inspection Respiratory: Lungs Clear, Normal Breath Sounds, No Accessory Muscle Use Cardiovascular: Regular Rate, Rhythm, No Edema, No Murmur Gastrointestinal: Soft Extremity: Normal Inspection, No Pedal Edema Neurologic/Psychiatric: Alert, No Motor/Sensory Deficits, Other (Confused from dementia at baseline) Skin: Normal Color, Warm/Dry Progress/Results/Core Measures Results/Orders Lab Results Laboratory Tests Test 08/17/22 15:10 Range/Units White Blood Count 6.9 4.3-11.0 10^3/uL Red Blood Count 4.37 3.80-5.11 10^6/uL Hemoglobin 15.2 11.5-16.0 g/dL Hematocrit 44 35-52 % Mean Corpuscular Volume 100 H 80-99 fL Mean Corpuscular Hemoglobin 35 H 25-34 pg Mean Corpuscular Hemoglobin Concent 35 32-36 g/dL Red Cell Distribution Width 13.1 10.0-14.5 % Platelet Count 235 130-400 10^3/uL Mean Platelet Volume 10.2 9.0-12.2 fL Immature Granulocyte % (Auto) 0 % Neutrophils (%) (Auto) 54 42-75 % Lymphocytes (%) (Auto) 33 12-44 % Monocytes (%) (Auto) 11 0-12 % Eosinophils (%) (Auto) 1 0-10 % Basophils (%) (Auto) 0 0-10 % Neutrophils # (Auto) 3.8 1.8-7.8 10^3/uL Lymphocytes # (Auto) 2.3 1.0-4.0 10^3/uL Monocytes # (Auto) 0.8 0.0-1.0 10^3/uL Eosinophils # (Auto) 0.0 0.0-0.3 10^3/uL Basophils # (Auto) 0.0 0.0-0.1 10^3/uL Immature Granulocyte # (Auto) 0.0 0.0-0.1 10^3/uL Prothrombin Time 15.4 H 12.2-14.7 SEC INR Comment 1.2 0.8-1.4 Activated Partial Thromboplast Time 38 H 24-35 SEC Sodium Level 144 135-145 MMOL/L Potassium Level 3.9 3.6-5.0 MMOL/L Chloride Level 105 98-107 MMOL/L Carbon Dioxide Level 26 21-32 MMOL/L Anion Gap 13 5-14 MMOL/L Blood Urea Nitrogen 12 7-18 MG/DL Creatinine 0.87 0.60-1.30 MG/DL Estimat Glomerular Filtration Rate 66 BUN/Creatinine Ratio 14 Glucose Level 110 H 70-105 MG/DL Calcium Level 10.8 H 8.5-10.1 MG/DL Corrected Calcium 10.4 H 8.5-10.1 MG/DL Magnesium Level 2.3 1.6-2.4 MG/DL Total Bilirubin 0.6 0.1-1.0 MG/DL Aspartate Amino Transf (AST/SGOT) 25 5-34 U/L Alanine Aminotransferase (ALT/SGPT) 20 0-55 U/L Alkaline Phosphatase 67 40-136 U/L Myoglobin 24.6 10.0-92.0 NG/ML Troponin I < 0.028 <0.028 NG/ML Total Protein 7.4 6.4-8.2 GM/DL Albumin 4.5 3.2-4.5 GM/DL Thyroid Stimulating Hormone (TSH) 2.15 0.35-4.94 UIU/ML Free Thyroxine 1.06 0.70-1.48 NG/DL My Orders Orders - HENNA PEÑA MD Ekg Tracing (08/17/22 15:01) Cbc With Automated Diff (08/17/22 15:11) Magnesium (08/17/22 15:11) Chest 1 View, Ap/Pa Only (08/17/22 15:11) Comprehensive Metabolic Panel (08/17/22 15:11) Myoglobin Serum (08/17/22 15:11) Protime With Inr (08/17/22 15:11) Partial Thromboplastin Time (08/17/22 15:11) O2 (08/17/22 15:11) Monitor-Rhythm Ecg Trace Only (08/17/22 15:11) Ed Iv/Invasive Line Start (08/17/22 15:11) Troponin I [place] (08/17/22 15:10) Thyroid Stimulating Hormone (08/17/22 17:12) Free T4 (Free Thyroxine) (08/17/22 17:12) Flecainide Tablet (Tambocor Tablet) (08/17/22 17:30) Medications Given in ED Current Medications Medications Dose Ordered Sig/Sheela Route Start Time Stop Time Status Last Admin Dose Admin Flecainide Acetate 50 mg ONCE ONCE PO 08/17/22 17:30 08/17/22 17:31 DC 08/17/22 17:31 50 MG Vital Signs/I&O 08/17/22 08/17/22 15:03 17:38 Temp 36.6 Pulse 86 71 Resp 14 B/P (MAP) 122/89 (100) 116/88 Pulse Ox 97 97 O2 Delivery Room Air Room Air Blood Pressure Mean: 100 Progress Progress Note : Progress Note Work-up was relatively unremarkable. Patient had no more runs of sustained A. fib with RVR. I discussed the situation with Dr. Mcfarland. He recommended increasing the flecainide from 50 mg daily to 50 mg twice daily. An additional dose was given to her prior to departing the ER. Initial ECG Impression Date: Aug 17, 2022 Initial ECG Impression Time: 15:08 Initial ECG Rate: 130 Initial ECG Rhythm: A Fib/Flutter Initial ECG Impression: Atrial Fibrillation w/RVR Comment Atrial fibrillation with RVR. No ischemic ST elevation or depression. No axis deviation. Diagnostic Imaging Diagonstic Imaging: Xray Plain Films/CT/US/NM/MRI: chest Comments NAME: JOY PILLAI [facility] REC#: [id number] PT STATUS: REG ER : 1935 PHYSICIAN: HENNA PEÑA MD ADMIT DATE: 08/17/22/ER Draft Date of Exam:08/17/22 CHEST 1 VIEW, AP/PA ONLY INDICATION: Chest pain. AP view of the chest is obtained with comparison made to study of 06/30/2021. FINDINGS: Heart size and pulmonary vascularity are within normal limits, and the lungs are clear, bilaterally. There are stable surgical findings in the right shoulder with dual-chamber left anterior chest wall pacemaker in place. IMPRESSION: Unremarkable chest. Dictated on workstation # [id number] Dict: 08/17/22 1541 Trans: 08/17/22 1545 [id number] Interpreted by: MAIKEL KIM MD Departure Impression Primary Impression: Atrial fibrillation with RVR Additional Impression: Paroxysmal atrial fibrillation Disposition: 01 HOME, SELF-CARE Condition: Stable Departure-Patient Inst. Decision time for Depature: 17:17 Referrals: ERIC GROSS DO (PCP/Family) Primary Care Physician Patient Instructions: Atrial Fibrillation and Atrial Flutter ED Add. Discharge Instructions: According to your medication list, you are presently taking flecainide 50 mg once daily. This needs to be increased to twice daily. You were given a second dose in the emergency room so you do not need to take an additional dose at home this evening. Start taking twice daily tomorrow. Follow-up with Dr. Mcfarland as soon as possible. Please call his office in the morning to schedule the appointment. Return to the emergency room if you have worsening symptoms despite following these instructions. A new prescription for flecainide has been sent to [facility] to ensure you have appropriate quantity. All discharge instructions reviewed with patient and/or family. Voiced understanding. Scripts Flecainide Acetate (Flecainide Acetate) 50 Mg Tablet 50 MG PO BID, #60 TAB Prov: HENNA PEÑA MD 08/17/22 Copy Copies To 1: THERON MCFARLAND MD Copies To 2: ERIC GROSS JOSHUA T MD Aug 17, 2022 15:28
[2022-08-17 15:42] LABS: ALBUMIN 4.5 GM/DL (3.2-4.5); CHLORIDE 105 MMOL/L (98-107); POTASSIUM 3.9 MMOL/L (3.6-5.0); SODIUM 144 MMOL/L (135-145)
[2022-08-17 15:43] LABS: CALCIUM 10.8 MG/DL (8.5-10.1); INR 1.2 (0.8-1.4); PROTHROMBIN TIME PATIENT 15.4 SEC (12.2-14.7)
[2022-08-17 15:44] LABS: GLUCOSE 110 MG/DL (70-105)
[2022-08-17 15:45] LABS: TOTAL PROTEIN 7.4 GM/DL (6.4-8.2)
--- NOTE | 2022-08-17 15:45 | Diagnostic Imaging Report ---
INDICATION: Chest pain. AP view of the chest is obtained with comparison made to study of 06/30/2021. FINDINGS: Heart size and pulmonary vascularity are within normal limits, and the lungs are clear, bilaterally. There are stable surgical findings in the right shoulder with dual-chamber left anterior chest wall pacemaker in place. IMPRESSION: Unremarkable chest. Dictated by: Dictated on workstation # [id number]
[2022-08-17 15:46] LABS: BILIRUBIN,TOTAL 0.6 MG/DL (0.1-1.0); CARBON DIOXIDE 26 MMOL/L (21-32)
[2022-08-17 15:48] LABS: ALKALINE PHOSPHATASE 67 U/L (40-136); CREATININE SERUM 0.87 MG/DL (0.60-1.30); GFR ESTIMATED 66
[2022-08-17 15:49] LABS: BUN/CREATININE RATIO 14
[2022-08-17 15:51] LABS: ALANINE AMINOTRANSFERASE 20 U/L (0-55); MAGNESIUM 2.3 MG/DL (1.6-2.4)
[2022-08-17] MEDS ORDERED: FLEC50TA PO (17:19)
[2022-08-17] MEDS ORDERED: FLECAINIDE 100 MG (TAMBOCOR) TAB PO ONE (17:30)
[2022-08-17 17:38] VITALS: BP 116/88
[2022-08-17 18:14] LABS: FREE T4 (FREE THYROXINE) 1.06 NG/DL (0.70-1.48)
== END 2022-08-17 17:35 | disposition home or self-care (01) ==
LOC: EDUNIT# 14:58 → ER 15:00
DX: I48.20 Chronic atrial fibrillation, unspecified (principal); I48.0 Paroxysmal atrial fibrillation; Z95.0 Presence of cardiac pacemaker; Z28.310 Unvaccinated for COVID-19
CPT/HCPCS: 36415; 71045; 80053; 83735; 83874; 84439; 84443; 84484; 85025; 85610; 85730; 93005; 93041

== ENCOUNTER → 2022-08-25 | Outpatient (CLI) | payer MEDICARE, OTHER | LOC: CARD 15:00 | PROVIDERS: ATTEND Internal Medicine Cardiovascular Disease | DX: I08.0 Rheumatic disorders of both mitral and aortic valves (principal); I11.9 Hypertensive heart disease without heart failure | CPT/HCPCS: 93306 ==

== ENCOUNTER → 2022-10-05 | Outpatient (CLI) | payer MEDICARE, OTHER | LOC: ORTHO 10:00 | PROVIDERS: ATTEND Orthopaedic Surgery | DX: M17.12 Unilateral primary osteoarthritis, left knee (principal); I10 Essential (primary) hypertension; E78.5 Hyperlipidemia, unspecified; E03.9 Hypothyroidism, unspecified | CPT/HCPCS: 20610 ==

== ENCOUNTER → 2023-06-28 | Outpatient (CLI) | payer MEDICARE, OTHER ==
[~2023-06-28] MED LIST changes: +CATHETER FLUSH 10 ML SYR IVP PRN; +REGADENOSON 0.4 MG/5 ML SYR (LEXISCAN) IV ONE
[2023-06-28 09:14] VITALS: BP 147/109
== END ==
LOC: CARD 08:21
PROVIDERS: ATTEND Internal Medicine Cardiovascular Disease
DX: I10 Essential (primary) hypertension (principal); I25.10 Atherosclerotic heart disease of native coronary artery without angina pectoris
CPT/HCPCS: 78452; 93017; A9502